=== PATIENT | female | born 1940 | race Caucasian/White ===

== ENCOUNTER 2018-08-17 11:49 | Outpatient (REF) | payer MEDICARE, SELFPAY ==
[2018-08-17 19:35] LABS: ALT 20 U/L (12-78); AST 12 U/L (15-37); Cholesterol 164 mg/dL (50-200); HDL Cholesterol 67 mg/dL (40-60); LDL CHOLESTEROL 73 mg/dL (<100); Triglyceride 134 mg/dL (30-150)
== END 2018-08-17 12:09 ==
LOC: NCHCN 11:49
PROVIDERS: PCP Nurse Practitioner Family; Visit Provider Nurse Practitioner Family
DX: E78.5 Hyperlipidemia, unspecified (principal); E03.9 Hypothyroidism, unspecified
CPT/HCPCS: 80061; 83721; 84443; 84450; 84460

== ENCOUNTER 2018-12-13 12:29 | Emergency (ER) | payer MEDICARE, SELFPAY ==
[2018-12-13] VITALS (20 sets, daily range): BP systolic 133–151; BP diastolic 62–75; PULSE 0–81; RESP 14–25; TEMP 36.4; O2SAT 96–100
--- NOTE | 2018-12-13 12:34 | ED.GENADUL_ITS ---
Discharge Plan Disposition Patient Disposition: [facility] Condition: Stable Discharge Details Chief Complaint: Chest Pain Clinical Impression: STEMI (ST elevation myocardial infarction) Primary Care Provider: Belinda Farley ED Provider: Iwona Roth Home Meds and New Rx's Prescriptions: No Action polyethylene glycol 3350 [Miralax] 17 GM powder in packet 17 gm PO for colonoscopy Qty: 1 RF: 0 simvastatin 40 MG tablet 1 tab PO HS RF: 0 levothyroxine [Synthroid] 25 MCG tablet 25 mcg PO DAILY RF: 0 Discharge Data Discharge Date/Time-TO BE ENTERED AT DEPARTURE: 12/13/18 13:37 Medical Decision Making 1235 -- 78-year-old female with history of hypothyroidism, hypertension, hyperlipidemia who presents with anterior chest pain that started while walking and working around the house ~ 2 hours ago. EKG noted a rate of 65, sinus with [address] elevation 1, 2, aVF, V2, [address] elevation in V3 and V6 and [address] elevation noted in V4 and V5 consistent with anterior lateral STEMI. Patient moved to room 2 and 2 large-bore IV started, IV fluids, 325 mg aspirin, heparin morphine, Zofran ordered. Pt is hemodynamically stable. BP 147/55. HR 60s. Her chest pain is 8/10. 1239 -- [facility] cardiology paged through transfer center. STEMI alert called. 1248 -- D/w [facility] cardiology - pt accepted for transfer to [facility] lab intern - accepting physician Dr. Willingham. Agrees with plan for heparin bolus and drip at this time, nitro drip at 40mcg/min for pain, and if [facility] can transport to [facility] within 1 hour, will hold on lytics, if more than 1 hour, would want lytics. 1256 -- [facility] will be here in 25 minutes. Will hold on TNK. 1303 -- d/w [facility] cardiology - based on timeframe of [facility] to transport pt to cathlab ~ 80 min total, would like give lytics at this time. Would like half the recommended dose TNK (which will be 15mg) and 75mg plavix PO. Patient agreeable with plan. 1324 -- [facility] in ED. Labs reviewed. Normal coagulation studies. pH 7.34 PCO2 52 on VBG. Mag 1.9. Troponin 0.61. BNP 126. Chest x-ray appears negative. Medical Records Medical records reviewed: Yes I reviewed the patient's medical records. Imaging Data Radiologic Study: Radiologist's impression: PORTABLE AP CHEST AT 12:45 HOURS: The heart is not enlarged. The lungs appear generally clear. Note is made of an apparent spinal stimulator overlying the lower thoracic region. CONCLUSION: No evidence of acute process. Lab Data Lab results reviewed: Yes I reviewed the patient's lab results. Laboratory Tests Range/Units 12/13/18 12/13/18 12/13/18 12:43 12:43 12:43 WBC (4.4-10.8) k/cumm 11.24 H RBC (4.00-5.20) m/cumm 4.65 Hgb (12.0-15.5) g/dL 14.1 Hct (36.0-46.0) % 42.8 MCV (80-95) fL 92.0 MCH (27.0-33.0) pg 30.3 MCHC (32.0-36.0) g/dL 32.9 RDW (11.7-14.6) % 14.8 H Plt Count (130-400) x1000/uL 345 MPV (8.0-11.0) fL 10.6 Immature Gran % 0.3 Neutrophils % 65.4 Lymphocytes % 22.3 Monocytes % 11.2 Eosinophils % 0.5 Basophils % 0.3 Absolute Neutrophils (1.2-6.7) k/cumm 7.35 H Absolute Lymphocytes (1.2-3.4) k/cumm 2.51 Absolute Monocytes (0.11-0.7) k/cumm 1.26 H Absolute Eosinophils (0.0-0.7) k/cumm 0.06 Absolute Basophils (0.0-0.2) k/cumm 0.03 PT (9.3-11.0) sec 9.9 INR (0.9-1.1) 1.0 APTT (21.0-31.4) sec 22.0 VBG pH (7.32-7.43) VBG pCO2 (34-47) mm/Hg VBG pO2 (28-44) mm/Hg VBG HCO3 (22-28) mmol/L VBG Total CO2 (22-29) mmol/L VBG O2 Saturation (70-80) % VBG Base Excess (-3-3) mmol/L Sodium (136-145) mmol/L 140 Potassium (3.5-5.1) mmol/L 4.2 Chloride (98-107) mmol/L 103 Carbon Dioxide (21.0-32.0) mmol/L 27.6 Anion Gap (3-11) mmol/L 9.4 BUN (7-18) mg/dL 7 Creatinine (0.55-1.02) mg/dL 0.64 Estimated GFR/1.73 m2 (mL/min/1.73m2) >= 60.00 Glucose (70-100) mg/dL 146 H Calcium (8.5-10.1) mg/dL 9.1 Magnesium (1.8-2.4) mg/dL Total Bilirubin (0.2-1.0) mg/dL 0.3 AST (15-37) U/L 14 L ALT (14-59) U/L 18 Alkaline Phosphatase (46-116) U/L 125 H Troponin I (0.00-0.06) ng/mL 0.61 H* NT-Pro-B Natriuret Pep ( - 299) pg/mL 126 Total Protein (6.4-8.2) g/dL 7.6 Albumin (3.4-5.0) g/dL 3.6 Range/Units 12/13/18 12/13/18 12:43 12:43 WBC (4.4-10.8) k/cumm RBC (4.00-5.20) m/cumm Hgb (12.0-15.5) g/dL Hct (36.0-46.0) % MCV (80-95) fL MCH (27.0-33.0) pg MCHC (32.0-36.0) g/dL RDW (11.7-14.6) % Plt Count (130-400) x1000/uL MPV (8.0-11.0) fL Immature Gran % Neutrophils % Lymphocytes % Monocytes % Eosinophils % Basophils % Absolute Neutrophils (1.2-6.7) k/cumm Absolute Lymphocytes (1.2-3.4) k/cumm Absolute Monocytes (0.11-0.7) k/cumm Absolute Eosinophils (0.0-0.7) k/cumm Absolute Basophils (0.0-0.2) k/cumm PT (9.3-11.0) sec INR (0.9-1.1) APTT (21.0-31.4) sec VBG pH (7.32-7.43) 7.34 VBG pCO2 (34-47) mm/Hg 52 H VBG pO2 (28-44) mm/Hg 30 VBG HCO3 (22-28) mmol/L 28 VBG Total CO2 (22-29) mmol/L 25 VBG O2 Saturation (70-80) % 60 L VBG Base Excess (-3-3) mmol/L 2.0 Sodium (136-145) mmol/L Potassium (3.5-5.1) mmol/L Chloride (98-107) mmol/L Carbon Dioxide (21.0-32.0) mmol/L Anion Gap (3-11) mmol/L BUN (7-18) mg/dL Creatinine (0.55-1.02) mg/dL Estimated GFR/1.73 m2 (mL/min/1.73m2) Glucose (70-100) mg/dL Calcium (8.5-10.1) mg/dL Magnesium (1.8-2.4) mg/dL 1.9 Total Bilirubin (0.2-1.0) mg/dL AST (15-37) U/L ALT (14-59) U/L Alkaline Phosphatase (46-116) U/L Troponin I (0.00-0.06) ng/mL NT-Pro-B Natriuret Pep ( - 299) pg/mL Total Protein (6.4-8.2) g/dL Albumin (3.4-5.0) g/dL ECG Data Attestation: I personally reviewed and interpreted this ECG (s) as follows: Interpretation: Rate of 65, sinus, [address] elevation 1, 2, aVF, V2, [address] elevation in V3 and V6 and [address] elevation noted in V4 and V5. No acute ST depression. NJ 182. QTc 405. QRS 78. HPI General Mode of arrival: ambulatory . Date/Time Provider Initiated Documentation: 12/13/18 12:30 . Limitations to Documentation: no limitations . Information obtained by: patient . HPI Narrative: Patient is a 78-year-old female with a history of hypothyroidism, hypertension and hyperlipidemia who presents with anterior chest pain that started 2 hours ago while walking and working around the house. She denies any significant strenuous activity. She denies shortness of breath, dizziness but does admit to intermittent nausea that is now resolved. She states her pain is currently 8/10. She denies any radiation of pain to her jaw, back or arms. She has not eaten anything yet today. Related Data Home Medications Medication Instructions Recorded Confirmed levothyroxine [Synthroid] 25 mcg PO DAILY 03/14/13 12/13/18 simvastatin 1 tab PO HS 03/14/13 12/13/18 polyethylene glycol 3350 [Miralax] 17 gm PO for colonoscopy #1 gm 05/20/16 12/13/18 Allergies Allergy/AdvReac Type Severity Reaction Status Date / Time No Known Allergies Allergy Unverified 12/13/18 12:47 Review of Systems Review of Systems All systems reviewed & are unremarkable except as noted in HPI and below Constitutional Reports as per HPI, Denies chills and Denies fever(s) Eyes Denies blurry vision ENT Denies dizziness, Denies sore throat and Denies throat swelling Cardiovascular Reports chest pain and Denies dyspnea Respiratory Denies cough and Denies dyspnea Gastrointestinal Denies abdominal pain, Denies diarrhea and Denies vomiting Genitourinary Denies hematuria and Denies dysuria Musculoskeletal Denies back pain and Denies numbness Integumentary/Breasts Denies lesions and Denies rash Neurologic Denies dizziness, Denies focal weakness and Denies numbness Allergic/Immunologic Denies throat swelling PFSH Medical History Abdominal bloating Constipation Cystocele HLP HTN Hypothyroidism smoking cessation Uterine prolaps Surgical History Colonoscopy (05/04/10) Colonoscopy - IV Sedation (05/27/16) Rectocele, Paravaginal repair Social History Smoking/Tobacco Use Status: Current-Occasional Alcohol Intake: current Alcohol Intake frequency: a few times a month Drug use: Never Do you feel safe at home: Yes Do you feel safe in your relationship?: Yes Exam Const General: cooperative, healthy appearing and no acute distress HENMT Head: normal to inspection Face and sinus: normal facial exam Eyes General: appearance normal, both eyes and all related structures EOM: EOM intact bilaterally Neck Neck: normal visual inspection and No submandibular swelling Lymphatic: no lymphadenopathy noted Chest Chest: normal inspection of the chest and no tenderness Resp Effort & Inspection: normal respiratory effort and able to speak in complete sentences Auscultation: clear to auscultation bilaterally Cardio Rate: regular rate Rhythm: regular rhythm GI Inspection: normal to inspection Palpation: soft, not firm, not rigid and nontender Auscultation: normal bowel sounds Skin General skin exam: no rashes or lesions noted Neuro General: alert, awake and oriented x3 Cognition: normal cognition Speech: speech normal Motor: muscle tone normal throughout Sensory Exam: no sensory deficits noted Extrem General: normal to inspection, full ROM, normal capillary refill, no calf tenderness bilaterally and no edema Psych Appearance: grossly normal Mental Status: mental status grossly normal Speech and Movement: speech and movement normal Affect: normal affect
--- NOTE | 2018-12-13 12:43 | DI.RAD_ITS ---
SYMPTOMS/DIAGNOSIS: STEMI, CHEST PAIN PORTABLE AP CHEST AT 12:45 HOURS: The heart is not enlarged. The lungs appear generally clear. Note is made of an apparent spinal stimulator overlying the lower thoracic region. CONCLUSION: No evidence of acute process.
[2018-12-13] MEDS: Aspirin 81 MG CHEW 324 MG CH (12:45)
[2018-12-13 12:50] LABS: HCO3 (Venous) 28 mmol/L (22-28); O2 Sat (Venous) 60 % (70-80); TCO2 (Venous) 25 mmol/L (22-29); pCO2 (Venous) 52 mm/Hg (34-47); pH (Venous) 7.34 (7.32-7.43); pO2 (Venous) 30 mm/Hg (28-44)
[2018-12-13] MEDS: Normal Saline 1,000 ML 1000 ML IV (12:50)
[2018-12-13] MEDS: Ondansetron 4 MG/2 ML VIAL IVP (12:51)
[2018-12-13] MEDS: MORPHine 10 MG/ML VIAL 4 MG IVP (12:51)
[2018-12-13 12:52] LABS: Abs Immature Grans 0.03 k/cumm (0.0-0.09); Absolute Basophil Count 0.03 k/cumm (0.0-0.2); Absolute Eosinophil Count 0.06 k/cumm (0.0-0.7); Absolute Lymphocyte Count 2.51 k/cumm (1.2-3.4); Absolute Monocyte Count 1.26 k/cumm (0.11-0.7); Absolute Neutrophil Count 7.35 k/cumm (1.2-6.7); Basophils % 0.3; Eosinophils % 0.5; HCT 42.8 % (36.0-46.0); HGB 14.1 g/dL (12.0-15.5); Immature Grans % 0.3; Lymphocytes % 22.3; Mean Corp. HGB Concentration 32.9 g/dL (32.0-36.0); Mean Corpuscular Hemoglobin 30.3 pg (27.0-33.0); Mean Platelet Volume 10.6 fL (8.0-11.0); Monocytes % 11.2; Neutrophils % 65.4; Platelet Count 345 x1000/uL (130-400); RBC 4.65 m/cumm (4.00-5.20); RBC Distribution Width 14.8 % (11.7-14.6); White Blood Cell Count 11.24 k/cumm (4.4-10.8)
[2018-12-13] MEDS: Heparin 5,000 UNITS/ML VIAL 2640 UNITS IVP (12:57)
[2018-12-13 13:05] LABS: Prothrombin Time 9.9 sec (9.3-11.0)
[2018-12-13] MEDS: Clopidogrel 75 MG TAB PO (13:09)
[2018-12-13] MEDS: Tenecteplase 50 MG KIT 15 MG IVP (13:10)
[2018-12-13 13:16] LABS: Magnesium 1.9 mg/dL (1.8-2.4)
[2018-12-13 13:27] LABS: ALT 18 U/L (14-59); AST 14 U/L (15-37); Albumin 3.6 g/dL (3.4-5.0); Alkaline Phosphatase 125 U/L (46-116); Anion Gap 9.4 mmol/L (3-11); BUN 7 mg/dL (7-18); Bilirubin, Total 0.3 mg/dL (0.2-1.0); CO2 27.6 mmol/L (21.0-32.0); CREATININE 0.64 mg/dL (0.55-1.02); Calcium 9.1 mg/dL (8.5-10.1); Chloride 103 mmol/L (98-107); Glucose 146 mg/dL (70-100); NT-proBNP 126 pg/mL; Potassium 4.2 mmol/L (3.5-5.1); Sodium 140 mmol/L (136-145); Total Protein 7.6 g/dL (6.4-8.2)
[2018-12-13 13:28] LABS: Troponin I 0.61 ng/mL (0.00-0.06)
--- NOTE | 2018-12-13 13:30 | NUR.NOTE ---
Nursing Note: 1324- [facility] arrived, care transferred.
--- NOTE | 2018-12-13 13:42 | NUR.NOTE ---
sbar to nurse prakash at [facility] medical lab technologist pt transported via air ems belongings with Nursing Note:
== END 2018-12-13 13:37 | disposition short-term general hospital (02) ==
LOC: ER 13:16
PROVIDERS: Student in an Organized Health Care Education/Training Program; Emergency Provider Physician Assistant; PCP Nurse Practitioner Family
DX: I21.09 ST elevation (STEMI) myocardial infarction involving other coronary artery of anterior wall; R11.0 Nausea; F17.210 Nicotine dependence, cigarettes, uncomplicated; I10 Essential (primary) hypertension
CPT/HCPCS: 36415; 80053; 82805; 93005; 96361; 96365; 96368; 96375; 96376; 99285; 71045; 83735; 83880; 84484; 85025; 85610; 85730; 93010; J1644; J2270; J2405; J3101; J3490

== ENCOUNTER 2019-03-11 00:55 | Outpatient (CLI) | payer MEDICARE, SELFPAY ==
--- NOTE | 2019-03-11 14:07 | DI.US_ITS ---
EXAM: US CAROTID CLINICAL HISTORY: RT CAROTID BRUIT, R09.89 TECHNIQUE: Ultrasound carotids performed using grayscale, color-flow, and spectral Doppler imaging. COMPARISON: No exams were available for comparison FINDINGS: RIGHT CAROTID ARTERY: Plaque: [id number] calcific plaque is seen in the carotid bulb and proximal internal carotid ar juan. Velocity elevation: No hemodynamically significant velocity elevation. LEFT CAROTID ARTERY: Plaque: Moderate calcific plaque seen in the carotid bulb and proximal internal carotid artery. Mild calcific plaque seen in the proximal external carotid artery. Velocity elevation: No hemodynamically significant velocity elevation. VERTEBRAL ARTERIES: Antegrade flow. IMPRESSION: No evidence for hemodynamically significant carotid stenosis. Criteria for Carotid Stenosis: Normal: ICA PSV <125 cm/s no plaque or intimal thickening is visible. <50% stenosis: ICA PSV <125 cm/s and plaque or intimal thickening is visible. 50-69% stenosis: ICA PSV is 125-250 cm/s and plaque is visible. >70% stenosis to near occlusion: ICA PSV >250 cm/s with visible plaque and luminal narrowing.
== END 2019-03-11 01:15 ==
PROVIDERS: PCP Nurse Practitioner Family; Visit Provider Internal Medicine Cardiovascular Disease
DX: R09.89 Other specified symptoms and signs involving the circulatory and respiratory systems (principal); I65.23 Occlusion and stenosis of bilateral carotid arteries
CPT/HCPCS: 93880

== ENCOUNTER 2020-02-07 13:26 | Outpatient (REF) | payer MEDICARE, SELFPAY ==
[2020-02-07 19:05] LABS: Abs Immature Grans 0.03 10^3/uL (0.0-0.06); Absolute Basophil Count 0.07 10^3/uL (0.0-0.2); Absolute Eosinophil Count 0.09 10^3/uL (0.0-0.7); Absolute Lymphocyte Count 1.88 10^3/uL (1.2-3.4); Basophils % 0.9; Eosinophils % 1.1; HCT 46.4 % (36.0-46.0); HGB 15.2 g/dL (11.2-15.7); Immature Grans % 0.4; Lymphocytes % 23.3; MCH 30.8 pg (27.0-33.0); MCHC 32.8 % (32.0-36.0); MCV 94.1 fL (80-95); MPV 11.8 fL (8.0-11.0); Monocytes % 11.2; Neutrophils % 63.1; Nucleated RBC 0 %; Platelet Count 258 10^3/uL (130-400); RBC 4.93 10^6/uL (3.93-5.22); RDW 14.1 % (11.7-14.6); RDW-SD 49.1 fL; WBC 8.07 10^3/uL (4.4-10.8)
[2020-02-07 19:24] LABS: ALT 29 U/L (14-59); AST 19 U/L (15-37); Albumin 3.8 g/dL (3.4-5.0); Alkaline Phosphatase 82 U/L (46-116); BUN 15 mg/dL (7-18); Bilirubin, Total 0.5 mg/dL (0.2-1.0); Calcium 9.2 mg/dL (8.5-10.1); Calculated LDL 104 mg/dL (<100); Chloride 101 mmol/L (98-107); Cholesterol 196 mg/dL (<200); Glucose 90 mg/dL (74-106); HDL Cholesterol 69 mg/dL (40-60); Potassium 4.6 mmol/L (3.5-5.1); Sodium 139 mmol/L (136-145); TSH (W/Ref FT4) 9.85 uIU/mL (0.36-3.74); Total Protein 7.1 g/dL (6.4-8.2); Triglyceride 115 mg/dL (<150)
[2020-02-07 19:57] LABS: FREE T4 0.99 ng/dL (0.76-1.46)
[2020-02-07 20:35] LABS: Hemoglobin A1C 5.8 % (<5.7)
== END 2020-02-07 13:46 ==
LOC: NCHCN 13:26
PROVIDERS: PCP Nurse Practitioner Family; Visit Provider Physician Assistant
DX: E78.5 Hyperlipidemia, unspecified (principal); E03.9 Hypothyroidism, unspecified; R73.9 Hyperglycemia, unspecified
CPT/HCPCS: 80053; 80061; 83036; 84439; 84443; 85025

== ENCOUNTER 2021-01-04 08:48 | Outpatient (REF) | payer OTHER, SELFPAY ==
[2021-01-04 19:19] LABS: Calculated LDL 158 mg/dL (<100); Cholesterol 261 mg/dL (<200); HDL Cholesterol 79 mg/dL (40-60); TSH 9.93 uIU/mL (0.36-3.74); Triglyceride 120 mg/dL (<150)
== END 2021-01-04 08:49 | disposition home or self-care (01) ==
LOC: NCHCN 08:48
PROVIDERS: PCP Nurse Practitioner Family; Visit Provider Physician Assistant
DX: E78.49 Other hyperlipidemia (principal); E03.9 Hypothyroidism, unspecified
CPT/HCPCS: 80061; 84443

== ENCOUNTER 2021-04-07 15:02 | Outpatient (REF) | payer MEDICARE, SELFPAY ==
[2021-04-07 20:48] LABS: ALT 30 U/L (14-59); AST 17 U/L (15-37); Albumin 3.7 g/dL (3.4-5.0); Alkaline Phosphatase 86 U/L (46-116); Bilirubin, Total 0.3 mg/dL (0.2-1.0); Calculated LDL 60 mg/dL (<100); Cholesterol 149 mg/dL (<200); HDL Cholesterol 74 mg/dL (40-60); TSH (W/Ref FT4) 0.31 uIU/mL (0.36-3.74); Total Protein 6.8 g/dL (6.4-8.2); Triglyceride 79 mg/dL (<150)
[2021-04-07 21:12] LABS: Bilirubin, Direct 0.1 mg/dL (0.0-0.2); FREE T4 1.29 ng/dL (0.76-1.46)
== END 2021-04-07 15:03 | disposition home or self-care (01) ==
LOC: NCHCN 15:02
PROVIDERS: PCP Nurse Practitioner Family; Visit Provider Physician Assistant
DX: E78.5 Hyperlipidemia, unspecified (principal); E03.9 Hypothyroidism, unspecified
CPT/HCPCS: 80061; 80076; 84439; 84443

== ENCOUNTER 2022-08-02 11:53 | Outpatient (REF) | payer MEDICARE, SELFPAY ==
[2022-08-02 20:01] LABS: Abs Immature Grans 0.01 10^3/uL (0.0-0.06); Absolute Basophil Count 0.05 10^3/uL (0.0-0.2); Absolute Eosinophil Count 0.17 10^3/uL (0.0-0.7); Absolute Lymphocyte Count 1.79 10^3/uL (1.2-3.4); Absolute Monocyte Count 0.91 10^3/uL (0.1-0.8); Absolute Neutrophil Count 3.54 10^3/uL (1.2-6.7); Basophils % 0.8; Eosinophils % 2.6; HCT 43.3 % (36.0-46.0); HGB 14.2 g/dL (11.2-15.7); Immature Grans % 0.2; Lymphocytes % 27.7; MCH 29.9 pg (27.0-33.0); MCHC 32.8 % (32.0-36.0); MCV 91 fL (80-95); MPV 11.6 fL (8.0-11.0); Monocytes % 14.1; Neutrophils % 54.6; Platelet Count 255 10^3/uL (130-400); RBC 4.75 10^6/uL (3.93-5.22); RDW 13.2 % (11.7-14.6); RDW-SD 44.2 fL; WBC 6.47 10^3/uL (4.4-10.8)
[2022-08-02 20:20] LABS: ALT 30 U/L (14-59); AST 22 U/L (15-37); Albumin 3.7 g/dL (3.4-5.0); Alkaline Phosphatase 132 U/L (46-116); Anion Gap 7.8 mmol/L (3-11); BUN 17 mg/dL (7-18); Bilirubin, Total 0.6 mg/dL (0.2-1.0); CO2 29.2 mmol/L (21.0-32.0); CREATININE 0.8 mg/dL (0.55-1.02); Calcium 9.2 mg/dL (8.5-10.1); Calculated LDL 82 mg/dL (<100); Chloride 103 mmol/L (98-107); Cholesterol 193 mg/dL (<200); Estimated GFR 74.44 (mL/min/1.73m2); Glucose 97 mg/dL (74-106); HDL Cholesterol 88 mg/dL (40-60); Potassium 4.6 mmol/L (3.5-5.1); Sodium 140 mmol/L (136-145); TSH 0.66 uIU/mL (0.36-3.74); Total Protein 7.5 g/dL (6.4-8.2); Triglyceride 115 mg/dL (<150)
== END 2022-08-02 11:54 | disposition home or self-care (01) ==
LOC: NCHCN 11:53
PROVIDERS: PCP Physician Assistant; Visit Provider Physician Assistant
DX: E03.9 Hypothyroidism, unspecified (principal); I25.5 Ischemic cardiomyopathy; I25.2 Old myocardial infarction
CPT/HCPCS: 80053; 80061; 84443; 85025

== ENCOUNTER 2024-05-03 15:34 | Outpatient (REF) | payer MEDICARE, SELFPAY ==
--- OUTSIDE RECORDS SUMMARY | 2024-05-03 15:41 | XMS_ITS | Encounter Summary ---
Author Organization [facility] Address [facility] [place] [address] Care Team Providers Care Terrazzo Worker Apprentice Name Role Phone BobAislinn cervantes Kelton BUCKLEY Primary Care Provider + Encounter Details Date Type Department Care Team (Late st Contact Info) Description 05/14/2019 Telephone Cardiology at [address] [phone] Jair Pereira MD [facility] [place] [address] [place] [address] Social History Tobacco Use Types Packs/Day Years Used Date Smoking Tobacco: Former Sex and Gender Information Value Date Recorded Sex Assigned at Not on file Gender Identity Not on file Sexual Orientation Not on file documented as of this encounter Miscellaneous Notes * Telephone Encounter - Nenita Galan RN - 05/23/2019 1:44 PM EST [facility] staff Jamee called from radiology. The reported that the pateint canceled her appointment for anechocardiogram. She told them she would call to reschedule. Patient's echo has been scheduled, then no-show or rescheduled for these dates: March 11 March 27 April 09 April 19 May 12 May [address] Pereira and cancel the order. * Telephone Encounter - Nenita Galan RN - 05/14/2019 11:49 AM EST This patient did not go to the echo appointment because it took too much time. She will not be contacted for further follow up appointments. * Telephone Encounter - Rebecca Flor - 05/14/2019 9:27 AM EST Called patient to jonny appt from 05/20/2019. She said she has not decided if she wants to return for appts. I tod her that we are here if she needs us, not to hesitate to call. documented in this encounter Plan of Treatment Not on file documented as of this encounter Visit Diagnoses Not on filedocumented in this encounter Care Teams Terrazzo Worker Apprentice Relationship Specialty Start Date End Date Aislinn William APRN PCP - General Family Medicine 12/13/18 documented as of this encounter
--- OUTSIDE RECORDS SUMMARY | 2024-05-03 15:41 | XMS_ITS | Clinical Summary ---
Author Organization [facility] Address [address] [place] [address] Care Team Providers Care Cordwood Cutter Helper Name Role Phone Chuy Rush Primary Care Provider [phone] Social History Tobacco Use Types Packs/Day Years Used Date Smoking Tobacco: Never Assessed Comments Unknown Sex and Gender Information Value Date Recorded Sex Assigned at Not on file Legal Sex Female 18:12 EST Gender Identity Not on file Sexual Orientation Not on file Plan of Treatment Health Maintenance Due Date Last Done Comments Fall Risk Screening 2006 RSV Immunization ( o r 60+ Years) (1 - 1-dose 75+ series) 2016 COVID-19 Vaccine ( season) 2023 Care Teams Cordwood Cutter Helper Relationship Specialty Start Date End Date Chuy Rush PA [address] [place] [id number] PCP - General 02/21/15
--- OUTSIDE RECORDS SUMMARY | 2024-05-03 15:41 | XMS_ITS | Clinical Summary ---
Author Organization [facility] Address [facility] [place] [address] Care Team Providers Care Agricultural Inspector Name Role Phone Aislinn William APRN Primary Care Provider + Allergies No known active allergies Medications Medication Sig Dispensed Refills Start Date End Date Status LEVOTHYROXINE SODIUM (SYNTHROID ORAL) 05/03/2005 Active estrogens, conjugated, (PREMARIN) vaginal cream Taper/Titrate, VagTaper/Titrate, Vag. Take 0.625MG/1G Once daily for 7 Days.Take 0.3125MG/0.5G twice a week for 3 Weeks. 05/03/2005 Active aspirin 81 mg Tablet, Delayed Release (E.C.) Take 1 tablet by mouth daily. 30 tablet 3 12/16/2018 Active atorvastatin (LIPITOR) 80 mg Tablet Take 1 tablet by mouth every evening. 90 tablet 3 12/15/2018 Active lisinopril (PRINIVIL;ZESTRIL) 2.5 mg Tablet Take 1 tablet by mouth daily. 90 tablet 3 12/16/2018 Active magnesium oxide (MAG-OX) 400 mg (241.3 mg magnesium) Tablet Take 1 tablet by mouth 2 times daily. 30 tablet 12 12/15/2018 Active Additional Information Patient not taking.Reported on 01/15/2019 nicotine polacrilex (COMMIT) [address] 1 lozenge inside cheek every hour as needed for Smoking cessation. 100 tablet 3 12/15/2018 Active Additional Information Patient not taking.Reported on 01/15/2019 nitroGLYcerin (NITROSTAT) 0.4 mg Tablet, Sublingual Place 1 tablet under the tongue every 5 minutes as needed for Chest pain. 90 tablet 12 12/15/2018 Active Additional Information Patient not taking.Reported on 01/15/2019 nicotine (NICODERM CQ) 14 mg/[address] 1 patch onto the skin daily. 28 patch 3 12/15/2018 Active Additional Information Patient not taking.Reported on 01/15/2019 acetaminophen (TYLENOL) 325 mg Tablet Take 2 tablets by mouth every 4 hours as needed. 30 tablet 1 12/15/2018 Active metoprolol succinate (TOPROL-XL) 100 mg Tablet Sustained Release 24 hr Take 1 tablet by mouth daily. 30 tablet 3 12/15/2018 Active buPROPion (WELLBUTRIN SR) 100 mg tablet sustained-release 12 hr Take 1 tablet by mouth daily. Prescribed by HOLLAND Dempsey 2 12/28/2018 Active Active Problems Problem Noted Date Diagnosed Date Cardiomyopathy, ischemic 01/15/2019 Overview (01/15/2019): 12/2018 (anterolateral stemi of unclear etiology) EF 49%. The mid anteroseptal, apical septal, apical anterior, apical lateral, and apical inferior wall segments are akinetic (score 3). The mid anterior, mid anterolateral, mid inferior, and mid inferoseptal wall segments are hypokinetic (score 2). Assessment & Plan (01/15/2019 4:46 PM EDT): - Diuresis: not needed - Cardioprotection: toprol 100, lisinopril 2.5 - Devices: none indicated Right carotid bruit 01/15/2019 Assessment & Plan (01/15/2019 4:46 PM EDT): Carotid duplex STEMI (ST elevation myocardial infarction) 12/13 Overview (01/15/2019): 12/13/2018: typical presentation, with diffuse RENA Received half dose lytics at [facility] Cath: no obstructive disease. No clear culprit Assessment & Plan (01/15/2019 4:44 PM EDT): I don't think I have a clear understanding of the rationale behind the patient's evident STEMI with typical presentation. I dont think it is stress CDM as she had coronary distribution HK on the echocardiogram. A paradoxical embolus would fit the presentation. If no intra-cardiac shunt identified, would consider rhythm monitoring - TTE (attention: LV global and regional function, agitated saline study to evaluate for PFO) - Continue asa, lipitor 80 - patient has stopped smoking Hyperlipidemia 12/13/2018 Hypertension 12/13/2018 Hypothyroidism 12/13/2018 History of tobacco use 12/13/2018 Social History Tobacco Use Types Packs/Day Years Used Date Smoking Tobacco: Former Sex and Gender Information Value Date Recorded Sex Assigned at Not on file Gender Identity Not on file Sexual Orientation Not on file Last Filed Vital Signs Vital Sign Reading Time Taken Comments Blood Pressure 114/57 01/15/2019 3:42 PM EDT Pulse 67 01/15/2019 3:42 PM EDT Temperature 37.1 ??C (98.8 ??F) 12/15/2018 8:00 AM ED T Respiratory Rate 14 01/15/2019 3:42 PM EDT Oxygen Saturation 95% 12/15/2018 4:00 PM EDT Inhaled Oxygen Concentration - - Weight 44 kg (97 lb) 01/15/2019 3:42 PM EDT Height 152.4 cm (5') 12/13/2018 2:17 PM EDT Body Mass Index 18.94 12/13/2018 2:17 PM EDT Plan of Treatment Health Maintenance Due Date Last Done Comments Tetanus/Diphtheria/Pertussis Vaccines (1 - Tdap) 09/03 Pneumoccocal Vaccine: 50+ (1 of 1 - PCV) 09/04/1991 Zoster vaccine (1 of 2) 09/04/1991 Advance Directive 1996 Bone Density Scan 2006 RSV Vaccine (1 - 1-dose 75+ series) 2016 Covid-19 Vaccine (1 - 2023- season) 2023 Influenza (Flu) vaccine (1 o f 1 - Influenza standard series) 12/10/2023 Advance Directives * Full Code (Latest Code Status on File) Date Activated Date Inactivated Comments 12/13/2018 5:10 PM 12/15/2018 7:45 PM Question Answer Comments Does patient have capacity to make decision: Yes * Full Code Date Activated Date Inactivated Comments 12/13/2018 3:35 PM 12/13/2018 5:10 PM Question Answer Comments Does patient have capacity to make decision: Yes Care Teams Agricultural Inspector Relationship Specialty Start Date End Date Aislinn William, INA PCP - General Family Medicine 12/13/18
--- OUTSIDE RECORDS SUMMARY | 2024-05-03 15:41 | XMS_ITS | Encounter Summary ---
Author Organization [facility] [place] [address] Care Team Providers Care Asset Recovery Specialist Name Role Phone BobAislinn cervantes Kelton BUCKLEY Primary Care Provider + Encounter Details Date Type Department Care Team (Late st Contact Info) Description 12/14/2018 Notes Only Cardiology at [address] [phone] Norris Sifuentes Social History Tobacco Use Types Packs/Day Years Used Date Smoking Tobacco: Never Assessed Sex and Gender Information Value Date Recorded Sex Assigned at Not on file Gender Identity Not on file Sexual Orientation Not on file documented as of this encounter Progress Notes * Norris Sifuentes - 12/14/2018 2:34 PM EDT Safe STEMI for Seniors A prospective, Multi-center, Unblinded, Randomized trial in Primary PCI Subjects, 65 or Older to assess Safety and Efficacy of Radial Access, Medtronic Resolute Family of Stents, Terumo Hemostasis Device and Complete versus Infarct Related Vessel Revascularization. Surface Grinding Machine Hand Lary Willingham M.D. Pager # [phone] I met with Estelle in follow up to her presentation to the electroplating laborer with a diagnosis of STEMI. At the time of presentation, subject gave consent to participate in the Safe STEMI trial. As this was done in the setting of acute care, this conversation was a follow up to obtain contact information as required by the study protocol and to answer any incidental questions related to the study. Estelle confirmed that she would continue in the study. documented in this encounter Plan of Treatment Not on file documented as of this encounter Visit Diagnoses Not on filedocumented in this encounter Care Teams Asset Recovery Specialist Relationship Specialty Start Date End Date Aislinn William APRN PCP - General Family Medicine 12/13/18 documented as of this encounter
--- OUTSIDE RECORDS SUMMARY | 2024-05-03 15:41 | XMS_ITS | Encounter Summary ---
Author Organization [facility] Address [facility] [place] [address] Care Team Providers Care School Secretary Name Role Phone Aislinn William APRN Primary Care Provider + Encounter Details Date Type Department Care Team (Late st Contact Info) Description 01/17/2019 Telephone Cardiology at [address] [phone] Jair Pereira MD [facility] [address] Social History Tobacco Use Types Packs/Day Years Used Date Smoking Tobacco: Former Sex and Gender Information Value Date Recorded Sex Assigned at Not on file Gender Identity Not on file Sexual Orientation Not on file documented as of this encounter Miscellaneous Notes * Telephone Encounter - Rebecca Flor - 01/17/2019 10:[address] Pereira, please redo the Echo and Carotid to be done @ [facility] as she has financial help with her medical for there. Thank you. Carmela documented in this encounter Plan of Treatment Not on file documented as of this encounter Visit Diagnoses Diagnosis Cardiomyopathy, ischemic Other specified forms of chronic ischemic heart disease ST elevation myocardial infarction (STEMI), unspecified artery Right carotid bruit Other symptoms involving cardiovascular system documented in this encounter Care Teams School Secretary Relationship Specialty Start Date End Date Aislinn William APRN PCP - General Family Medicine 12/13/18 documented as of this encounter
--- OUTSIDE RECORDS SUMMARY | 2024-05-03 15:41 | XMS_ITS | Encounter Summary ---
Author Organization [facility] [place] [address] Care Team Providers Care Hotel Or Motel Receptionist Name Role Phone BobAislinn cervantes Kelton BUCKLEY Primary Care Provider + Reason for Referral * Consultation (Routine) - Specialty Diagnoses / Procedures Referred By Contact Referred To Contact Cardiac Rehabilitation Diagnoses ST elevation myocardial infarction (STEMI), unspecified artery Neo Mcmanus MD [facility] [place] [place] [address] Cardiac Rehab, [address] [place] [address] Referral ID Status Reason Start Date Expiration Date V isits Requested Visits Authorized [id number] Consult, Test & Treat 12/15/2018 06/13/2019 36 36 Reason for Visit * Auth/Cert Specialty Diagnoses / Procedures Referred By Contac t Referred To Contact Diagnoses Acute ST elevation myocardial infarction (STEMI) STEMI Procedures CARDIAC CATHETERIZATION Referral ID Status Reason Start Date Expiration Date Visits Re quested Visits Authorized [id number] 1 1 Encounter Details Date Type Department Care Team (Latest Contact Info) Description 12/13/2018 2:14 PM EDT - 12/15/2018 5:30 PM EDT Hospital Encounter Cardi[place] [address] Neo Mcmanus MD [facility] [place] [address] Lary Willingham MD [facility] [place] [address] [place] [address] ST elevation myocardial infarction involving left anterior descending (LAD) coronary artery; ST elevation myocardial infarction (STEMI), unspecified artery Discharge Disposition: Home Social History Tobacco Use Types Packs/Day Years Used Date Smoking Tobacco: Never Assessed Sex and Gender Information Value Date Recorded Sex Assigned at Not on file Gender Identity Not on file Sexual Orientation Not on file documented as of this encounter Last Filed Vital Signs Vital Sign Reading Time Taken Comments Blood Pressure 124/94 12/15/2018 4:00 PM EDT Pulse 69 12/15/2018 4:00 PM EDT Temperature 37.1 ??C (98.8 ??F) 12/15/2018 8:00 AM ED T Respiratory Rate 19 12/15/2018 4:00 PM EDT Oxygen Saturation 95% 12/15/2018 4:00 PM EDT Inhaled Oxygen Concentration - - Weight 42.4 kg (93 lb 7.6 oz) 12/15/2018 4:00 AM EDT Height 152.4 cm (5') 12/13/2018 2:17 PM EDT Body Mass Index 18.26 12/13/2018 2:17 PM EDT documented in this encounter Discharge Summaries * Chuy Feng MD - 12/15/2018 2:33 PM EDT Discharge Summary Patient Name: Estelle Ramirez Patient Age: 78 y.o. Language: Ecuadorean Race: White Ethnicity: Not nor Admit date: 12/13/2018 Discharge date and time: 12/15/2018; 1600 Attending Physician: Neo Guallpa MD Discharge Physician: Chuy Feng MD Follow-up Recommendations for Providers: -Encourage and reinforce complete abstinence from tobacco -Patient should continue taking her home levothyroxine 88mcg qd, may continue her home estrogen cream, but should no longer take simvastatin 20mg qd as she is being discharged with Rx for a high-intensity statin (atorvastatin 80mg qd) -Patient has two teeth scheduled to be pulled next week; opinion of the cardiology team is that thepatient should have these dental extractions delayed by about 2 weeks post-discharge -Patient has scheduled PCP f/u on 12/24/18 at 11am, we will call her PCP on 12/17/18 to ensure the patient is reached out to and notified Inpatient Provider Contact Information: Dr. Neo Mcmanus MD For questions regarding this document or issues relating to this hospitalization on the Medical Service, please contact your inpatient physician through the [facility] Parks Recreation Director . Issues afterhours and on weekends will be handled by the Hospitalist staff on-call. Discharge Diagnoses (Hospital Problems) and Secondary Diagnoses (Chronic Problems): Active Hospital Problems Diagnosis ??? STEMI (ST elevation myocardial infarction) ??? Hyperlipidemia ??? Hypertension ??? Hypothyroidism ??? History of tobacco use Resolved Hospital Problems No resolved problems to display. There are no active non-hospital problems to display for this patient. Operations/Major Procedures: Left heart catheterization with coronary angiography on 12/13/2018 History of Presentation: Ms. Estelle Ramirez is a 78-year-old female with a history of HLD, HTN, hypothyroidism, and active tobacco use who presented to [facility] via [facility] as transfer from [facility] for non-radiating chest pain foundto have anterolateral and inferior lead ST elevation. She had been working around the house this morning (baking, dishes, etc) when she acutely developed pain across her chest. She describes the painas a sharp, lingering pain that lasted for about 2 hours. The pain was not progressive; it started at about a 9/[address] until it resolved. The pain did not radiate anywhere. There wereno associated symptoms. The pain was not positionally dependent or worsened by breathing. She has never had any sort of pain or symptom like this before. She denies any recent development of dyspnea or orthopnea; she denies any recent URI symptoms. After having the pain for about 2 hours her took her to [facility]. At [facility], EKG showed ST elevations in the inferior and anterolateral leads, with troponin elevated at 0.61. ?? She first presented to [facility] at 1230 and left [facility] via [facility] at 1345. Prior to arriving here per shereceived half-dose TNK lytic therapy (per recommendation by operational meteorologist here), 75mg of clopidogrel, and 325mg of aspirin; she was also started on a heparin drip. Of note is that her chest pain abated fully shortly before leaving [facility]. Hospital Course: The coronary angiography conducted here at [facility], as noted above, was conducted after receipt of half-dose lytic therapy in route. Angiography demonstrated mild diffuse disease of the entire LAD and a30% hazy single discrete stenosis of the ostial segment of the L PDA of the left circumflex, thoughnotably no lesions which could reasonably account for the patient's symptoms were identified. As such, no percutaneous coronary intervention was taken. Our suspicion is that the most likely explanation for this is that the patient indeed did suffer a myocardial infarction, but the half-dose lytic therapy she received an route to [facility] resulted in abolition of the lesion. Post-Rouge Sifter, the patient was started on the appropriate medications for AR, although because she did not receive a that she is not being started on Plavix. She was started on aspirin, BOLIVAR inhibition, beta-blockade, and a high-intensity statin. The patient had an uneventful recovery post-AR. Post-AR transthoracic echocardiogram demonstrated LVEF of 49% with numerous segmental akinetic wall motion abnormalities and hypokinetic wall motion abnormalities, as described below in the TTE summary. Itis difficult to predict just how much myocardial functional improvement the patient will experiencein convalescence from this myocardial infarction. Given that the patient was recovering well from the AR, and she was feeling comfortable and was vitally stable, decision was made to discharge patient home on day 2 of hospital admission here. Post-discharge PCP arranged; cardiology follow-up will be arranged. Of note is that the patient is an active tobacco smoker, and she has been strongly counseled on the importance of complete cessation and abstinence of tobacco. She is being discharged with nicotine replacement in the form of nicotine patches and nicotine lozenges. Additionally, the patient mentions to is that she has a scheduled pullingof 2 teeth this coming week. We discussed this and it was decided that it would be best for her to delay the these dental extractions by 2 weeks or so post-discharge. Because the patient did not receive a stent, she was not being discharged on Plavix, and from our point of view there is no current indication for her to be taking Plavix. The patient was cleared by our colleagues in Physical Therapy prior to discharge. Vital Signs at Discharge: BP: 119/55, Heart Rate: 57, Temp: 37.1 ??C (98.8 ??F), Resp: 20, BMI (Calculated): 18.99 Height: 152.4 cm (5') (12/13/18 1417) Weight: 42.4 kg (93 lb 7.6 oz) (12/15/18 0400) Functional and Cognitive Status: The patient's functional status is good, as is her cognitive status. Important Studies and Lab Data: Last 3 wbc, hgb, hct plt Recent Labs 12/15/18 0430 12/14/18 0325 WBC 9.1 9.6* HGB 12.7 11.6* HCT 39.4 36.0 PLATELET 248 246 Last 3 Lytes Recent Labs 12/15/18 0430 12/14/18 0325 NA 138 136 K 4.2 4.0 CL 102 103 CO2 28 24 BUN 8 6* CREATININE 0.57* 0.44* Last 3 LFTs Recent Labs 12/14/18 0325 AST 58* ALT 13 ALKPHOS 98 BILITOT 0.4 BILIDIR 0.1 Last Ca, Mg, Phos Recent Labs 12/15/18 0430 CALCIUM 8.7 Last 3 ProBNP, Trop, CK Recent Labs 12/14/18 1000 12/14/18 0325 12/13/18 1810 TROPONINT 2.58* 3.81* 6.77* Last 3 TFT Recent Labs 12/14/18 0325 TSH 2.76 Last 3 Lipids Recent Labs 12/14/18 0325 CHLPL 131 HDL 56 LDLCHOL 45 TRIG 148 Last 3 HgbA1C Recent Labs 12/14/18 0325 HA1C 5.5 Studies: EKG-?? At [facility] in NSR with ST elevations in inferior and anterolateral leads ?? Post-cathode builder EKG with NSR and no ST elevations ?? [facility] (12/13/2018): Hemodynamics: ?Left Heart Pressures ?Resting: ?Syst Diast ?EDP ?a ?v ?m ?Ao 123 ?58 ?86 ?LV 125 ?12 ? Coronary Angiography: ?Dominance: Left ?Left Main ?The left main was normal, free of disease. ?Left Anterior Descending ?There was mild diffuse (<=25% stenosis) disease of the entire vessel ?segment of the left anterior descending artery (LAD). ??The LAD was ?large. ?Left Circumflex ?There was a 30% hazy single discrete stenosis of the ostial segment ?of the left posterior descending branch (LPDA) of the left ?circumflex (LCX). ??The LPDA was moderate in size. ?Right Coronary Artery ?The right coronary artery (RCA) was normal, free of disease. ? Vascular Access: ?Vascular Access Management: ?Mechanical Compression of the right radial artery access site was ?performed. ? Conclusions: ?* Nonobstructive coronary artery disease? TTE (12/13/18): SUMMARY: 1. The left ventricular chamber size is normal. Basal septal hypertrophy is observed. There is no evidence of LVOT obstruction. Global left ventricular systolic function is mildly reduced. The quantitative left ventricular ejection fraction by biplane Leach's method is 49%. The mid anteroseptal, apical septal, apical anterior, apical lateral, and apical inferior wall segments are akinetic (score 3). The mid anterior, mid anterolateral, mid inferior, and ??mid inferoseptal wall segments are hypokinetic (score 2). The left ventricular diastolic filling pattern is consistent with impaired LV relaxation. Doppler assessment is consistent with normal left sided filling pressure. 2. The left atrium is normal in size. 3. The right ventricle is normal in size. Right ventricular global systolic function is normal. The apex of the right ventricle appears akinetic. 4. There is no hemodynamically significant valve disease. 5. A trivial pericardial effusion is visualized. Pending Studies and Lab Data: None Discharge Conditions/Prognosis: good Discharge to: home Updated Allergies/ADRs: No Known Allergies Immunizations Given this Hospitalization: There is no immunization history on file for this patient. Discharge Medications: Your Medications New Medications Dose Details acetaminophen 325 mg Tab Commonly known as: TYLENOL Take 2 tablets by mouth every 4 hours as needed. 650 mg Quantity: 30 tablet Refills: 1 aspirin 81 mg Tbec Take 1 tablet by mouth daily. Start taking on: December 16, 2018 81 mg Quantity: 30 tablet Refills: 3 atorvastatin 80 mg Tab Commonly known as: LIPITOR Take 1 tablet by mouth every evening. 80 mg Quantity: 90 tablet Refills: 3 lisinopril 2.5 mg Tab Commonly known as: PRINIVIL;ZESTRIL Take 1 tablet by mouth daily. Start taking on: December 16, 2018 2.5 mg Quantity: 90 tablet Refills: 3 magnesium oxide 400 mg (241.3 mg magnesium) Tab Commonly known as: MAG-OX Take 1 tablet by mouth 2 times daily. 400 mg Quantity: 30 tablet Refills: 12 metoprolol succinate 100 mg Tablet sr Commonly known as: TOPROL-XL Take 1 tablet by mouth daily. 100 mg Quantity: 30 tablet Refills: 3 nicotine 14 mg/24 hr Pt24 Commonly known as: NICODERM CQ Place 1 patch onto the skin daily. 1 patch Quantity: 28 patch Refills: 3 nicotine polacrilex 4 mg Lozg Commonly known as: COMMIT Place 1 lozenge inside cheek every hour as needed for Smoking cessation. 4 mg Quantity: 100 tablet Refills: 3 nitroGLYcerin 0.4 mg Subl Commonly known as: NITROSTAT Place 1 tablet under the tongue every 5 minutes as needed for Chest pain. 0.4 mg Quantity: 90 tablet Refills: 12 Continued medications, unchanged Dose Details PREMARIN 0.625 mg/gram Crea Taper/Titrate, VagTaper/Titrate, Vag. Take 0.625MG/1G Once daily for 7 Days.Take 0.3125MG/0.5G twice a week for 3 Weeks. Generic drug: estrogens (conjugated) Refills: 0 SYNTHROID ORAL Refills: 0 STOPPED Medications ZOCOR 20 mg Tab Generic drug: simvastatin Smoking Status at Discharge: Social History Tobacco Use Smoking Status Not on file Instructions Given to Patient at Discharge: Patient Instructions Instructions on Discharge to Home Why you were hospitalized: You were hospitalized because, most likely, there was an obstruction in 1 of the arteries that supplies blood to your heart. This is commonly referred to as a heart attack, or more formally as a myocardial infarction. On the way to [facility], you received a therapy that asked to break up clots, and we suspect that this got rid of the clot that had formed in 1 of those arteries, because when we looked directly at the arteries here at [facility], we could not identify any blockages. Call your doctor or seek medical attention if you develop the following - fever, chills, worsening weakness, chest pain, shortness of breath, cough, weakness in an arm or leg Activity level -take it easy the first week following her discharge from the hospital Diet - no change in previous diet, but a diet with plenty of vegetables and low in fat is recommended Driving - as before hospitalization Shower/Bath - permitted Wound Care - none Home Oxygen therapy - none Changes in Your Medications: New Medications: aspirin 81mg once a day atorvastatin 80mg once a day lisinopril 2.5mg once a day magnesium oxide 400 mg twice a day metoprolol succinate 100mg once a day nitroglycerin 0.4mg, 1 tablet under the tongue every 5 minutes for chest pain Medication dose changes: N/A Stop these medications: Simvastatin (you are now on a stronger statin called atorvastatin) Follow-up: Follow-up with your primary care provider and with a hyperion administrator will be arranged. Your Inpatient Doctor: Neo Guallpa MD Your Primary Care Provider: Aislinn William, BANK TELLER MACHINE MECHANIC [phone] For questions regarding this document or issues relating to this hospitalization on the Medical Service, please contact your inpatient physician through the [facility] Parks Recreation Director . Issues afterhours and on weekends will be handled by the Hospitalist staff on-call. General Instructions None Future Appointments and Orders Future Orders Complete By Expires Referral to Cardiac Rehab [[id number] Custom] As directed Process Instructions: If no progress note charted, please enter Clinical details in comments. Scheduling Instructions: Questions: My question or request is: STEMI. Cardiac rehab at [facility] Discharge References/Attachments Smoking: Stopping (Ecuadorean) Heart Attack: Myocardial Infarction or Acute Coronary Syndrome (Ecuadorean) documented in this encounter Discharge Instructions * Patient Instructions* Chuy Feng MD - 12/15/2018 2:08 PM EDT Instructions on Discharge to Home Why you were hospitalized: You were hospitalized because, most likely, there was an obstruction in 1 of the arteries that supplies blood to your heart. This is commonly referred to as a heart attack, or more formally as a myocardial infarction. On the way to [facility], you received a therapy that asked to break up clots, and we suspect that this got rid of the clot that had formed in 1 of those arteries, because when we looked directly at the arteries here at [facility], we could not identify any blockages. Call your doctor or seek medical attention if you develop the following - fever, chills, worsening weakness, chest pain, shortness of breath, cough, weakness in an arm or leg Activity level -take it easy the first week following her discharge from the hospital Diet - no change in previous diet, but a diet with plenty of vegetables and low in fat is recommended Driving - as before hospitalization Shower/Bath - permitted Wound Care - none Home Oxygen therapy - none Changes in Your Medications: New Medications: aspirin 81mg once a day atorvastatin 80mg once a day lisinopril 2.5mg once a day magnesium oxide 400 mg twice a day metoprolol succinate 100mg once a day nitroglycerin 0.4mg, 1 tablet under the tongue every 5 minutes for chest pain Medication dose changes: N/A Stop these medications: Simvastatin (you are now on a stronger statin called atorvastatin) Follow-up: Follow-up with your primary care provider and with a hyperion administrator will be arranged. Your Inpatient Doctor: Neo Guallpa MD Your Primary Care Provider: Aislinn William, BANK TELL[employer] MACHINE MECHANIC [phone] For questions regarding this document or issues relating to this hospitalization on the Medical Service, please contact your inpatient physician through the [facility] Parks Recreation Director . Issues afterhours and on weekends will be handled by the Hospitalist staff on-call. * Attachments The following attachments cannot be sent through Care Everywhere. * Smoking: Stopping (Ecuadorean) * Heart Attack: Myocardial Infarction or Acute Coronary Syndrome (Ecuadorean) * Cardiac Rehabilitation (Ecuadorean) documented in this encounter Medications at Time of Discharge Medication Sig Dispensed Refills Start Date End Date aspirin 81 mg Tablet, Delayed Release (E.C.) Take 1 tablet by mouth daily. 30 tablet 3 12/16/2018 atorvastatin (LIPITOR) 80 mg Tablet Take 1 tablet by mouth every evening. 90 tablet 3 12/15/2018 lisinopril (PRINIVIL;ZESTRIL) 2.5 mg Tablet Take 1 tablet by mouth daily. 90 tablet 3 12/16/2018 magnesium oxide (MAG-OX) 400 mg (241.3 mg magnesium) Tablet Take 1 tablet by mouth 2 times daily. 30 tablet 12 12/15/2018 nicotine polacrilex (COMMIT) [address] 1 lozenge inside cheek every hour as needed for Smoking cessation. 100 tablet 3 12/15/2018 nitroGLYcerin (NITROSTAT) 0.4 mg Tablet, Sublingual Place 1 tablet under the tongue every 5 minutes as needed for Chest pain. 90 tablet 12 12/15/2018 nicotine (NICODERM CQ) 14 mg/24 [address] 1 patch onto the skin daily. 28 patch 3 12/15/2018 acetaminophen (TYLENOL) 325 mg Tablet Take 2 tablets by mouth every 4 hours as needed. 30 tablet 1 12/15/2018 metoprolol succinate (TOPROL-XL) 100 mg Tablet Sustained Release 24 hr Take 1 tablet by mouth daily. 30 tablet 3 12/15/2018 LEVOTHYROXINE SODIUM (SYNTHROID ORAL) 05/03/2005 estrogens, conjugated, (PREMARIN) vaginal cream Taper/Titrate, VagTaper/Titrate, Vag. Take 0.625MG/1G Once daily for 7 Days.Take 0.3125MG/0.5G twice a week for 3 Weeks. 05/03/2005 simvastatin (ZOCOR) 40 mg Tablet Take 1 tablet by mouth nightly. 3 11/23/2018 01/15/2019 documented as of this encounter Progress Notes * Tarik Pelletier RN - 12/15/2018 3:46 PM EDT OUTCOME EVALUATION NOTE: Pt was able to walk around the department three times for a total of 480 feet and walked up and down a flight of stairs. Pt felt a little nauseated which is now resolved. Denied any chest pain or newSOB. Pt was given discharge instructions and she verbalized understanding. At this time she is symptom free and is waiting for her to come pick her up. * Neo Mcmanus MD - 12/15/2018 10:32 AM EDT Inpatient Cardiology Progress Note Patient Name: Estelle Ramirez Date of Admission: 12/13/2018 ( Hospital Day 2 days ) Service: Cardiology S1 ID: Ms. Estelle Ramirez is a 78-year-old female with a history of HLD, HTN, hypothyroidism, and active tobacco use who presents to [facility] via [facility] as transfer from [facility] s/p lytic therapy for chest pain found to have anterolateral and inferior lead ST elevation, with non-obstructive coronary angiography here. Active Problems: Active Hospital Problems Diagnosis ??? STEMI (ST elevation myocardial infarction) ??? Hyperlipidemia ??? Hypertension ??? Hypothyroidism ??? History of tobacco use Resolved Hospital Problems No resolved problems to display. 24 hr events: -No acute events overnight ROS: Denies chest pain, chest tightness, dyspnea, cough, lightheadedness, dizziness, fever, chills, or pain in extremities. Meds: Continuous Infusions: Scheduled Meds: ??? magnesium oxide 400 mg Oral BID ??? metoprolol tartrate 25 mg Oral Q6H NELLY ??? sodium chloride 0.9 % (flush) 5 mL Intravenous BID ??? nicotine 1 patch Transdermal Daily And ??? Patch Verification 1 patch Transdermal BID And ??? nicotine 1 patch Transdermal Daily ??? lisinopril 2.5 mg Oral Daily ??? atorvastatin 80 mg Oral QPM ??? aspirin 81 mg Oral Daily ??? enoxaparin 30 mg Subcutaneous Nightly ??? levothyroxine 88 mcg Oral QAM PRN Meds:.sodium chloride 0.9 % (flush), lidocaine, nitroGLYcerin, acetaminophen, nicotine polacrilex, nicotine polacrilex Physical Exam: Last value Range last 24 hrs Temperature Temp: 37.1 ??C (98.8 ??F) Temp: [36.5 ??C (97.7 ??F)-37.1 ??C (98.8 ??F)] Heart Rate Heart Rate: 59 Heart Rate: [58-70] Blood Pressure BP: 103/57 BP: (103-144)/(53-107) Respiratory Rate Resp: 21 Resp: [17-22] SpO2 SpO2: 95 % SpO2: [95 %-99 %] Intake/Output Summary (Last 24 hours) at 12/15/2018 1032 Last data filed at 12/15/2018 0900 Gross per 24 hour Intake 940 ml Output 1650 ml Net -710 ml cumulative I/O's since admission: -789mL Patient Vitals for the past 168 hrs: Weight 12/15/18 0400 42.4 kg (93 lb 7.6 oz) 12/14/18 0649 44 kg (97 lb) 12/13/18 1417 44.1 kg (97 lb 3.6 oz) Admit wt: 44.1kg General: Comfortable-appearing female who appears her stated age and is in no acute distress. ?? HEENT: Normocephalic and atraumatic. Mucosal membranes are moist. ?? Cardiovascular: Regular rate and rhythm, without gallops, rubs, or murmurs. ?? Respiratory: Lungs clear to auscultation bilaterally. ?? Abdomen: Normoactive bowel sounds present. Soft, non-tender, and non-distended. ?? Extremities: Warm and well-perfused. No cyanosis or peripheral edema. ?? Integument: Skin is warm and dry. There is a lentigo patch on the right baptism. The cath site in the right radial artery is without erythema or purulence; there is no palpable hematoma or auscultatedbruit at the site. ?? Neurological: Awake, alert, and oriented x4. No focal deficits. Labs Recent Labs 12/15/18 0430 12/14/18 0325 WBC 9.1 9.6* HGB 12.7 11.6* HCT 39.4 36.0 PLATELET 248 246 Recent Labs 12/15/18 0430 12/14/18 0325 NA 138 136 K 4.2 4.0 CL 102 103 CO2 28 24 BUN 8 6* CREATININE 0.57* 0.44* Recent Labs 12/14/18 0325 AST 58* ALT 13 ALKPHOS 98 BILITOT 0.4 BILIDIR 0.1 Recent Labs 12/15/18 0430 12/14/18 0325 CALCIUM 8.7 8.3* MAGNESIUM 0.93 0.74 No results for input(s): INR, PT, PTT in the last 168 hours. Recent Labs 12/14/18 1000 12/14/18 0325 12/13/18 1810 TROPONINT 2.58* 3.81* 6.77* No results for input(s): POCGLU in the last 168 hours. Diagnostic Studies: EKG- At [facility] in NSR with ST elevations in inferior and anterolateral leads ?? Post-cathode builder EKG with NSR and no ST elevations ?? [facility] (12/13/2018): Hemodynamics: ?Left Heart Pressures ?Resting: ?Syst Diast ?EDP ?a ?v ?m ?Ao 123 ?58 ?86 ?LV 125 ?12 ? Coronary Angiography: ?Dominance: Left ?Left Main ?The left main was normal, free of disease. ?Left Anterior Descending ?There was mild diffuse (<=25% stenosis) disease of the entire vessel ?segment of the left anterior descending artery (LAD). ??The LAD was ?large. ?Left Circumflex ?There was a 30% hazy single discrete stenosis of the ostial segment ?of the left posterior descending branch (LPDA) of the left ?circumflex (LCX). ??The LPDA was moderate in size. ?Right Coronary Artery ?The right coronary artery (RCA) was normal, free of disease. ? Vascular Access: ?Vascular Access Management: ?Mechanical Compression of the right radial artery access site was ?performed. ? Conclusions: ?* Nonobstructive coronary artery disease ? TTE (12/13/18): SUMMARY: 1. The left ventricular chamber size is normal. Basal septal hypertrophy is observed. There is no evidence of LVOT obstruction. Global left ventricular systolic function is mildly reduced. The quantitative left ventricular ejection fraction by biplane Leach's method is 49%. The mid anteroseptal, apical septal, apical anterior, apical lateral, and apical inferior wall segments are akinetic (score 3). The mid anterior, mid anterolateral, mid inferior, and mid inferoseptal wall segments are hypokinetic (score 2). The left ventricular diastolic filling pattern is consistent with impaired LV relaxation. Doppler assessment is consistent with normal left sided filling pressure. 2. The left atrium is normal in size. 3. The right ventricle is normal in size. Right ventricular global systolic function is normal. The apex of the right ventricle appears akinetic. 4. There is no hemodynamically significant valve disease. 5. A trivial pericardial effusion is visualized. ASSESSMENT: Ms. Estelle Ramirez is a 78-year-old female with a history of HLD, HTN, hypothyroidism, and tobaccowho presents to [facility] via [facility] as transfer from [facility] for substernal chest pain found to have anterolateral and inferior lead ST elevation. She received half-dose lytic therapy prior to arrival to [facility]. Coronary angiography showed no obstructive lesions, however. The story is very convincing formyocardial infarction without prodromal/preceding anginal symptoms, given the elevated troponins and EKG findings at [facility]. Our suspicion is that the lytic therapy en route to [facility] eliminated the coronary arterial lesion that caused this STEMI. Very low to negligible index of suspicion for pericarditis given lack of positional change in pain or worsening with breathing and TTE findings (only a trivial pericardial effusion). Post-AR TTE with LVEF of 49% with apical, anterior, and inferior akinetic wall segments, as well asimpaired LV relaxation. Patient is vitally stable and comfortable. Patient on appropriate post-AR medications, no plavix because no stent was placed. Will be discharging home today if she is able to ambulate safely in the unit. PLAN: #STEMI s/p half-dose lytic therapy and [facility] w/o obstructive findings #Hyperlipidemia -Continue: aspirin 81mg qd -Continue: atorvastatin 80mg qd -Continue: lisinopril 2.5mg qd -Continue: metoprolol tartrate 25mg q6h -TTE post-AR with LVEF of 49% with apical, anterior, and inferior akinetic wall segments, as well as impaired LV relaxation -Continuous telemetry ?? #Hypertension -lisinopril per above ?? #Hypothyroidism -Continue: levothyroxine 88mcg qd -TSH pending ?? #Tobacco use -Nicotine patch, gum, and lozenge PRN -Tobacco cessation counseling consult #Other: -DVT prophylaxis: enoxaparin -GI prophylaxis: none needed -Diet: [facility] -Code Status: FULL -Dispo: Discharge home today if able to ambulate safely It is a pleasure taking part in the care of this patient. Chuy Feng MD Internal Medicine PGY-1 Cardiology S1, Pager #[phone] 12/15/2018 CARDIOLOGY ATTENDING NOTE Patient seen and examined by me and discussed with SELAM Feng MD. Please see his note which summarizes our findings and plan. 78 yo female admitted in emergency transfer with STEMI following TNK. Cardiac cath showed mild diffuse calcific LAD disease without significant lesion. Agree with standard Post STEMI treatment plan ?? ASA only (without stent no p2y12 inhibitor indicated) ?? High Dose Statin ?? Beta Estuardo ?? ACEi ?? Cigarette Cessation Consult With uneventful cardiac walk agree with discharge to home . Neo Mcmanus M.D., F.A.CAlfredoC. crisis intervention specialist (Cardiology) Pager [phone] * Neo Mcmanus MD - 12/14/2018 4:23 PM EDT Inpatient Cardiology Progress Note Patient Name: Estelle Ramirez Date of Admission: 12/13/2018 ( Hospital Day 1 day ) Service: Cardiology S1 ID: Ms. Estelle Ramirez is a 78-year-old female with a history of HLD, HTN, hypothyroidism, and tobaccowho presents to [facility] via [facility] as transfer from [facility] s/p lytic therapy for chest pain found to haveanterolateral and inferior lead ST elevation, with non-obstructive LHC here. Active Problems: Active Hospital Problems Diagnosis ??? STEMI (ST elevation myocardial infarction) ??? Hyperlipidemia ??? Hypertension ??? Hypothyroidism ??? History of tobacco use Resolved Hospital Problems No resolved problems to display. 24 hr events: -No acute events overnight -Normal post-cath check ROS: Denies chest pain, chest tightness, dyspnea, cough, lightheadedness, dizziness, fever, chills, or pain in extremities. Meds: Continuous Infusions: Scheduled Meds: ??? magnesium oxide 400 mg Oral BID ??? metoprolol tartrate 25 mg Oral Q6H NELLY ??? sodium chloride 0.9 % (flush) 5 mL Intravenous BID ??? nicotine 1 patch Transdermal Daily And ??? Patch Verification 1 patch Transdermal BID And ??? nicotine 1 patch Transdermal Daily ??? lisinopril 2.5 mg Oral Daily ??? atorvastatin 80 mg Oral QPM ??? aspirin 81 mg Oral Daily ??? enoxaparin 30 mg Subcutaneous Nightly ??? levothyroxine 88 mcg Oral QAM PRN Meds:.sodium chloride 0.9 % (flush), lidocaine, nitroGLYcerin, acetaminophen, nicotine polacrilex, nicotine polacrilex Physical Exam: Last value Range last 24 hrs Temperature Temp: 37 ??C (98.6 ??F) Temp: [36.5 ??C (97.7 ??F)-37 ??C (98.6 ??F)] Heart Rate Heart Rate: 68 Heart Rate: [60-95] Blood Pressure BP: 111/62 BP: (109-144)/(54-74) Respiratory Rate Resp: 17 Resp: [12-25] SpO2 SpO2: 96 % SpO2: [93 %-99 %] Intake/Output Summary (Last 24 hours) at 12/14/2018 1751 Last data filed at 12/14/2018 1400 Gross per 24 hour Intake 662 ml Output 1175 ml Net -513 ml cumulative I/O's since admission: -289mL Patient Vitals for the past 168 hrs: Weight 12/14/18 0649 44 kg (97 lb) 12/13/18 1417 44.1 kg (97 lb 3.6 oz) Admit wt: 44.1kg General: Comfortable-appearing female who appears her stated age and is in no acute distress. ?? HEENT: Normocephalic and atraumatic. Mucosal membranes are moist. ?? Cardiovascular: Regular rate and rhythm, without gallops, rubs, or murmurs. ?? Respiratory: Lungs clear to auscultation bilaterally. ?? Abdomen: Normoactive bowel sounds present. Soft, non-tender, and non-distended. ?? Extremities: Warm and well-perfused. No cyanosis or peripheral edema. ?? Integument: Skin is warm and dry. There is a lentigo patch on the right baptism. The cath site in the right radial artery is without erythema or purulence; there is no palpable hematoma or auscultatedbruit at the site. ?? Neurological: Awake, alert, and oriented x4. No focal deficits. Labs Recent Labs 12/14/18324 WBC 9.6* HGB 11.6* HCT 36.0 PLATELET 246 Recent Labs 12/14/18324 NA 136 K 4.0 CL 103 CO2 24 BUN 6* CREATININE 0.44* Recent Labs 12/14/18324 AST 58* ALT 13 ALKPHOS 98 BILITOT 0.4 BILIDIR 0.1 Recent Labs 12/14/18324 CALCIUM 8.3* MAGNESIUM 0.74 No results for input(s): INR, PT, PTT in the last 168 hours. Recent Labs 12/14/18 1000 12/14/18 0325 12/13/18 1810 TROPONINT 2.58* 3.81* 6.77* No results for input(s): POCGLU in the last 168 hours. Diagnostic Studies: EKG- At [facility] in NSR with ST elevations in inferior and anterolateral leads ?? Post-cathode builder EKG with NSR and no ST elevations ?? LHC (12/13/2018): Hemodynamics: ?Left Heart Pressures ?Resting: ?Syst Diast ?EDP ?a ?v ?m ?Ao 123 ?58 ?86 ?LV 125 ?12 ? Coronary Angiography: ?Dominance: Left ?Left Main ?The left main was normal, free of disease. ?Left Anterior Descending ?There was mild diffuse (<=25% stenosis) disease of the entire vessel ?segment of the left anterior descending artery (LAD). ??The LAD was ?large. ?Left Circumflex ?There was a 30% hazy single discrete stenosis of the ostial segment ?of the left posterior descending branch (LPDA) of the left ?circumflex (LCX). ??The LPDA was moderate in size. ?Right Coronary Artery ?The right coronary artery (RCA) was normal, free of disease. ? Vascular Access: ?Vascular Access Management: ?Mechanical Compression of the right radial artery access site was ?performed. ? Conclusions: ?* Nonobstructive coronary artery disease ? TTE (12/13/18): SUMMARY: 1. The left ventricular chamber size is normal. Basal septal hypertrophy is observed. There is no evidence of LVOT obstruction. Global left ventricular systolic function is mildly reduced. The quantitative left ventricular ejection fraction by biplane Leach's method is 49%. The mid anteroseptal, apical septal, apical anterior, apical lateral, and apical inferior wall segments are akinetic (score 3). The mid anterior, mid anterolateral, mid inferior, and mid inferoseptal wall segments are hypokinetic (score 2). The left ventricular diastolic filling pattern is consistent with impaired LV relaxation. Doppler assessment is consistent with normal left sided filling pressure. 2. The left atrium is normal in size. 3. The right ventricle is normal in size. Right ventricular global systolic function is normal. The apex of the right ventricle appears akinetic. 4. There is no hemodynamically significant valve disease. 5. A trivial pericardial effusion is visualized. ASSESSMENT: Ms. Estelle Ramirez is a 78-year-old female with a history of HLD, HTN, hypothyroidism, and tobaccowho presents to [facility] via [facility] as transfer from [facility] for substernal chest pain found to have anterolateral and inferior lead ST elevation. She received half-dose lytic therapy prior to arrival to [facility]. LHC showed no obstructive lesions, however. The story is very convincing for myocardial infarction without prodromal/preceding anginal symptoms, [facility] Our suspicion is that the lytic therapy en route to [facility] eliminated the coronary arterial lesion that caused this STEMI. Very low index of suspicion for pericarditis given lack of positional change in pain or worsening with breathing. TTE yesterday showed LVEF of 49% with apical, anterior, and inferior akinetic wall segments, as well as impaired LV relaxation. Patient is vitally stable and comfortable. Had been having salvos of NSVT shortly following admission here but this has since abated. Stopping plavix given no stent placement. Increasing metoprolol to 25mg q6h. Plan to discharge home tomorrow. PLAN: #STEMI s/p half-dose lytic therapy and LHC w/o obstructive findings #Hyperlipidemia -Continue: aspirin 81mg qd -Continue: atorvastatin 80mg qd -Stop: clopidogrel -Continue: lisinopril 2.5mg qd -Changing metoprolol to 25mg q6h -TTE post-AR with LVEF of 49% with apical, anterior, and inferior akinetic wall segments, as well as impaired LV relaxation -Continuous telemetry ?? #Hypertension -lisinopril per above ?? #Hypothyroidism -Continue: levothyroxine 88mcg qd -TSH pending ?? #Tobacco use -Nicotine patch, gum, and lozenge PRN -Tobacco cessation counseling consult #Other: -DVT prophylaxis: enoxaparin -GI prophylaxis: none needed -Diet: [facility] -Code Status: FULL -Dispo: Likely discharge home tomorrow It is a pleasure taking part in the care of this patient. Chuy Feng MD Internal Medicine PGY-1 Cardiology S1, Pager #[phone] 12/14/2018 CARDIOLOGY ATTENDING NOTE Patient seen and examined by me and discussed with SELAM Feng MD. Please see his note which summarizes our findings and plan. HD2 for this 78 yo female admitted in emergency transfer with anterior STEMI s/p lytics. Emergent cath showed widely patent LAD with normal flow with mild calcific proximal disease. TTE consistent with mid LAD infarct. Though etiology is unclear his most likely reflect 'garden variety' CAD with lysis without a clear lesion. Plan is to treat using standard post STEMI Protocol. ?? ASA ?? High dose statine ?? Advance beta estuardo ?? Advance ACEi as tolerated Neo Mcmanus M.D., F.A.C.C. crisis intervention specialist (Cardiology) Pager [phone] * Walter Stanley MD - 12/13/2018 10:10 PM EDT Post-Catheterization Progress Note Subjective: Patient denies lightheadedness, dyspnea, chest pain, palpitations, abdominal pain, or back pain. Dressing clean and dry, no signs of infection, no bleeding from RRA access site. Objective: Vitals: Last value Range last 8 hrs Temperature Temp: 37 ??C (98.6 ??F) Temp: [37 ??C (98.6 ??F)-37.1 ??C (98.8 ??F)] Heart Rate Heart Rate: 69 Heart Rate: [55-95] Blood Pressure BP: 118/59 BP: (104-135)/(48-103) Respiratory Rate Resp: 14 Resp: [12-25] SpO2 SpO2: 97 % SpO2: [91 %-100 %] Gen: Laying in bed in NAD Ext: RRA access site without hematoma or ecchymosis. No active bleeding. Dressing c/d/i. No tenderness to palpation. Freight Rate Analyst strength 5/5 b/l and sensation intact. Abd: No Stratton's sign. Back: No flank or back tenderness. No retroperitoneal ecchymosis/ Wesley Sidhu's sign. A/P: S/p cardiac catheterization with benign appearing RRA access site. Walter Stanley MD * Mariann Rodriguez RN - 12/13/2018 7:14 PM EDT Pt arrived from [facility] at 1730. NS infusing through right IV. Large infiltration noted in right arm upon arrival. Infusion stopped and IV team notified - see note. TR band removed per protocol. NSR, BP stable, CP free. * Yenifer Grijalva RN - 12/13/2018 4:52 PM EDT Echo done at bedside documented in this encounter H&P Notes * Chuy Feng MD - 12/13/2018 5:55 PM EDT Images from the original note were not included. Cardiovascular Medicine Admission History and Physical Patient Name: Estelle Ramirez Service: Cardiology S1 Responsible Attending: Lary Willingham MD PCP: Barry Marrero MD PCP phone #: [phone] ID/Chief Complaint: Chest pain History of Present Illness: Ms. Estelle Ramirez is a 78-year-old female with a history of HLD, HTN, hypothyroidism, and active tobacco use who presents to [facility] via [facility] as transfer from [facility] for non-radiating chest pain found to have anterolateral and inferior lead ST elevation. She had been working around the house this morning (baking, dishes, etc) when she acutely developed pain across her chest. She describes the pain as a sharp, lingering pain that lasted for about 2 hours. The pain was not progressive; it started at about a 9/[address] it resolved. The pain did not radiate anywhere. There were no associated symptoms. The pain was not positionally dependent or worsened by breathing. She has never had any sort of pain or symptom like this before. She denies any recent development of dyspnea or orthopnea; she denies any recent URI symptoms. After having the pain for about 2 hours her husbandtook her to [facility]. At [facility], EKG showed ST elevations in the inferior and anterolateral leads, with troponin elevated at 0.61. She first presented to [facility] at 1230 and left [facility] via [facility] at 1345. Prior to arriving here per shereceived half-dose lytic therapy (per recommendation by operational meteorologist here), 75mg of clopidogrel, and 325mg of aspirin; she was also started on a heparin drip. Of note is that her chest pain abated fully shortly before leaving [facility]. OSH labs prior to transfer: Serum Cr: 0.64 Troponin: 0.61 Review of Systems: Review is positive for chest pain per HPI. Review is negative for dyspnea, cough, lightheadedness, dizziness, headache, vision changes, abdominal pain, nausea, vomiting, diarrhea, rashes, or pain in extremities. Problem List/Past Medical History Patient Active Problem List Diagnosis ??? STEMI (ST elevation myocardial infarction) ??? Hyperlipidemia ??? Hypertension ??? Hypothyroidism ??? History of tobacco use Meds: No current facility-administered medications on file prior to encounter. Current Outpatient Medications on File Prior to Encounter Medication Sig Dispense Refill ??? LEVOTHYROXINE SODIUM (SYNTHROID ORAL) ??? simvastatin (ZOCOR) 20 mg tablet ??? estrogens, conjugated, (PREMARIN) vaginal cream Taper/Titrate, VagTaper/Titrate, Vag. Take 0.625MG/1G Once daily for 7 Days.Take 0.3125MG/0.5G twice a week for 3 Weeks. Allergies: No known drug, food, or substance allergies. Family History: -Mother with CVA Social History: Patient lives in [place], [place] with her . Current smoker of 30 years, 1ppd. Started drinking alcohol when she was 19, nowadays drinks about 3 drinks weekly, but used to be a much heavier drinker in the past. No illicit/recreational drugs, or Rx/opioid abuse. 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 Vitals: Last value Range last 24 hrs Temperature Temp: 37.1 ??C (98.8 ??F) Temp: [37.1 ??C (98.8 ??F)] Heart Rate Heart Rate: 73 Heart Rate: [55-85] Blood Pressure BP: 121/55 BP: (104-123)/(48-103) Respiratory Rate Resp: 12 Resp: [12-19] SpO2 SpO2: 99 % SpO2: [91 %-100 %] Examination: General: Tired-appearing female who appears her stated age and is in no acute distress. HEENT: Normocephalic and atraumatic. PERRLA. Mucosal membranes are moist. There is scant dried blood on the lips. Neck: Supple and non-tender. No cervical or supraclavicular lymphadenopathy. No thyromegaly. Trachea is midline. Cardiovascular: Regular rate and rhythm, without gallops, rubs, or murmurs. Respiratory: Lungs clear to auscultation bilaterally. Abdomen: Normoactive bowel sounds present. Soft, non-tender, and non-distended. Extremities: Warm and well-perfused. Normal strength and ROM in all extremities. No cyanosis or peripheral edema. Integument: Skin is warm and dry. There is a lentigo patch on the right baptism. Neurological: Awake, alert, and oriented x4. Cranial nerves 2-12 are grossly intact bilaterally, except decreased hearing on the left side. Lines: Peripheral IV in left arm Laboratory: No resulted labs here at this time. CBC w/ diff, BMP, Mg, Lipids, A1c, and TSH pending for AM. Microbiology: None Diagnostic Studies: EKG- At [facility] in NSR with ST elevations in inferior and anterolateral leads Post-cathode builder EKG with NSR and no ST elevations LHC (12/13/2018): Hemodynamics: Left Heart Pressures Resting: Syst Diast EDP a v m Ao 123 58 86 LV 125 12 Coronary Angiography: Dominance: Left Left Main The left main was normal, free of disease. Left Anterior Descending There was mild diffuse (<=25% stenosis) disease of the entire vessel segment of the left anterior descending artery (LAD). The LAD was large. Left Circumflex There was a 30% hazy single discrete stenosis of the ostial segment of the left posterior descending branch (LPDA) of the left circumflex (LCX). The LPDA was moderate in size. Right Coronary Artery The right coronary artery (RCA) was normal, free of disease. Vascular Access: Vascular Access Management: Mechanical Compression of the right radial artery access site was performed. Conclusions: * Nonobstructive coronary artery disease ASSESSMENT: Ms. Estelle Ramirez is a 78-year-old female with a history of HLD, HTN, hypothyroidism, and tobaccowho presents to [facility] via [facility] as transfer from [facility] for substernal chest pain found to have anterolateral and inferior lead ST elevation. She received half-dose lytic therapy prior to arrival to [facility]. LHC showed no obstructive lesions, however. The story is very convincing for myocardial infarction without prodromal/preceding anginal symptoms, [facility] Our suspicion is that the lytic therapy en route to [facility] eliminated the coronary arterial lesion that caused this STEMI. Very low index of suspicion for pericarditis given lack of positional change in pain or worsening with breathing; TTE will help assess further though. Patient received 75mg clopidogrel en route and has been loaded with 300mg of clopidrogel post-[facility]. She was loaded with aspirin prior to arriving here, will start aspirin 81mg qd tomorrow. We will also start high-intensity statin, beta- blockade, and BOLIVAR-inhibitor. TTE conducted post-cathode builder, read pending. Will order repeat EKG for tomorrow. Ordering CBC w/ diff, BMP, Mag, Lipid panel, A1c, and TSH for AM labs. PLAN: Admit to Cardiology S1, Team Pager #[phone] #STEMI s/p half-dose lytic therapy and LHC w/o obstructive findings #Hyperlipidemia -Start tomorrow: aspirin 81mg qd -Start: atorvastatin 80mg qd -Start tomorrow: clopidogrel 75mg qd -Start: lisinopril 2.5mg qd -Start: metoprolol 12.5mg q6h -TTE conducted here post-cathode builder, read pending -EKG tomorrow -Continuous telemetry #Hypertension -lisinopril per above #Hypothyroidism -Start: levothyroxine 88mcg qd -TSH draw in AM tomorrow #Tobacco use -Nicotine patch, gum, and lozenge PRN #Other: -DVT prophylaxis: enoxaparin -GI prophylaxis: none needed -Diet: [facility] -Code Status: FULL -Dispo: TBD It is a pleasure taking part in the care of this patient. Chuy Feng MD Internal Medicine PGY-1 Cardiology S1, Pager #[phone] 12/13/2018 Associated attestation - Lary Willingham MD - 12/13/2018 7:41 PM EDT Images from the original note were not included. ATTENDING ATTESTATION: I met with the patient today and independently confirmed the history, physical exam, and reviewed the available test results. I have discussed the plan with the patient and have personally edited thedocument to reflect the plan of care. In summary, Ms. Ramirez presented with signs and symptoms consistent with anterior STEMI. She received half dose lytics and underwent emergent coronary angiography. This showed no acute culprit andno clear evidence of typical SCAD. She has been having salvos of NSVT. 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 Will manage medically and optimize hemodynamic. May need amiodarone. Remainder of plan as per Dr. Feng's note. Lary Willingham MD [facility] Interventional Cardiology Pager [phone] documented in this encounter Miscellaneous Notes * Plan of Care - Aaliyah Alvarado, PT - 12/15/2018 1:03 PM EDT Physical Therapy Evaluation Patient profile: Ms. Estelle Ramirez is a 78-year-old female with a history of HLD, HTN, hypothyroidism, and active tobacco use??who presents to [facility] via [facility] as transfer from [facility] s/p lytic therapyfor chest pain found to have anterolateral and inferior lead ST elevation, with non-obstructive coronary angiography here. ?? Patient with the following active problems: No past medical history on file. No past surgical history on file. Social History: Patient lives in a 2 story home with her , 2 small RENA with rails. Resides on the 1st level.She is independent at home, drives herself to appointments. can assist as needed. Precautions/Special Considerations: fall, tele, R radial cath site Mobility and Positioning Recommendations: ?? Please encourage up to chair for meal times as able. ?? Ambulate 3x/day with nsg, SBA. Subjective: ???I just walked and did stairs with nursing?? I did feel a little wobbly but maybe it's because I haven't been moving much Objective: Pg'd by team to see pt for home safety evaluation for d/c. Pain: 0/10 Vital Signs: stable Mental Status: alert, oriented to person, place, and time Skin: cath site CDI Musculoskeletal: ROM: WFL Strength: BLE grossly WFL. Sensation: WFL Bed Mobility: Supine to Sit: indep Sit to Supine: indep Transfers: Sit to Stand: indep, steady Stand to Sit: indep steady Gait: Distance: 185 Device used: None Level of assist: SBA to manage tele lines Gait mechanics: Steady, no LOB. Able to ambulate, change directions and brick picker objects off the ground without LOB. Denied pain, dizziness; c/o mild fatigue. Given pt's report of feeling weak, educated on benefits of a FWW however pt declined to use. Was educated to pace. Stairs: declined, as she just did several bouts with nsg. Per RN confirmed pt performed with SBA tomange lines. Balance: Sitting Static: good Sitting Dynamic: good Standing Static: good Standing Dynamic / Gait: Good - able to turn 360 x2 without LOB, pick object off of ground steadily, side-step L<>R, maneuver in busy environments without LOB Therex: educated to continue to ambulate with nsg and progress her mobility distances. Tinetti Balance Assessment Score: 26/28 Education: patient has been educated on Bed mobility, Transfers, Safety , Gait , Activity pacing/Energy conservation, Role of therapy, Balance and Discharge planning and verbalizes understanding. Patient status, treatment, and mobility recommendations discussed with nursing. Assessment: Estelle Ramirez was seen today for physical therapy evaluation. Presents primarily withdecreased functional endurance otherwise appears near her baseline function. She was able to ambulate long distances steadily without assistance. Scored a 26/28 on the Tinetti Balance Assessment indicating low risk of fall. Benefited from education regarding pacing with mobility and progressively increasing her mobility distances. Overall, anticipate no further inpatient PT needs. Recommend d/c to home with assist from her spouse when medically able. The pt would benefit from skilled therapy services while in the hospital to maximize functional abilities. Discharge Recommendations: Based on the current findings, Anticipated Discharge Disposition: (P) home with assist(assist from spouse, may benefit from cardiac rehab) when medically ready for hospital discharge. Consult Recommendations: No other consults recommended at this time. Equipment needs: No equipment necessary Plan: Therapy Frequency: (P) evaluation only. Patient/family understand and agree with plan as stated above. 2017 PT Evaluation Code Rationale: ?? Diagnosis & Pertinent Co-Morbidities, personal factors, and present illness affecting Plan of Care: (see above); Additional personal factors or co- morbidities that impact plan: ?? Total # of Factors: 0 1-2 3+ x ?? Examination of body system impairments, functional limitations and behaviors, and/or participation restrictions. Addressing 1-2 elements x Addressing 3 + elements Addressing 4 + elements ?? Clinical presentation: See assessment above. Stable/Uncomplicated Evolving/Fluctuating Symptoms Unstable/Unpredictable x ?? Clinical decision making of low complexity based on pt's functional performance as outlined in this evaluation. Time IN / OUT: 4168-9284 Total Evaluation Minutes, Physical Therapy: (P) 20(eval) Aaliyah Alvarado, PT, DPT Pager: [phone] Physical Therapy Inpatient Rehabilitation Department * Hospital Course - Norman Granados MD - 12/14/2018 6:45 PM EDT 12/13: New admission. Chest pain starting this morning. Received lytics at OSH. 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 Starting on home meds and all guideline directed medical therapy. * Care Management - Taiwo Caldwell RN - 12/14/2018 2:01 PM EDT Office of Care Management Initial Assessment Taiwo Caldwell, RN reviewed record and discussed patient with Care Team. Source of Information: patient Introduced self/reviewed role; services accepted. Reason for Hospitalization: Ms. Ramirez presented with signs and symptoms consistent with anterior STEMI. She received half dose lytics and underwent emergent coronary angiography. This showed no acute culprit and no clear evidence of typical SCAD. She has been having salvos of NSVT. 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 Will manage medically and optimize hemodynamic No past medical history on file. Hospitalizations Within the Past 30 Days: none Anticipated Length Of Stay (If known): 2-3 days Current Decision-Making Capacity: Patient is A and O x 3 Advance Care Planning: none, I gave her the paperwork Current Coping/Education/Information Needs: denies needs. Current Functional Ability: up with one /supervision Functional Status Prior to Admission: independent and still drives. Home Environment: Patient lives in a 2 story home with her . She is independent at home, drives herself to appointments. Her also drives. Social & Family Supports/Community Resources: her spouse [facility] History: denies Substance Use/Abuse: Patient is an active smoker. Health/Prescription Coverage: Primary Insurance: MEDICAID [place] Secondary Insurance: N/A Prescription Coverage: yes Preferred Pharmacy: [facility] [place], [place] Primary Care Provider: Aislinn HOLLAND Patient/Caregiver Goals of Treatment: to return home Potential Needs for Transition of Care: Rehab/SNF: n/a Home Health:n/a DME: n/a Dialysis: n/a Community Resources:n/a Transportation: spouse Addy Anticipated Barriers to Discharge/Special Considerations: none Assessment: Patient awake alert . Up in room. No needs. Plan: home when medically stable A member of the Care Management team will continue to monitor progress, follow for continuity of care and assist with transition of care planning. Taiwo Caldwell RN Pager: [phone] * Plan of Care - Jessica Garza PT - 12/14/2018 12:59 PM EDT PT Note Spoke with bedsides RNJoel. Per RN, pt without acute PT needs at this time. Pt up mobilizing withnursing. Pt will benefit from cardiac rehab upon d/c. If needs arise nurse to page. Jessica Garza PT Pager [phone] * Consult Note - Bronwyn Andrews RN - 12/14/2018 10:50 AM EDT Estelle Ramirez was seen today by Cardiac Rehabilitation for: STEMI Activity evaluation - Nursing reports she does not have any mobility concerns. Her nurse plans to ambulate with her afterIV infusion complete. Educational packet regarding CAD, cardiac risk factors, and managing angina given to the patient. Reviewed managing angina /use of sl nitroglycerin. Mediterranean diet guidelines briefly reviewed. Given parameters for home exercise. Patient states she is active at home working in her home and yard, but does not get regular sustained cardiovascular exercise. Participation in an outpatient cardiac rehabilitation program at [facility] was discussed. Patient agrees to a referral to this program. The referral will be sent at discharge and the patient should be contacted by the Program within 1- 2 weeks from discharge. * Plan of Care - Ericka Fernandez OT - 12/14/2018 10:14 AM EDT Occupational Therapy Note 12/14/18 1012 Rehab Evaluation Document Type contact Total Evaluation Minutes, Occupational Therapy 0 Evaluation Not Performed Comment Order received. PT checked in with nursing. NO acute OT/PT needs. PT to check in with cardiac rehab-? if Pt might be a candidate. Ericka Fernandez, MARIANAR Pager [phone] * Consult Note - Renetta Stoll RN - 12/13/2018 6:16 PM EDT Images from the original note were not included. Infiltration/Extravasation Scale Estelle Aggarwalgensen [id number] CV29/CV29-A Infiltration appearance: Infiltration harm % for this extremity 15% Based on measurement calculation (greatest measurement Xdivided by length of extremity multiplied by 100= %) Considerations and Rivera: Consider the following: If the percentage of limb affected is <5% then select 1 If the percentage of limb affected is 6-25% then select 2 If the percentage of limb affected is 26-49% then select 3 If the percentage of limb affected is > 50% then always select 4 2 Skin blanched Edema 1 to 6 inches (2.5 to 15 cm) in any direction Cool to touch With or without pain Infiltration appearance score: 2 Medication Name infiltrated is NS which is a (n) other Location of infiltration:right arm: anterior Measurement in cm of length and width of affected area---Affected extremity Measurement of Circumference in cm of Infiltrated area of affected extremity Measurement of Circumference in cm of Unaffected extremity (at same location as affected extremity) Pulses present on affected extremity yes Medicated treatment given per policy/ order: no treatment indicated 10cm X 23cm Right Left wrist 14 14 AC 23 19 6cm below AC 22 21 Plan for continued monitoring of infiltration/extravasation Name of MD contacted (team at bedside) 6:16 PM Name of RN contacted Fozia 6:16 PM Name of Pharmacist if consulted 6:16 PM Plastics Provider contacted: no 6:16 PM Name of Plastics MD (if consulted) MOTOR EQUIPMENT COMMANDING OFFICER CARING FOR THIS PATIENT WILL CONTINUE TO MONITOR AND WILL ASSUME CARE, VASCULAR ACCESS WILL NOT FOLLOW THIS EVENT AT THE SIGNING OF THIS NOTE. * Brief Op Note - Neo Mcmanus MD - 12/13/2018 3:26 PM EDT Brief Operative Note Patient Name: Estelle Ramirez : [id number] MR#: [id number] Case Date: 12/13/2018 Interventional Cardiologiesta: * Neo Mcmanus MD - Primary * Sotero Mora MD - Fellow Preoperative diagnosis: STEMI Postoperative diagnosis: STEMI without obstructive disease Preliminary Cardiac Catheterization Procedure Note: Procedure(s) performed: Coronary Angiography, Left Heart Cath Baseline Frailty Assessment: Definitions from [place] Study of Health and Aging Clinical Frailty Scale: 3: MANAGING WELL A time-out was conducted prior to the start of the procedure to verify the correct patient and procedure, procedure location, and all relevant critical information. Access: Right Radial: 6 FR Preliminary findings: Coronary Angiography: Anatomically normal left dominant circulation LMCA: Without angiographic apparent disease LAD: Mild diffuse disease throughout LCx: Minimal luminal irregularities noted RCA: Minimal luminal irregularities noted LVEDP 12 mmHg Contrast 90 ml Hemostasis: Right radial sheath was removed at case completion with hemostasis obtained with mechanical (TR Band) compression The patient tolerated the procedure well and was transferred from the cardiac catheterization lab to the CRU in stable condition without apparent complications. Full report to follow. NEO MCMANUS MD crisis intervention specialist Pager [phone] documented in this encounter Plan of Treatment Scheduled Referrals Name Type Priority Associated Diagnoses Orde r Schedule Referral to Cardiac Rehab Outpatient Referral Routine ST elevation myocardial infarction (STEMI), unspecified artery Ordered: 12/15/2018 documented as of this encounter Procedures Procedure Name Priority Date/Time Associated Diagnosis Comments EKG 12-LEAD Routine 12/15/2018 11:[address] elevation myocardial infarction (STEMI), unspecified artery BMP W/FASTING GLUCOSE Routine 12/15/2018 4:30 AM EDT HEMOGRAM Routine 12/15/2018 4:30 AM EDT DIFFERENTIAL, AUTOMATED Routine 12/16/19 19 4:30 AM EDT HC CBC,PLT & AUTO DIFF Routine 9 4:30 AM EDT HC MAGNESIUM, SERUM Routine 12/15/2018 4 :30 AM EDT HC TROPONIN T STAT 12/14/2018 10:00 AM EDT EKG 12-LEAD Routine 12/14/2018 8:[address] elevation myocardial infarction (STEMI), unspecified artery BMP W/FASTING GLUCOSE Routine 12/14/2018 3:25 AM EDT HEMOGRAM Routine 12/14/2018 3:25 AM EDT DIFFERENTIAL, AUTOMATED Routine 12/15/19 19 3:25 AM EDT HC CBC,PLT & AUTO DIFF Routine 9 3:25 AM EDT TROPONIN Routine 12/14/2018 3:25 AM EDT HC THYROID STIMULATING HORMONE, SERUM Routine 12/14/2018 3:25 AM EDT HC MAGNESIUM, SERUM Routine 12/14/2018 3 :25 AM EDT HC HEMOGLOBIN A1C Routine 12/14/2018 3:2 5 AM EDT HEPATIC FUNCTION PANEL Routine 9 3:25 AM EDT LIPID PANEL (REFLEX DIRECT LDL) Routine 12/14/2018 3:25 AM EDT HC TROPONIN T STAT 12/13/2018 6:10 PM EDT EKG 12-LEAD Routine 12/13/2018 5:[address] elevation myocardial infarction (STEMI), unspecified artery ECHO COMPLETE W CONTRAST Routine 12/13/2018 5:[address] elevation myocardial infarction involving left anterior descending (LAD) coronary artery CARDIAC CATHETERIZATION Routine 12/14/19 19 3:31 PM EDT documented in this encounter Results * EKG 12 Lead (12/15/2018 11:11 AM EDT) Ventricular rate 60 BPM MUSE SYSTEM Atrial Rate 60 BPM MUSE SYSTEM P-R Interval 174 ms MUSE SYSTEM QRS Duration 70 ms MUSE SYSTEM Q-T Interval 502 ms MUSE SYSTEM QTC Calculated (Bezet) 502 ms MUSE SYSTEM Calculated P [place] 53 degrees MUSE SYSTEM Calculated R [place] -34 degrees MUSE SYSTEM Calculated T [place] 170 degrees MUSE SYSTEM INTERPRETATION Normal sinus rhythm Left axis deviation Low voltage QRS Inferior infarct (cited on or before 13-DEC-2018) Cannot rule out Anteroseptal infarct (cited on or before 13-DEC-2018) T wave abnormality, consider lateral ischemia Abnormal ECG When compared with ECG of 14-DEC-2018 08:16, (unconfirmed) No significant change was found Confirmed by MD MCMANUS AARON ([id number]) on 12/15/2018 4:04:05 PM MUSE SYSTEM 12/15/2018 11:1 1 AM EDT 12/15/2018 4:04 PM EDT Neo Guallpa MD ECG ORDERABLES MUSE SYSTEM * (ABNORMAL) Differential, Automated (12/15/2018 4:30 AM EDT) Pathologist [facility] Neutrophil % 54.8 % [facility] Neutrophil Absolute 4.97 1.70 - 6.10 x10(3)/mc L [facility] Lymph % 28.2 % [facility] Lymphocytes Abs 2.6 0.9 - 3.2 x10(3)/ L [facility] Monocyte % 14.5 % [facility] Monocyte Abs 1.3(H) 0.3 - 0.9 x10(3)/mc L [facility] Eos % 1.7 % [facility] Eosinophils Abs 0.2 0.0 - 0.4 x10(3)/[facility] Basophil % 0.4 % [facility] Baso Absolute 0.0 0.0 - 0.1 x10(3)/[facility] Immature Gran % 0.40 % [facility] Comment: Immature granulocytes(IG's)percentage and absolute count will include metamyelocytes, myelocytes, and promyelocytes. Blood smears from CBCs yielding IG's will be scanned manually for concordance. If this scan disagrees with the automated IG or if promyelocytes are noted, a manual differential will be performed. Immature Gran Absolute 0.04 0.00 - 0.04 x10(3)/[facility] Blood specimen (specimen) 12/15/2018 4:30 AM EDT 12/15/2018 5:00 AM EDT Narrative Resulting Agency Comment Spec In Lab Norman Granados MD HEMATOLOGY ORDERABLE S [facility] [place] [address] * (ABNORMAL) Hemogram (12/15/2018 4:30 AM EDT) White Blood Cell 9.1 4.0 - 9.5 x10(3)/ L [facility] Red Blood Cell 4.25 4.00 - 5.21 x10(6)/ L [facility] Hemoglobin 12.7 11.7 - 15.5 gm/dL [facility] Hematocrit 39.4 35.7 - 45.8 % [facility] Mean Cell Volume 92.7 82.6 - 94.4 fL [facility] Mean Cell Hemoglobin 29.9 27.1 - 32.0 pg [facility] Mean Cell Hemoglobin Concentration 32.2 31.7 - 35.0 gm/dL [facility] Platelet 248 145 - 357 x10(3)/mc L [facility] RDW Standard Deviation 49.1(H) 37.0 - 46.0 fL [facility] RDW coefficient of variation 14.4(H) 11.5 - 14.1 % [facility] Mean Platelet Volume 10.7 7.6 - 12.9 fL [facility] NRBC% auto 0.0 % [facility] NRBC Absolute 0.000 0.000 - 0.000 x10(3)/mc L [facility] Blood specimen (specimen) 12/15/2018 4:30 AM EDT 12/15/2018 5:00 AM EDT Narrative Resulting Agency Comment Spec In Lab Norman Granados MD HEMATOLOGY ORDERABLE S Performing Organization Address City/[facility]/ZIP Co de Phone Number [facility] [place] [address] * Magnesium (12/15/2018 4:30 AM EDT) Magnesium 0.93 0.69 - 1.07 mmol/L [facility] Blood specimen (specimen) 12/15/2018 4:30 AM EDT 12/15/2018 5:00 AM EDT Narrative Resulting Agency Comment Spec In Lab Neo Guallpa MD CHEMISTRY ORDERABLES Performing Organization Address City/[facility]/ZIP Co de Phone Number [facility] [place] [address] * (ABNORMAL) BMP w/fasting Glucose (12/15/2018 4:30 AM EDT) Glucose Fasting 105(H) 65 - 99 mg/dL [facility] Comment: ?Fasting* Glucose Interpretive Criteria Normal ?65-99 mg/dL Impaired Fasting glucose ?100-125 mg/dL Consistent with Diabetes Mellitus ? >or= 126 mg/dL *Fasting is defined as no caloric intake for at least 8 hours In the absence of unequivocal hyperglycemia a plasma glucose value of >or= 126 mg/dL should be repeated on a subsequent day. Diagnosis and Classification of Diabetes Mellitus, Position Statement from the [place] [employer]. ??Diabetes Care, Volume 33, Supplement 1, Apr 2009 Blood Urea Nitrogen 8 8 - 18 mg/dL [facility] Creatinine 0.57(L) 0.70 - 1.20 mg/dL [facility] Sodium 138 135 - 145 mmol/L [facility] Potassium 4.2 3.5 - 5.0 mmol/L [facility] Comment: Please note: ??Patients with WBC >100,000 may have falsely elevated Potassium levels. ??For accurate Potassium quantification in these patients send serum separator tube (gold top) for subsequent determinations. ??Contact the Clinical Chemistry Laboratory if there are any questions. Chloride 102 98 - 107 mmol/L [facility] Carbon Dioxide 28 22 - 31 mmol/L [facility] Anion Gap 8 5 - 15 mmol/L [facility] Calcium 8.7 8.5 - 10.5 mg/dL [facility] Est Glomerular Filtration Rate 89 >=60 mL/min/1. 73 m?? [facility] Comment: The eGFR was calculated using the CKD-EPI equation. As with all creatinine based estimates of kidney function, eGFR values calculated with the CKD-EPI equation are not accurate in patients with acute kidney failure, extremes of body mass or the acutely ill. http://[employer]/DHMCnkf eGFR 104 >=60 mL/min/1. 73 m?? [facility] Comment: The eGFR was calculated using the CKD-EPI equation. As with all creatinine based estimates of kidney function, eGFR values calculated with the CKD-EPI equation are not accurate in patients with acute kidney failure, extremes of body mass or the acutely ill. http://[employer]/DHMCnkf Blood specimen (specimen) 12/15/2018 4:30 AM EDT 12/15/2018 5:00 AM EDT Narrative Resulting Agency Comment Spec In Lab Neo Guallpa MD CHEMISTRY ORDERABLES [facility] [place] [address] * (ABNORMAL) Troponin (12/14/2018 10:00 AM EDT) Troponin-T 2.58(H) 0.00 - 0.00 ng/mL [facility] Comment: The 99th percentile for Troponin T is less than 0.01 ng/mL, any detectable cTnT concentration using this assay should be considered elevated. According to the third universal definition of myocardial infarction the following criteria with a clinical presentation consistent with acute myocardial ischemia meets the diagnosis for a myocardial infarction (AR). Detection of a rise and/or fall of cTnT, with at least one value greater than the 99th percentile (> or = 0.01) and with at least one of the following ?? Symptoms of ischemia ?? New or presumed new significant KI-omdzfhe-F wave (ST-T) changes or new left bundle branch block (LBBB) ?? Development of pathologic Q waves in the ECG ?? Imaging evidence of new loss of viable myocardium or new regional wall motion abnormality ?? Identification of an intracoronary thrombus by angiography or autopsy Samples for cTnT testing should be obtained serially upon first assessment and again 3 to 6 hours later. If the clinical suspicion is high and previous samples have been negative an additional sample may be indicated. Reference: Third Patterson Definition of Myocardial Infarction. Journal of the [place] [employer] 2012;60:1581-98 Blood specimen (specimen) 12/14/2018 10:00 AM EDT 12/14/2018 10:19 AM EDT Narrative Resulting Agency Comment Spec In Lab Lary Willingham MD CHEMISTRY ORDERABLES Performing Organization Address City/[facility]/ZIP Co de Phone Number [facility] [place] [address] * EKG 12 Lead (12/14/2018 8:16 AM EDT) Ventricular rate 63 BPM MUSE SYSTEM Atrial Rate 63 BPM MUSE SYSTEM P-R Interval 186 ms MUSE SYSTEM QRS Duration 68 ms MUSE SYSTEM Q-T Interval 450 ms MUSE SYSTEM QTC Calculated (Bezet) 460 ms MUSE SYSTEM Calculated P [place] 69 degrees MUSE SYSTEM Calculated R [place] -30 degrees MUSE SYSTEM Calculated T [place] 125 degrees MUSE SYSTEM INTERPRETATION Normal sinus rhythm Left axis deviation Low voltage QRS Inferior infarct (cited on or before 13-DEC-2018) Anteroseptal infarct (cited on or before 13-DEC-2018) T wave abnormality, consider lateral ischemia Abnormal ECG When compared with ECG of 13-DEC-2018 17:41, T wave inversion now evident in Anterior leads Confirmed by Christopher Cooney MD ([id number]) on 12/17/2018 2:37:37 PM MUSE SYSTEM 12/14/2018 8:16 AM EDT 12/17/2018 2:37 PM EDT Neo Guallpa MD ECG ORDERABLES Performing Organization Address [facility] Co de Phone Number MUSE SYSTEM * (ABNORMAL) Troponin (12/14/2018 3:25 AM EDT) Troponin-T 3.81(H) 0.00 - 0.00 ng/mL [facility] Comment: result rechecked- The 99th percentile for Troponin T is less than 0.01 ng/mL, any detectable cTnT concentration using this assay should be considered elevated. According to the third universal definition of myocardial infarction the following criteria with a clinical presentation consistent with acute myocardial ischemia meets the diagnosis for a myocardial infarction (AR). Detection of a rise and/or fall of cTnT, with at least one value greater than the 99th percentile (> or = 0.01) and with at least one of the following ?? Symptoms of ischemia ?? New or presumed new significant SD-odhsxuf-N wave (ST-T) changes or new left bundle branch block (LBBB) ?? Development of pathologic Q waves in the ECG ?? Imaging evidence of new loss of viable myocardium or new regional wall motion abnormality ?? Identification of an intracoronary thrombus by angiography or autopsy Samples for cTnT testing should be obtained serially upon first assessment and again 3 to 6 hours later. If the clinical suspicion is high and previous samples have been negative an additional sample may be indicated. Reference: Third Patterson Definition of Myocardial Infarction. Journal of the [employer] 2012;60:1581-98 Blood specimen (specimen) Venous Draw / Unknown 12/14/2018 3:25 AM EDT 12/14/2018 3:35 AM EDT Narrative Resulting Agency Comment Spec In Lab Norman Granados MD CHEMISTRY ORDERABLES [facility] [place] [address] * (ABNORMAL) Differential, Automated (12/14/2018 3:25 AM EDT) Neutrophil % 63.6 % [facility] Neutrophil Absolute 6.10 1.70 - 6.10 x10(3)/mc L [facility] Lymph % 22.1 % [facility] Lymphocytes Abs 2.1 0.9 - 3.2 x10(3)/mc L [facility] Monocyte % 12.5 % [facility] Monocyte Abs 1.2(H) 0.3 - 0.9 x10(3)/mc L [facility] Eos % 0.9 % [facility] Eosinophils Abs 0.1 0.0 - 0.4 x10(3)/mc L [facility] Basophil % 0.5 % [facility] [facility] Baso Absolute 0.0 0.0 - 0.1 x10(3)/mc L [facility] Immature Gran % 0.40 % [facility] Comment: Immature granulocytes(IG's)percentage and absolute count will include metamyelocytes, myelocytes, and promyelocytes. Blood smears from CBCs yielding IG's will be scanned manually for concordance. If this scan disagrees with the automated IG or if promyelocytes are noted, a manual differential will be performed. Immature Gran Absolute 0.04 0.00 - 0.04 x10(3)/mc L [facility] Blood specimen (specimen) 12/14/2018 3:25 AM EDT 12/14/2018 3:35 AM EDT Narrative Resulting Agency Comment Spec In Lab Norman Granados MD HEMATOLOGY ORDERABLE S [facility] [place] [address] * (ABNORMAL) Hemogram (12/14/2018 3:25 AM EDT) White Blood Cell 9.6(H) 4.0 - 9.5 x10(3)/mc L [facility] Red Blood Cell 3.84(L) 4.00 - 5.21 x10(6)/mc L [facility] Hemoglobin 11.6(L) 11.7 - 15.5 gm/dL [facility] Hematocrit 36.0 35.7 - 45.8 % [facility] Mean Cell Volume 93.8 82.6 - 94.4 fL [facility] Mean Cell Hemoglobin 30.2 27.1 - 32.0 pg [facility] Mean Cell Hemoglobin Concentration 32.2 31.7 - 35.0 gm/dL [facility] Platelet 246 145 - 357 x10(3)/mc L [facility] RDW Standard Deviation 50.0(H) 37.0 - 46.0 fL [facility] RDW coefficient of variation 14.6(H) 11.5 - 14.1 % [facility] Mean Platelet Volume 11.0 7.6 - 12.9 fL [facility] NRBC% auto 0.0 % [facility] NRBC Absolute 0.000 0.000 - 0.000 x10(3)/mc L [facility] Blood specimen (specimen) 12/14/2018 3:25 AM EDT 12/14/2018 3:35 AM EDT Narrative Resulting Agency Comment Spec In Lab Norman Granados MD HEMATOLOGY ORDERABLE S Performing Organization Address [facility] Co de Phone Number [facility] [place] [address] * TSH (12/14/2018 3:25 AM EDT) Thyroid Stimulating Hormone 2.76 0.27 - 4.20 mcIU/mL [facility] Blood specimen (specimen) 12/14/2018 3:25 AM EDT 12/14/2018 3:35 AM EDT Narrative Resulting Agency Comment Spec In Lab Lary Willingham MD CHEMISTRY ORDERABLES Performing Organization Address [facility] de Phone Number [facility] [place] [address] * Magnesium (12/14/2018 3:25 AM EDT) Magnesium 0.74 0.69 - 1.07 mmol/L [facility] Blood specimen (specimen) 12/14/2018 3:25 AM EDT 12/14/2018 3:35 AM EDT Narrative Resulting Agency Comment Spec In Lab Neo Guallpa MD CHEMISTRY ORDERABLES Performing Organization Address [facility] Co de Phone Number [facility] [place] [address] * (ABNORMAL) BMP w/fasting Glucose (12/14/2018 3:25 AM EDT) Glucose Fasting 110(H) 65 - 99 mg/dL [facility] Comment: ?Fasting* Glucose Interpretive Criteria Normal ?65-99 mg/dL Impaired Fasting glucose ?100-125 mg/dL Consistent with Diabetes Mellitus ? >or= 126 mg/dL *Fasting is defined as no caloric intake for at least 8 hours In the absence of unequivocal hyperglycemia a plasma glucose value of >or= 126 mg/dL should be repeated on a subsequent day. Diagnosis and Classification of Diabetes Mellitus, Position Statement from the [place] [employer]. ??Diabetes Care, Volume 33, Supplement 1, Apr 2009 Blood Urea Nitrogen 6(L) 8 - 18 mg/dL [facility] Creatinine 0.44(L) 0.70 - 1.20 mg/dL [facility] Sodium 136 135 - 145 mmol/L [facility] Potassium 4.0 3.5 - 5.0 mmol/L [facility] Comment: Please note: ??Patients with WBC >100,000 may have falsely elevated Potassium levels. ??For accurate Potassium quantification in these patients send serum separator tube (gold top) for subsequent determinations. ??Contact the Clinical Chemistry Laboratory if there are any questions. Chloride 103 98 - 107 mmol/L [facility] Carbon Dioxide 24 22 - 31 mmol/L [facility] Anion Gap 9 5 - 15 mmol/L [facility] Calcium 8.3(L) 8.5 - 10.5 mg/dL [facility] Est Glomerular Filtration Rate 97 >=60 mL/min/1. 73 m?? [facility] Comment: The eGFR was calculated using the CKD-EPI equation. As with all creatinine based estimates of kidney function, eGFR values calculated with the CKD-EPI equation are not accurate in patients with acute kidney failure, extremes of body mass or the acutely ill. http://[employer]/DHMCnkf eGFR 113 >=60 mL/min/1. 73 m?? [facility] Comment: The eGFR was calculated using the CKD-EPI equation. As with all creatinine based estimates of kidney function, eGFR values calculated with the CKD-EPI equation are not accurate in patients with acute kidney failure, extremes of body mass or the acutely ill. http://[employer]/DHMCnkf Blood specimen (specimen) 12/14/2018 3:25 AM EDT 12/14/2018 3:35 AM EDT Narrative Resulting Agency Comment Spec In Lab Neo Guallpa MD CHEMISTRY ORDERABLES [facility] [place] [address] * Lipid Panel (12/14/2018 3:25 AM EDT) Cholesterol, Total 131 mg/dL [facility] Comment: Lower Risk: <200 mg/dL Average Risk: 200-239 mg/dL Higher Risk: >pn=588 mg/dL Triglyceride 148 mg/dL [facility] Comment: Average Risk/Lower Risk: <150 mg/dL Borderline High Risk: 150-199 mg/dL High Risk: 200-499 mg/dL Very High Risk: >th=829 mg/dL HDL Cholesterol 56 mg/dL [facility] Comment: Males: ?? Higher Risk: <40 mg/dL Females: ?? HIgher Risk: <50 mg/dL LDL Cholesterol 45 mg/dL [facility] Comment: Lowest Risk: <100 mg/dL Lower Risk: 100-129 mg/dL Borderline High Risk: 130-159 mg/dL High Risk: 160-189 mg/dL Very High Risk: >bo=699 mg/dL Cholesterol/HDL Ratio 2.3 ratio [facility] Lipid Interpretation See Note [facility] Comment: Lipid management should be guided by a patient? s ASCVD risk, goals and preferences. ACC/AHA Guidelines recommend high intensity statin if clinical ASCVD or LDL greater than or equal to 190 mg/dL. http://Szl.iturl.com/JSV-JAD-Zkzyvwvmn Adults aged 40-75 with LDL 70-189 mg/dL should have their 10 year ASCVD risk estimated with the ACC/AHA ASCVD risk auto damage estimator http://tools.acc.org/BMZWV-Uzwc-Ujdemgwsk/ Statin should be discussed if risk greater than or equal to 7.5% in non-diabetics. With diabetes, moderate intensity statin is recommended if risk less than 7.5%, high intensity if risk greater than or equal to 7.5%. Annual lipid monitoring on statins is not necessary. Evaluate secondary causes of Triglycerides greater than 500 mg/dL or LDL greater than 190 mg/dL: See table 6 of ACC/AHA Guideline. Lifestyle modification is a critical component of ASCVD risk reduction. Blood specimen (specimen) 12/14/2018 3:25 AM EDT 12/14/2018 3:35 AM EDT Narrative Resulting Agency Comment Spec In Lab Lary Willingham MD CHEMISTRY ORDERABLES [facility] [place] [address] * Hemoglobin A1c (12/14/2018 3:25 AM EDT) Hemoglobin A1c 5.5 4.3 - 5.6 % [facility] Comment: Reference Range: 4.3 - 5.6% 5.7 - 6.4% - Increased Risk of Developing Diabetes Mellitus >= 6.5% - Consistent with diagnosis of Diabetes Mellitus In the absence of hyperglycemia (i.e. plasma glucose > 200 mg/dL) or classic symptoms of hyperglycemia a repeat measurement of HbA1c should be performed on a separate sample to confirm the diagnosis. Diagnosis and Classification of Diabetes Mellitus, Diabetes Care 2013; 36: Suppl. 1, Y52-25 Estimated Average Glucose See note mg/dL [facility] Comment: Estimated Average Glucose not appropriate for patients over 70 years of age. eAG equivalents for HbA1c percentages: HbA1c(%) ?eAG(mg/dL) 6.0 ?126 6.5 ?140 7.0 ?154 7.5 ?169 8.0 ?183 8.5 ?197 9.0 ?212 9.5 ?226 10.0 ? 240 Limitations: The eAG calculation has not been validated on women, individuals below 18 years old and above 70 years old, and individuals with hemoglobinopathies. Additional resources are available on the ADA website. Alexis GLYNN, Tulio J, Rick R, et al. ??Translating the A1C assay into estimated average glucose values. ??Diabetes Care 2008:31(8):3737-2786. Blood specimen (specimen) 12/14/2018 3:25 AM EDT 12/14/2018 3:35 AM EDT Narrative Resulting Agency Comment Spec In Lab Lary Willingham MD CHEMISTRY ORDERABLES Performing Organization Address [facility] de Phone Number [facility] [place] [address] * (ABNORMAL) Hepatic Function Panel (12/14/2018 3:25 AM EDT) Protein, Total 5.7(L) 6.1 - 8.0 gm/dL [facility] Albumin 3.2 3.2 - 5.2 gm/dL [facility] Aspartate Aminotransferase 58(H) 0 - 30 unit/L [facility] Alanine Aminotransferase 13 0 - 30 unit/L [facility] Alkaline Phosphatase 98 35 - 105 unit/L [facility] Bilirubin, Total 0.4 0.2 - 1.3 mg/dL [facility] Bilirubin, Direct 0.1 0.0 - 0.3 mg/dL [facility] Blood specimen (specimen) 12/14/2018 3:25 AM EDT 12/14/2018 3:35 AM EDT Narrative Resulting Agency Comment Spec In Lab Lary Willingham MD CHEMISTRY ORDERABLES Performing Organization Address [facility] Co de Phone Number [facility] [place] [address] * (ABNORMAL) Troponin (12/13/2018 6:10 PM EDT) Pathologist [facility] Troponin-T 6.77(H) 0.00 - 0.00 ng/mL [facility] Comment: The 99th percentile for Troponin T is less than 0.01 ng/mL, any detectable cTnT concentration using this assay should be considered elevated. According to the third universal definition of myocardial infarction the following criteria with a clinical presentation consistent with acute myocardial ischemia meets the diagnosis for a myocardial infarction (AR). Detection of a rise and/or fall of cTnT, with at least one value greater than the 99th percentile (> or = 0.01) and with at least one of the following ?? Symptoms of ischemia ?? New or presumed new significant CE-ozcdoti-R wave (ST-T) changes or new left bundle branch block (LBBB) ?? Development of pathologic Q waves in the ECG ?? Imaging evidence of new loss of viable myocardium or new regional wall motion abnormality ?? Identification of an intracoronary thrombus by angiography or autopsy Samples for cTnT testing should be obtained serially upon first assessment and again 3 to 6 hours later. If the clinical suspicion is high and previous samples have been negative an additional sample may be indicated. Reference: Third Patterson Definition of Myocardial Infarction. Journal of the [place] [employer] 2012;60:1581-98 Blood specimen (specimen) 12/13/2018 6:10 PM EDT 12/13/2018 6:18 PM EDT Narrative Resulting Agency Comment Spec In Lab Lary Willingham MD CHEMISTRY ORDERABLES Performing Organization Address [facility] Co de Phone Number [facility] [place] [address] * EKG 12 Lead (12/13/2018 5:41 PM EDT) Pathologist [facility] Ventricular rate 71 BPM MUSE SYSTEM Atrial Rate 71 BPM MUSE SYSTEM P-R Interval 182 ms MUSE SYSTEM QRS Duration 70 ms MUSE SYSTEM Q-T Interval 418 ms MUSE SYSTEM QTC Calculated (Bezet) 454 ms MUSE SYSTEM Calculated P [place] 81 degrees MUSE SYSTEM Calculated R [place] -44 degrees MUSE SYSTEM Calculated T [place] 59 degrees MUSE SYSTEM INTERPRETATION Normal sinus rhythm Left axis deviation Low voltage QRS Inferior infarct , age undetermined Cannot rule out Anteroseptal infarct , age undetermined Abnormal ECG No previous ECGs available Confirmed by MD Pereira Daniel ([id number]) on 12/14/2018 5:12:02 PM MUSE SYSTEM 12/13/2018 5:41 PM EDT 12/14/2018 5:12 PM EDT Neo Guallpa MD ECG ORDERABLES MUSE SYSTEM * ECHO COMPLETE W CONTRAST (12/13/2018 5:28 PM EDT) EF 49 HEARTLAB SYSTEM Anatomical Region Laterality Modality Other 12/14/2018 Narrative 12/14/2018 8:31 AM EDT Procedure: ?Transthoracic Echocardiogram Patient: ?JAMES MARTINO ? (Age): 1940(78y) Med Rec#: ? [id number] ?Sex: ?O ? Site Loc: ? [facility] [place] ?Ht / Wt: ??152(cm)/44(kg) Pt. Loc: ?[facility] ?BSA: ?1.37 Study Date: ?? 12/13/2018 ?Pt. Type: Inpatient Tape: ? Referring: Lary Willingham MD Reading: Abdulkadir Klein ([id number]) Hoisting Laborer: Cody Bowman Diagnosis: *ST elevation (STEMI) myocardial infarction involving left anterior descending coronary artery (I21.02) Rhythm: ? Sinus BP: ? 117/67 HR: ? 73 SUMMARY: 1. The left ventricular chamber size is normal. Basal septal hypertrophy is observed. There is no evidence of LVOT obstruction. Global left ventricular systolic function is mildly reduced. The quantitative left ventricular ejection fraction by biplane Leach's method is 49%. The mid anteroseptal, apical septal, apical anterior, apical lateral, and apical inferior wall segments are akinetic (score 3). The mid anterior, mid anterolateral, mid inferior, and ??mid inferoseptal wall segments are hypokinetic (score 2). The left ventricular diastolic filling pattern is consistent with impaired LV relaxation. Doppler assessment is consistent with normal left sided filling pressure. 2. The left atrium is normal in size. 3. The right ventricle is normal in size. Right ventricular global systolic function is normal. The apex of the right ventricle appears akinetic. 4. There is no hemodynamically significant valve disease. 5. A trivial pericardial effusion is visualized. Findings ? : Study Quality: ? Adequate Left Ventricle: ? The left ventricular chamber size is normal. ?Basal septal hypertrophy is observed. ?There is no evidence of LVOT obstruction. ?Global left ventricular systolic function is mildly reduced. ?The quantitative left ventricular ejection fraction by biplane Leach's method is 49%. ?There are left ventricular segmental wall motion abnormalities present, as shown in the diagram below. ?The left ventricular diastolic filling pattern is consistent with impaired LV relaxation. ?Doppler assessment is consistent with normal left sided filling pressure. ?The ??mid anterior, mid anterolateral, mid inferior, and ??mid inferoseptal wall segments are hypokinetic (score 2). ?The ??mid anteroseptal, apical septal, apical anterior, apical lateral, and ??apical inferior wall segments are akinetic (score 3). ?Overall wallmotion score index is ??1.88 ?No thrombus is visualized within the left ventricle. ?A false chord is observed in the left ventricle. Left Atrium: ? The left atrium is normal in size.28 ml/m2 Right Ventricle: ? The right ventricle is normal in size. ?Right ventricular wall thickness is normal. ?Right ventricular global systolic function is normal. ?There are right ventricular segmental wall motion abnormalities. ?The apex of the right ventricle appears akinetic. ?The estimated pulmonary artery systolic pressure is 32 mmHg. ?The estimated right atrial pressure is 8 mmHg. Right Atrium: ? The right atrium appears normal. Aortic Valve: ? The aortic valve is tricuspid. ?The aortic valve leaflets are mildly thickened. ?There is no evidence of aortic valve stenosis. ?There is no evidence of aortic regurgitation. Mitral Valve: ? The mitral valve leaflets do not appear thickened. ?There is mitral annular calcification. ?There is trace mitral regurgitation present. Tricuspid Valve: ? The tricuspid valve appears normal in structure and function. ?There is mild (1+/4+) tricuspid regurgitation present. Pulmonic Valve: ? The pulmonic valve appears normal in structure and function. ?There is trace pulmonic regurgitation present. Pericardium: ? A trivial pericardial effusion is visualized. ?No pleural effusion is present. Aorta: ? The aortic root is normal in size. ?The ascending aorta is normal in size. Pulmonary Artery: ? The main pulmonary artery appears normal. Venous: ? The inferior vena cava appears normal in size. ?There is less than 50% respiratory change in the inferior vena cava dimension consistent with elevated right atrial pressure. Misc: ? There is no hemodynamically significant valve disease. ?See remainder of report for additional findings. ?Two-dimensional echo, spectral Doppler and color Doppler performed. Chambers 2D ?Value ?Units (Range) ? IVSd (2D) ? 0.8 ?cm ? LVPWd (2D) ?0.9 ?cm ? IVS:LVPW ratio (2D) 0.9 ?ratio ? RWT (2D) ?0.4 ?ratio ? RWT PW (2D) ? 0.4 ?ratio ? LVIDd (2D) ?4.1 ?cm ? LVIDs (2D) ?2.3 ?cm ? LVIDd (2D) index ?3 ?cm/m2 ? LVIDs (2D) index ?1.7 ?cm/m2 ? LV FS (2D) ?44 ? % ? EF Teichholz (2D) ?? 76 ? % ? Ao root diameter (2D3.1 ?cm (2.1 - 3.6) ? Ascending Ao ?3.1 ?cm (2 - 3.5) ? Volumes/Mass ?Value ?Units (Range) ? LA ESV BP (A/L) inde28.2 ? ml/m2 ? LV ESV SP 4CH (MOD) 28.8 ? ml ? LV ESV SP 2CH (MOD) 26.6 ? ml ? LV EDV BP ? 55.7 ? ml ? LV ESV BP ? 28.2 ? ml ? LV EDV BP index ? 40.7 ? ml/m2 ? LV ESV BP index ? 20.6 ? ml/m2 ? BP EF (MOD) ? 49 ? % ? LV mass (2D) ?101.6 ?g ? LV mass (2D) index ??74.2 ? g/m2 ? Diastolic/Systolic Function ?Value ?Units (Range) ? MV E-wave Vmax ?0.5 ?m/sec ? MV deceleration rdgb004.6 ?msec ? MV A-wave Vmax ?0.8 ?m/sec ? MV E:A ratio ?0.7 ?ratio ? LV septal e' Vmax ?? 0 ?m/sec ? LV lateral e' Vmax ??0 ?m/sec ? LV average e' Vmax ??0 ?m/sec ? LV E:e' septal ratio13.5 ? ratio ? LV E:e' lateral rati13.5 ? ratio ? LV average E:e' rati13.5 ? ratio ? Tricuspid Valve ?Value ?Units (Range) ? TR Vmax ? 2.5 ?m/sec ? TR peak gradient ?24.4 ? mmHg ? RAP ? 8 ?mmHg ? RVSP ?32 ? mmHg ? Wall Motion: Segment Name ?Rest ? Base-Anteroseptal ?? Normal ? Base-Anterior ? Normal ? Base-Anterolateral ??Normal ? Base-Posterolateral Normal ? Base-Inferior ? Normal ? Base-Inferoseptal ?? Normal ? Mid-Anteroseptal ?Akinetic ? Mid-Anterior ?Hypokinetic ? Mid-Anterolateral ?? Hypokinetic ? Mid-Posterolateral ??Normal ? Mid-Inferior ?Hypokinetic ? Mid-Inferoseptal ?Hypokinetic ? [place]-Septal ? Akinetic ? [place]-Anterior ? Akinetic ? [place]-Lateral ?Akinetic ? [place]-Inferior ? Akinetic ? [place]-Tip ?Akinetic ? This report has been electronically signed by: Abdulkadir Klein MD ? 12/14/2018 08:30:36 Images reviewed and interpretation verified [facility] Procedure Note Abdulkadir Klein MD - 12/14/2018 Procedure: Transthoracic Echocardiogram Patient: JAMES HARO(Age): 1940(78y) Med Rec#: [id number] Sex: O Site Loc: [facility] [place] Ht / Wt: 152(cm)/44(kg) Pt. Loc: [facility] BSA: 1.37 Study Date: 12/13/2018 Pt. Type: Inpatient Tape: Referring: Lary Willingham MD Reading: Abdulkadir Klein ([id number]) Hoisting Laborer: Cody Bowman Diagnosis: *ST elevation (STEMI) myocardial infarction involving left anterior descending coronary artery (I21.02) Rhythm: Sinus BP: 117/67 HR: 73 SUMMARY: 1. The left ventricular chamber size is normal. Basal septal hypertrophy is observed. There is no evidence of LVOT obstruction. Global left ventricular systolic function is mildly reduced. The quantitative left ventricular ejection fraction by biplane Leach's method is 49%. The mid anteroseptal, apical septal, apical anterior, apical lateral, and apical inferior wall segments are akinetic (score 3). The mid anterior, mid anterolateral, mid inferior, and mid inferoseptal wall segments are hypokinetic (score 2). The left ventricular diastolic filling pattern is consistent with impaired LV relaxation. Doppler assessment is consistent with normal left sided filling pressure. 2. The left atrium is normal in size. 3. The right ventricle is normal in size. Right ventricular global systolic function is normal. The apex of the right ventricle appears akinetic. 4. There is no hemodynamically significant valve disease. 5. A trivial pericardial effusion is visualized. Findings : Study Quality: Adequate Left Ventricle: The left ventricular chamber size is normal. Basal septal hypertrophy is observed. There is no evidence of LVOT obstruction. Global left ventricular systolic function is mildly reduced. The quantitative left ventricular ejection fraction by biplane Leach's method is 49%. There are left ventricular segmental wall motion abnormalities present, as shown in the diagram below. The left ventricular diastolic filling pattern is consistent with impaired LV relaxation. Doppler assessment is consistent with normal left sided filling pressure. The mid anterior, mid anterolateral, mid inferior, and mid inferoseptal wall segments are hypokinetic (score 2). The mid anteroseptal, apical septal, apical anterior, apical lateral, and apical inferior wall segments are akinetic (score 3). Overall wallmotion score index is 1.88 No thrombus is visualized within the left ventricle. A false chord is observed in the left ventricle. Left Atrium: The left atrium is normal in size.28 ml/m2 Right Ventricle: The right ventricle is normal in size. Right ventricular wall thickness is normal. Right ventricular global systolic function is normal. There are right ventricular segmental wall motion abnormalities. The apex of the right ventricle appears akinetic. The estimated pulmonary artery systolic pressure is 32 mmHg. The estimated right atrial pressure is 8 mmHg. Right Atrium: The right atrium appears normal. Aortic Valve: The aortic valve is tricuspid. The aortic valve leaflets are mildly thickened. There is no evidence of aortic valve stenosis. There is no evidence of aortic regurgitation. Mitral Valve: The mitral valve leaflets do not appear thickened. There is mitral annular calcification. There is trace mitral regurgitation present. Tricuspid Valve: The tricuspid valve appears normal in structure and function. There is mild (1+/4+) tricuspid regurgitation present. Pulmonic Valve: The pulmonic valve appears normal in structure and function. There is trace pulmonic regurgitation present. Pericardium: A trivial pericardial effusion is visualized. No pleural effusion is present. Aorta: The aortic root is normal in size. The ascending aorta is normal in size. Pulmonary Artery: The main pulmonary artery appears normal. Venous: The inferior vena cava appears normal in size. There is less than 50% respiratory change in the inferior vena cava dimension consistent with elevated right atrial pressure. Misc: There is no hemodynamically significant valve disease. See remainder of report for additional findings. Two-dimensional echo, spectral Doppler and color Doppler performed. Chambers 2D Value Units (Range) IVSd (2D) 0.8 cm LVPWd (2D) 0.9 cm IVS:LVPW ratio (2D) 0.9 ratio RWT (2D) 0.4 ratio RWT PW (2D) 0.4 ratio LVIDd (2D) 4.1 cm LVIDs (2D) 2.3 cm LVIDd (2D) index 3 cm/m2 LVIDs (2D) index 1.7 cm/m2 LV FS (2D) 44 % EF Teichholz (2D) 76 % Ao root diameter (2D3.1 cm (2.1 - 3.6) Ascending Ao 3.1 cm (2 - 3.5) Volumes/Mass Value Units (Range) LA ESV BP (A/L) inde28.2 ml/m2 LV ESV SP 4CH (MOD) 28.8 ml LV ESV SP 2CH (MOD) 26.6 ml LV EDV BP 55.7 ml LV ESV BP 28.2 ml LV EDV BP index 40.7 ml/m2 LV ESV BP index 20.6 ml/m2 BP EF (MOD) 49 % LV mass (2D) 101.6 g LV mass (2D) index 74.2 g/m2 Diastolic/Systolic Function Value Units (Range) MV E-wave Vmax 0.5 m/sec MV deceleration [id number] msec MV A-wave Vmax 0.8 m/sec MV E:A ratio 0.7 ratio LV septal e' Vmax 0 m/sec LV lateral e' Vmax 0 m/sec LV average e' Vmax 0 m/sec LV E:e' septal ratio13.5 ratio LV E:e' lateral rati13.5 ratio LV average E:e' rati13.5 ratio Tricuspid Valve Value Units (Range) TR Vmax 2.5 m/sec TR peak gradient 24.4 mmHg RAP 8 mmHg RVSP 32 mmHg Wall Motion: Segment Name Rest Base-Anteroseptal Normal Base-Anterior Normal Base-Anterolateral Normal Base-Posterolateral Normal Base-Inferior Normal Base-Inferoseptal Normal Mid-Anteroseptal Akinetic Mid-Anterior Hypokinetic Mid-Anterolateral Hypokinetic Mid-Posterolateral Normal Mid-Inferior Hypokinetic Mid-Inferoseptal Hypokinetic [place]-Septal Akinetic [place]-Anterior Akinetic [place]-Lateral Akinetic [place]-Inferior Akinetic [place]-Tip Akinetic This report has been electronically signed by: Abdulkadir Klein MD 12/14/2018 08:30:36 Images reviewed and interpretation verified [facility] Cardiac Ultrasound Laboratory Lary Willingham MD ECHO ORDERABLES * CARDIAC CATHETERIZATION (12/13/2018 3:31 PM EDT) Anatomical Region Laterality Modality Other Narrative 12/13/2018 3:44 PM EDT ?[facility] ? Cardiac Catheterization/Intervention Report ? Patient Name: James, Estelle ? Procedure Date: 12/13/2018 ? A #: [id number] ? Primary Physician: Mcmanus, Neo V ? Case #: [id number] ? File Name: [id number] ? Catheterization Order Number: [id number] ? [facility] ? Final Report [place], [place] ? Patient Name: ? Estelle James ?ID#: ?[id number] ? : ?1940 ? Procedure Date: ? December 13, 2018 ?Case #: ? [id number] ? Room: ? 6 ? Case Physician: ? Neo Mcmanus MAlfredoD. ? Start: ?14:34 ?Fellow: ? Sotero Mora M.D. ?Admission: ??12/13/2018 ? Discharge: ??12/15/2018 ? Referring Physician: ??Barry Marrero M.D. ? Procedures: ?* Coronary Angiography ?* Left Heart Catheterization ? Pre Case Status: ?These procedures were performed on an emergent basis. ? History ?Estelle Ramirez is a 78 year old woman. She has hypertension. The ?patient's smoking status is Current with Current - Every Day frequency, ?using cigarettes. Cigarette use is Heavy (>=10/day). She has ?hypercholesterolemia managed with lipid therapy. The patient is also ?status post an acute ST elevation myocardial infarction. Prior to the ?initiation of this procedure, the patient was designated as ASA Class IV. ?The C[facility] clinical frailty scale is 3: Managing Well. ? Diagnostic Tests: ?Electrocardiography: ? EKG was assessed by ECG. ?Medications Prior to Procedure: ? Statin. ? Indications for Diagnostic Cath: ?The priority of the diagnostic procedure was Emergent. The indication for ?the cathode builder visit is ACS less than or equal to 24 hrs and new onset ?angina less than or equal to 2 months. Chest pain symptom assessment was: ?Typical Angina. ? Technique: ?A 6 SLFr sheath was inserted in the right radial artery utilizing the ?Seldinger technique. The left coronary artery was injected utilizing a ?6Fr EBU 4.0 catheter. A 5Fr JR 4 catheter was used to inject the right ?coronary artery. Left ventricular pressure was performed with a 5Fr JR 4 ?catheter. 3,000 units of heparin were administered. A total of 100cc of ?Omnipaque were opened, 90cc of Omnipaque were administered and 10cc of ?Omnipaque were wasted. Radiation: Fluoro time was 11.7 minutes, dose area ?product was 21,000 mGYcm2 and air kerma was 323 mGY. See the case log for ?additional details. ?The patient received the following medications prior to and during the ?procedure: ? Unfractionated Heparin and Clopidogrel. ? Hemodynamics: ?Left Heart Pressures ? Resting: ? Syst Diast ? EDP ?a ?v ? m ?Ao 123 ?? 58 ?86 ?LV 125 ? 12 ? Coronary Angiography: ?Dominance: Left ?Left Main ? The left main was normal, free of disease. ?Left Anterior Descending ? There was mild diffuse (<=25% stenosis) disease of the entire vessel ? segment of the left anterior descending artery (LAD). ??The LAD was ? large. ?Left Circumflex ? There was a 30% hazy single discrete stenosis of the ostial segment ? of the left posterior descending branch (LPDA) of the left ? circumflex (LCX). ??The LPDA was moderate in size. ?Right Coronary Artery ? The right coronary artery (RCA) was normal, free of disease. ? Vascular Access: ?Vascular Access Management: ? Mechanical Compression of the right radial artery access site was ? performed. ? Conclusions: ?* Nonobstructive coronary artery disease ? Complications/Events: ?The patient had no complications during these procedures. ?The attending physician was present for the entire procedure. ?Dr. Neo Mcmanus M.D. was present during the moderate sedation ?intraservice time as documented by the sedation nurse. ??Case time = 00:52. ?Dr. Neo Mcmanus M.D. performed the coronary angiography and left heart ?catheterization. ? Neo Mcmanus M.D. ? Electronically Signed by: Neo Mcmanus M.D. ? Report Finalized: 12/13/2018 ??15:40 ? Report Last Ammended: 02/11/2019 ??11:15 ? Procedure Note Neo Mcmanus MD - 02/11/2019 [facility] Cardiac Catheterization/Intervention Report Patient Name: Estelle Ramirez Procedure Date: 12/13/2018 A #: [id number] Primary Physician: Neo Mcmanus V Case #: [id number] File Name: [id number] Catheterization Order Number: [id number] [facility] FinalReport [place], [place] Patient Name: Estelle Ramirez ID#:[id number] :1940 Procedure Date: December 13, 2018 Case #: [id number] Room: 6 Case Physician: Neo Mcmanus M.D. Start: 14:34 Fellow: Sotero Mora M.D. Admission:12/13/2018 Discharge:12/15/2018 Referring Physician: Barry Marrero M.D. Procedures: * Coronary Angiography * Left Heart Catheterization Pre Case Status: These procedures were performed on an emergent basis. History Estelle Ramirez is a 78 year old woman. She has hypertension. The patient's smoking status is Current with Current - Every Dayfrequency, using cigarettes. Cigarette use is Heavy (>=10/day). She has hypercholesterolemia managed with lipid therapy. The patient is also status post an acute ST elevation myocardial infarction. Prior tothe initiation of this procedure, the patient was designated as ASAClass IV. The [facility] clinical frailty scale is 3: Managing Well. Diagnostic Tests: Electrocardiography: EKG was assessed by ECG. Medications Prior to Procedure: Statin. Indications for Diagnostic Cath: The priority of the diagnostic procedure was Emergent. Theindication for the cathode builder visit is ACS less than or equal to 24 hrs and new onset angina less than or equal to 2 months. Chest pain symptom assessmentwas: Typical Angina. Technique: A 6 SLFr sheath was inserted in the right radial artery utilizingthe Seldinger technique. The left coronary artery was injected utilizinga 6Fr EBU 4.0 catheter. A 5Fr JR 4 catheter was used to inject theright coronary artery. Left ventricular pressure was performed with a 5FrJR 4 catheter. 3,000 units of heparin were administered. A total of 100ccof Omnipaque were opened, 90cc of Omnipaque were administered and 10ccof Omnipaque were wasted. Radiation: Fluoro time was 11.7 minutes, dosearea product was 21,000 mGYcm2 and air kerma was 323 mGY. See the caselog for additional details. The patient received the following medications prior to and duringthe procedure: Unfractionated Heparin and Clopidogrel. Hemodynamics: Left Heart Pressures Resting: Syst Diast EDP a v m Ao 123 58 86 LV 125 12 Coronary Angiography: Dominance: Left Left Main The left main was normal, free of disease. Left Anterior Descending There was mild diffuse (<=25% stenosis) disease of the entirevessel segment of the left anterior descending artery (LAD). The LADwas large. Left Circumflex There was a 30% hazy single discrete stenosis of the ostialsegment of the left posterior descending branch (LPDA) of the left circumflex (LCX). The LPDA was moderate in size. Right Coronary Artery The right coronary artery (RCA) was normal, free of disease. Vascular Access: Vascular Access Management: Mechanical Compression of the right radial artery access sitewas performed. Conclusions: * Nonobstructive coronary artery disease Complications/Events: The patient had no complications during these procedures. The attending physician was present for the entire procedure. Dr. Neo Mcmanus M.D. was present during the moderate sedation intraservice time as documented by the sedation nurse. Case time =00:52. Dr. Neo Mcmanus M.D. performed the coronary angiography and leftheart catheterization. Neo Mcmanus M.D. Electronically Signed by: Neo Mcmanus M.D. Report Finalized: 12/13/2018 15:40 Report Last Ammended: 02/11/2019 11:15 Neo Guallpa MD CARDIAC CATH ORDERAB LES documented in this encounter Visit Diagnoses Diagnosis ST elevation myocardial infarction (STEMI), unspecified artery STEMI (ST elevation myocardial infarction) Acute myocardial infarction, unspecified site, episode of care unspecified Hyperlipidemia Other and unspecified hyperlipidemia Hypertension Unspecified essential hypertension Hypothyroidism Unspecified hypothyroidism History of tobacco use Personal history of tobacco use, presenting hazards to health documented in this encounter Admitting Diagnoses Diagnosis STEMI (ST elevation myocardial infarction) Acute myocardial infarction, unspecified site, episode of care unspecified documented in this encounter Administered Medications Inactive Administered Medications - up to 3 most recent administrations Medication Order MAR Action Action Date Dose Rate Site aspirin EC tablet 81 mg 81 mg, Oral, DAILY, First dose on Mon12/14/18 at 0900, Until Discontinued, Routine Given 12/15/2018 9:03 AM EDT 81 mg Given 12/14/2018 8:44 AM EDT 81 mg atorvastatin (LIPITOR) tablet 80 mg 80 mg, Oral, EVERY EVENING, First dose on Emilie 12/13/18 at 1800, Until Discontinued, Routine Given 12/15/2018 5:14 PM EDT 80 mg Given 12/14/2018 5:20 PM EDT 80 mg Given 12/13/2018 6:22 PM EDT 80 mg clopidogrel (PLAVIX) tablet 300 mg 300 mg, Oral, ONCE, 1 dose, On Mon12/13/18 at 1845, Routine Given 12/13/2018 6:47 PM EDT 300 mg enoxaparin (LOVENOX) injection 30 mg 30 mg, Subcutaneous, NIGHTLY, First dose (after last reorder) on Mon12/13/18 at 2100, Until Discontinued, Routine Given 12/14/2018 9:14 PM EDT 30 mg Given 12/13/2018 9:33 PM EDT 30 mg levothyroxine (SYNTHROID) tablet 88 mcg 88 mcg, Oral, EVERY MORNING, First dose on Mon12/14/18 at 0600, Until Discontinued, Routine Given 12/15/2018 6:05 AM EDT 88 mcg Given 12/14/2018 6:40 AM EDT 88 mcg lisinopril (PRINIVIL;ZESTRIL) tablet 2.5 mg 2.5 mg, Oral, DAILY, First dose on Mon12/14/18 at 0900, Until Discontinued, Routine Given 12/15/2018 9:03 AM EDT 2.5 mg Given 12/14/2018 8:44 AM EDT 2.5 mg magnesium oxide (MAG-OX) tablet 400 mg 400 mg, Oral, 2 TIMES DAILY, First dose on Mon12/14/18 at 0900, Until Discontinued, Routine Given 12/15/2018 9:03 AM EDT 400 mg Given 12/14/2018 9:09 PM EDT 400 mg Given 12/14/2018 8:44 AM EDT 400 mg magnesium sulfate 2 g in sterile water 50 mL 2 g, Intravenous, ONCE, 1 dose, On Mon12/14/18 at 0830, Administer over 120 Minutes New Bag 12/14/2018 8:44 AM EDT 2 g 25 mL/hr metoprolol (LOPRESSOR) tablet 12.5 mg 12.5 mg, Oral, EVERY 6 HOURS SCHEDULED, First dose on Mon12/13/18 at 1800, Until Discontinued, Routine Given 12/14/2018 6:40 AM EDT 12.5 mg Given 12/13/2018 11:55 PM EDT 12.5 mg Given 12/13/2018 6:22 PM EDT 12.5 mg metoprolol tartrate (LOPRESSOR) tablet 25 mg 25 mg, Oral, EVERY 6 HOURS SCHEDULED, First dose (after last modification) on Mon12/14/18 at 1200, Until Discontinued, Routine Given 12/15/2018 5:14 PM EDT 25 mg Given 12/15/2018 12:29 PM EDT 25 mg Given 12/15/2018 6:06 AM EDT 25 mg nicotine (NICODERM CQ) 21 mg/24 hr patch 21 mg 21 mg (1 patch), Transdermal, DAILY, First dose on Mon12/13/18 at 1800, Until Discontinued, Routine Patch Applied 12/15/2018 9:01 AM EDT 21 mg 04- Shoulder (Right) Patch Applied 12/14/2018 8:44 AM EDT 21 mg 03- Shoulder (Left) Patch Applied 12/13/2018 6:22 PM EDT 21 mg 10- Arm Upper (Right) nicotine (NICODERM CQ) 21 mg/24 hr patch Patch Removal Transdermal, DAILY, First dose on Mon12/14/18 at 0900, Until Discontinued, Remove nicotine 21 mg/24 hr patch nicotine (NICODERM CQ) 21 mg/24 hr patch Patch Verification Transdermal, 2 TIMES DAILY, First dose on Mon12/14/18 at 0900, Until Discontinued, Verify nicotine 21 mg/24 hr patch perflutren protein-A microspheres (OPTISON) 0.22 mg/mL injection 2.5 mL 2.5 mL, Intravenous, ONCE PRN, 1 dose, Starting on Mon12/13/18 at 1728, Until Mon12/13/18 at 1700, Per Protocol, Routine Given 12/13/2018 5:00 PM EDT 2.5 mL s sodium chloride 0.9 % (flush) flush 5 mL 5 mL, Intravenous, 2 TIMES DAILY, First dose on Mon12/13/18 at 2100, Until Discontinued, Routine Given 12/15/2018 9:03 AM EDT 5 mLs Given 12/14/2018 9:10 PM EDT 5 mLs Given 12/14/2018 8:45 AM EDT 5 mLs sodium chloride 0.9% infusion 100 mL/hr, Intravenous, CONTINUOUS, Starting on Mon12/13/18 at 1615, Until Mon12/13/18 at 2014, Recovery (Recovery-Hospital Unit) Restarted 12/13/2018 5:53 PM EDT 100 mL/hr 100 mL /hr New Bag 12/13/2018 4:15 PM EDT 100 mL/hr 100 mL/hr documented in this encounter Active and Recently Administered Medications Times are shown in EDT. Scheduled Medication Order 12/13/2018 12/14/2018 12/15/2018 aspirin EC tablet 81 mg 81 mg, Oral, DAILY, First dose on Mon12/14/18 at 0900, Until Discontinued, Routine 08 (Given - Provider: Joel Weber RN) 902 (Given - Provider: Tarik Pelletier, CRISTA) atorvastatin (LIPITOR) tablet 80 mg 80 mg, Oral, EVERY EVENING, First dose on Emilie 12/13/18 at 1800, Until Discontinued, Routine 1822 (Given - Provider: Mariann Rodriguez RN) 1720 (Given - Provider: Joel Weber RN) 1714 (Given - Provider: Rosemary Guallpa RN) clopidogrel (PLAVIX) tablet 300 mg (COMPLETED) 300 mg, Oral, ONCE, 1 dose, On Mon12/13/18 at 1845, Routine 184 (Given - Provider: Mariann Rodriguez RN) enoxaparin (LOVENOX) injection 30 mg 30 mg, Subcutaneous, NIGHTLY, First dose (after last reorder) on Mon12/13/18 at 2100, Until Discontinued, Routine 2132 (Given - Provider: Carla Lozano RN) 2113 (Given - Provider: Shania Avitia, CRISTA) levothyroxine (SYNTHROID) tablet 88 mcg 88 mcg, Oral, EVERY MORNING, First dose on Mon12/14/18 at 0600, Until Discontinued, Routine 0640 (Given - Provider: Carla Lozano RN) 06 (Given - Provider: Shania Avitia, CRISTA) lisinopril (PRINIVIL;ZESTRIL) tablet 2.5 mg 2.5 mg, Oral, DAILY, First dose on Mon12/14/18 at 0900, Until Discontinued, Routine 08 (Given - Provider: Joel Weber RN) 09 (Given - Provider: Tarik Pelletier, CRISTA) magnesium oxide (MAG-OX) tablet 400 mg 400 mg, Oral, 2 TIMES DAILY, First dose on Mon12/14/18 at 0900, Until Discontinued, Routine 0844 (Given - Provider: Joel Weber RN)2109 (Given - Provider: Shania Avitia, CRISTA) 0903 (Given - Provider: Tarik Pelletier, CRISTA) magnesium sulfate 2 g in sterile water 50 mL (COMPLETED) 2 g, Intravenous, ONCE, 1 dose, On Mon12/14/18 at 0830, Administer over 120 Minutes 0844 (New Bag - Provider: Joel Weber RN)1044 (Stopped - Provider: Joel Weber RN) metoprolol (LOPRESSOR) tablet 12.5 mg (CANCELED) 12.5 mg, Oral, EVERY 6 HOURS SCHEDULED, First dose on Mon12/13/18 at 1800, Until Discontinued, Routine 1822 (Given - Provider: Mariann Rodriguez RN)2355 (Given - Provider: Carla Lozano RN) 0640 (Given - Provider: Carla Lozano RN) metoprolol tartrate (LOPRESSOR) tablet 25 mg 25 mg, Oral, EVERY 6 HOURS SCHEDULED, First dose (after last modification) on Mon12/14/18 at 1200, Until Discontinued, Routine 1225 (Given - Provider: Joel Weber RN)1720 (Given - Provider: Joel Weber, CRISTA)2309 (Given - Provider: Shania Avitia, CRISTA) 0606 (Given - Provider: Shania Avitia RN)1229 (Given - Provider: Tarik Pelletier, CRISTA)1714 (Given - Provider: Rosemary Guallpa RN) nicotine (NICODERM CQ) 21 mg/24 hr patch 21 mg(Linked Group 1) 21 mg (1 patch), Transdermal, DAILY, First dose on Mon12/13/18 at 1800, Until Discontinued, Routine 1822 (Patch Applied - Provider: Mariann Rodriguez RN) 0844 (Patch Applied - Provider: Joel Weber RN) 0901 (Patch Applied - Provider: Tarik Pelletier RN) nicotine (NICODERM CQ) 21 mg/24 hr patch Patch Removal(Linked Group 1) Transdermal, DAILY, First dose on Mon12/14/18 at 0900, Until Discontinued, Remove nicotine 21 mg/24 hr patch 0900 (Patch Removed - Provider: Joel Weber RN) 0900 (Patch Removed - Provider: Tarik Pelletier, CRISTA) nicotine (NICODERM CQ) 21 mg/24 hr patch Patch Verification(Linked Group 1) Transdermal, 2 TIMES DAILY, First dose on Mon12/14/18 at 0900, Until Discontinued, Verify nicotine 21 mg/24 hr patch 0900 (Patch (dose and location) verified - Provider: Joel Weber, RN)2100 (Patch (dose and location) verified - Provider: Shania Avitia, RN) 0900 (Hold - Provider: Tarik Pelletier RN - Reason: See comment - Comment: new patch applied) sodium chloride 0.9 % (flush) flush 5 mL 5 mL, Intravenous, 2 TIMES DAILY, First dose on Mon12/13/18 at 2100, Until Discontinued, Routine 2133 (Given - Provider: Carla Lozano RN) 0845 (Given - Provider: Joel Weber, RN)2110 (Given - Provider: Shania Avitia, CRISTA) 09 (Given - Provider: Tarik Pelletier, CRISTA) Continuous Medication Order 12/13/2018 12/14/2018 12/15/2018 sodium chloride 0.9% infusion () 100 mL/hr, Intravenous, CONTINUOUS, Starting on Emilie 12/13/18 at 1615, Until Emilie 12/13/18 at 2014, Recovery (Recovery-Hospital Unit) 1615 (New Bag - Provider: Yenifer Grijalva, RN)1735 (Paused - Provider: Mariann Rodriguez RN)1753 (Restarted - Provider: Carla Lozano RN - Comment: restarted when arrived to [facility])212 (Stopped - Provider: Carla Lozano, CRISTA) PRN Medication Order 12/13/2018 12/14/2018 12/15/2018 acetaminophen (TYLENOL) tablet 650 mg 650 mg, Oral, EVERY 4 HOURS PRN, Starting on Emilie 12/13/18 at 1733, Until 12/15/18 at 1940, Pain, Headaches, Maximum dose of acetaminophen is 4000 mg from all sources in 24 hours., Routine heparin (porcine) injection (CANCELED) ONCE PRN, Starting on Emilie 12/13/18 at 1438, Until Emilie 12/13/18 at 1531, Cath (Intra-Procedure), Routine 1438 (Given - Provider: Jayce Arnold, CRISTA) iohexol (OMNIPAQUE) 350 mg/mL solution (CANCELED) ONCE PRN, Starting on Emilie 12/13/18 at 1529, Until Emilie 12/13/18 at 1531, Cath (Intra-Procedure), Routine 1529 (Given - Provider: Neo Guallpa MD) lidocaine (XYLOCAINE) 10 mg/mL (1 %) injection 3 mg 3 mg (0.3 mL), Subcutaneous, ONCE PRN, 1 dose, Starting on Emilie 12/13/18 at 1733, Until 12/15/18 at 1940, for discomfort with PIV insertion, Routine nicotine polacrilex (COMMIT) lozenge 4 mg 4 mg, Buccal, EVERY 1 HOUR PRN, Smoking cessation, Starting on Emilie 12/13/18 at 1733, Until 12/15/18 at 1940, Use the 4 mg lozenge if the patient smokes a cigarette within 20 minutes of waking. If multiple PRN medications for smoking cessation, may give gum concomitant with lozenge. nicotine polacrilex (NICORETTE) gum 4 mg 4 mg, Buccal, EVERY 1 HOUR PRN, Starting on Emilie 12/13/18 at 1733, Until 12/15/18 at 1940, Smoking cessation, Chew for 30 seconds, park in cheek for 30 seconds, repeat. May drink water. If multiple PRN medications for smoking cessation, may give gum concomitant with lozenge., Routine nitroGLYcerin (NITROSTAT) SL tablet 0.4 mg 0.4 mg, Sublingual, EVERY 5 MIN PRN, Starting on Emilie 12/13/18 at 1733, Until 12/15/18 at 1940, Chest pain, May repeat every 5 minutes for a total of three doses. Notify provider if chest pain not relieved with nitroglycerin. Do not administer nitroglycerin if the patient has received or taken phosphodiesterase (PDE-5) inhibitors such as sildenafil, tadalafil or vardenafil within the last 24 to 72 hours., Routine nitroGLYcerin 100 mcg/mL intracoronary dilution (CANCELED) ONCE PRN, Starting on Emilie 12/13/18 at 1435, Until Emilie 12/13/18 at 1531, Cath (Intra-Procedure), Routine 1435 (Given - Provider: Sotero Mora)1508 (Given - Provider: Sotero Mora) perflutren protein-A microspheres (OPTISON) 0.22 mg/mL injection 2.5 mL (COMPLETED) 2.5 mL, Intravenous, ONCE PRN, 1 dose, Starting on Emilie 12/13/18 at 1728, Until Emilie 12/13/18 at 1700, Per Protocol, Routine 1700 (Given - Provider: Cody Bowman) sodium chloride 0.9 % (flush) flush 5-20 mL 5-20 mL, Intravenous, EVERY 1 MIN PRN, Starting on Emilie 12/13/18 at 1733, Until 12/15/18 at 1940, flush, Flush pertains to all indwelling lines. Flush per protocol found in the job aid using the link provided on this medication record., Routine verapamil (ISOPTIN) injection (CANCELED) ONCE PRN, Starting on Emilie 12/13/18 at 1435, Until Emilie 12/13/18 at 1531, Administer over 2 Minutes, Cath (Intra-Procedure) 1435 (Given - Provider: Sotero Moar) Linked Groups Order Group 1: nicotine (NICODERM CQ) 21 mg/24 hr patch 21 mgJump to med 21 mg (1 patch), Transdermal, DAILY, First dose on Emilie 12/13/18 at 1800, Until Discontinued, Routine And nicotine (NICODERM CQ) 21 mg/24 hr patch Patch VerificationJump to med Transdermal, 2 TIMES DAILY, First dose on Mon12/14/18 at 0900, Until Discontinued, Verify nicotine 21 mg/24 hr patch And nicotine (NICODERM CQ) 21 mg/24 hr patch Patch RemovalJump to med Transdermal, DAILY, First dose on Mon12/14/18 at 0900, Until Discontinued, Remove nicotine 21 mg/24 hr patch documented in this encounter Care Teams Hotel Or Motel Receptionist Relationship Specialty Start Date End Date Aislinn William APRN PCP - General Family Medicine 12/13/18 documented as of this encounter
--- OUTSIDE RECORDS SUMMARY | 2024-05-03 15:41 | XMS_ITS | Encounter Summary ---
Author Organization [facility] Address [facility] [place] [address] Care Team Providers Care Maintenance Analyst Name Role Phone BobAislinn cervantes Kelton BUCKLEY Primary Care Provider + Encounter Details Date Type Department Care Team (Late st Contact Info) Description 12/13/2018 Telephone Cardiology at [address] [phone] Ru Navarro MD [facility] [place] [address] Social History Tobacco Use Types Packs/Day Years Used Date Smoking Tobacco: Never Assessed Sex and Gender Information Value Date Recorded Sex Assigned at Not on file Gender Identity Not on file Sexual Orientation Not on file documented as of this encounter Miscellaneous Notes * Telephone Encounter - Ru Navarro - 12/13/2018 12:55 PM EDT STEMI: 78yo woman with no significant past medical history who developed substernal chest pressure for twohours while in her garden. Hypothyroid, Hypertension, HLD. Zocor, Synthroid. Overall healthy. Current smoker. Arrived at [facility] at 12:30PM. ST elevations in anterolateral distribution, although also in the inferior leads. Discussed with outside provider having active 8/10 pain. Given ongoing symptoms and concern for LAD disease, plan for half-dose lytics to be given. Also 75mg of plavix and 325 of aspirin aswell as started on a heparin drip. Times: Lytics - 1:20PM ASA 1PM Plavix 75mg 1:20PM Initial EKG - 12:36PM Left outside hospital via [facility] ~145PM Ru Navarro MD [employer]el Seat Flap Stapler documented in this encounter Plan of Treatment Not on file documented as of this encounter Visit Diagnoses Not on filedocumented in this encounter Care Teams Maintenance Analyst Relationship Specialty Start Date End Date Aislinn William APRN PCP - General Family Medicine 12/13/18 documented as of this encounter
--- OUTSIDE RECORDS SUMMARY | 2024-05-03 15:41 | XMS_ITS | Encounter Summary ---
Author Organization [facility] Address [address] [place] [address] Care Team Providers Care Jackspooler Name Role Phone Unavailable Primary Care Provider Unavailabl e Encounter Details Date Type Department Care Team (Late st Contact Info) Description 05/11/2004 Results Only [facility] - Maple conversion [address] [place] [address] Giuseppe Boone, DO [address] [facility] [address] [address] [address] [place], [place] [id number] Social History Tobacco Use Types Packs/Day Years Used Date Smoking Tobacco: Never Assessed Comments Unknown Sex and Gender Information Value Date Recorded Sex Assigned at Not on file Legal Sex Female 18:12 EST Gender Identity Not on file Sexual Orientation Not on file documented as of this encounter Plan of Treatment Not on file documented as of this encounter Procedures Procedure Name Priority Date/Time Associated Diagnosis Comments SURGICAL PATHOLOGY Routine 05/11/2004 0:00 EST documented in this encounter Results * SURGICAL PATHOLOGY (05/11/2004 0:00 EST) Pathology Report: SURGICAL PATHOLOGY REPORT Reports generated via electronic interface contain original data; however they are lacking the format of the original report. Caution should be taken when reading/interpreti ng unformatted reports. Name: ? SALENA AREVALO ? Accession #: ? [id number] ? : ? 1940 (Age: 63) ??F ? Collect Date: ? 05/11/2004 ? Location: ? [facility] ? Receive Date: ? 05/12/2004 ? Provider: GIUSEPPE BOONE DO Copy to: LETICIA MCKAY ? Final Pathologic Diagnosis: ? Colon, cecum, biopsy: -Tubular adenoma. Document reviewed and electronically signed by: RIA RODRIGUEZ MD Report ??Date: 05/14/2004 15:43 By the signature above, the attending physician certifies that he/she has personally conducted a gross and/or microscopic examination of the described specimens and rendered or confirmed the above diagnosis. Specimen(s) Received: ? Cecal polyp Clinical History: ? Colon Ca screening Gross Description: ? Received in Hollande's fixative labelled James and cecal polyp is a 0.2 x 0.1 x 0.1 cm ferguson-pink polypoid soft tissue. ??Submitted in toto in one cassette. ??(Mary Alice Salazar)/tmg End of Report THUAN CHRISTENSEN 05/11/2004 05/12/2004 14: 59 EST us Giuseppe Boone DO PATHOLOGY ORDERABLES Fi nal Result [facility] [address] [place] [address] documented in this encounter Visit Diagnoses Not on filedocumented in this encounter
--- OUTSIDE RECORDS SUMMARY | 2024-05-03 15:41 | XMS_ITS | Encounter Summary ---
Author Organization [facility] Address [facility] [place] [address] Care Team Providers Care Galley Hand Name Role Phone Aislinn William INA Primary Care Provider + Encounter Details Date Type Department Care Team (Late st Contact Info) Description 03/18/2019 Telephone Cardiology at [address] [phone] Jair Pereira MD [facility] [place] [address] Social History Tobacco Use Types Packs/Day Years Used Date Smoking Tobacco: Former Sex and Gender Information Value Date Recorded Sex Assigned at Not on file Gender Identity Not on file Sexual Orientation Not on file documented as of this encounter Miscellaneous Notes * Telephone Encounter - Nenita Galan RN - 03/18/2019 9:07 AM EST Spoke with Estelle; read results to her. She states she understands. Echocardiogram is scheduled March 27. * Telephone Encounter - Nenita Galan, RN - 03/18/2019 9:06 AM EST ----- Message from Jair Pereira MD sent at 03/17/2019 8:51 PM EST ----- Regarding: RE: carotid ultrasound report is in EPIC now That sounds good- can you convey the good results of the carotids to her. When is she having the echocardiogram? ----- Message ----- From: Nenita Galan, RN Sent: 03/15/2019 8:22 AM EST To: Jair Pereira MD, Lit Card Nurse Subject: carotid ultrasound report is in EPIC now It is in scanned documents. I see that the findings are - - no evidence for hemodynamically significant carotid stenosis But details are in the actual report Does the patient intend to learn of the results when she RTC in 2 months, or would you like me to call her? documented in this encounter Plan of Treatment Not on file documented as of this encounter Visit Diagnoses Not on filedocumented in this encounter Care Teams Galley Hand Relationship Specialty Start Date End Date Aislinn William APRN PCP - General Family Medicine 12/13/18 documented as of this encounter
--- OUTSIDE RECORDS SUMMARY | 2024-05-03 15:41 | XMS_ITS | Referral Summary ---
Author Organization [facility] Address [address] [place] [address] Care Team Providers Care Sheriff Sergeant Name Role Phone Chuy Rush Primary Care Provider [phone] Social History Tobacco Use Types Packs/Day Years Used Date Smoking Tobacco: Never Assessed Comments Unknown Sex and Gender Information Value Date Recorded Sex Assigned at Not on file Legal Sex Female 18:12 EST Gender Identity Not on file Sexual Orientation Not on file Plan of Treatment Not on file Care Teams Sheriff Sergeant Relationship Specialty Start Date End Date Chuy Rush PA [address] [place] [id number] PCP - General 02/21/15
--- OUTSIDE RECORDS SUMMARY | 2024-05-03 15:41 | XMS_ITS | Encounter Summary ---
Author Organization [facility] Address [address] [place] [address] Care Team Providers Care Corporate Coordinator Name Role Phone Unavailable Primary Care Provider Unavailabl e Encounter Details Date Type Department Care Team (Late st Contact Info) Description 08/22/2008 Orders Only [facility] - [facility] ([facility] [address] [place], [place] [id number] Leticia Rush PA [address] [place], [place] [id number] Social History Tobacco Use Types Packs/Day Years [...] Procedure Name Priority Date/Time Associated Diagnosis Comments CYTOPATHOLOGY Routine 08/22/2008 0:00 EDT documented in this encounter Results * CYTOPATHOLOGY (08/22/2008 0:00 EDT) Pathology Report: CYTOPATHOLOGY REPORT ? Reports generated via electronic interface contain original data; ? however they are lacking the format of the original report. ? Caution should be taken when reading/interpreti ng unformatted reports. ? Name: ? SALENA AREVALO ? Accession #: ? [id number] ? : ? 1940 (Age: 67) ??F ?Collect Date: ? 08/22/2008 ? Location: ? [facility] ? Receive Date: ? 08/26/2008 ? Provider: ?LETICIA LONTINE PA ? Copy to: ? Specimen/Source: ?Pap Test, Cervix, ThinPrep Imaging System with manual ?? evaluation ? Last Menstrual Period: ? 10 Years ago ? Previous Gynecologic Pathology: ? Yes: Rectocele repair 2005 ? Other: ? HPVA - HPV testing requested if ASC-US on the current ThinPrep Pap test. ? SPECIMEN ADEQUACY ? Satisfactory for Evaluation ? - assessment of transformation zone component not applicable ( e.g. atrophy, ? vaginal sample, hysterectomy) ? GENERAL CATEGORIZATION ? Negative for Intraepithelial Lesion or Malignancy ? Document reviewed and electronically signed by: ? Steffanie Alex, CT(ASCP) ? Report Date: ??08/27/2008 13:24 ? End of Report ? [facility] CHRISTENSEN 08/22/2008 08/26/2008 us Leticia MCKAY PATHOLOGY ORDERABLES Final Resu lt [facility] [address] [place] [address] documented in this encounter Visit Diagnoses Not on filedocumented in this encounter
--- OUTSIDE RECORDS SUMMARY | 2024-05-03 15:41 | XMS_ITS | Encounter Summary ---
Author Organization [facility] [place] [address] Care Team Providers Care Drill Rig Operator Helper Name Role Phone BobAislinn cervantes Kelton BUCKLEY Primary Care Provider + Encounter Details Date Type Department Care Team (Late st Contact Info) Description 12/13/2018 Notes Only Cardiology at [address] [phone] Norris Sifuentes Social History Tobacco Use Types Packs/Day Years Used Date Smoking Tobacco: Never Assessed Sex and Gender Information Value Date Recorded Sex Assigned at Not on file Gender Identity Not on file Sexual Orientation Not on file documented as of this encounter Progress Notes * Norris Sifuentes - 12/13/2018 3:28 PM EDT Safe STEMI for Seniors A prospective, Multi-center, Unblinded, Randomized trial in Primary PCI Subjects 65 or Older to Assess Safety and Efficacy of Radial Access, Medtronic Resolute [place] Family of Stents, Terumo Hemostasis Device and Complete versus Infarct Related Vessel Revascularization Mud Logger Lary Willingham M.D. Pager # [phone] As Estelle was brought into the cardiac cardiac cath lab manager having been diagnosed with a STEMI, Dr. Mcmanus explained the purposes of the Safe STEMI trial. Estelle agreed to participate and signed the Informed Consent ([facility] 11/14/2018). Estelle was provided a copy of this. No study related activities were conducted prior to completion of the consent process. documented in this encounter Plan of Treatment Not on file documented as of this encounter Visit Diagnoses Not on filedocumented in this encounter Care Teams Drill Rig Operator Helper Relationship Specialty Start Date End Date Aislinn William APRN PCP - General Family Medicine 12/13/18 documented as of this encounter
--- OUTSIDE RECORDS SUMMARY | 2024-05-03 15:41 | XMS_ITS | Encounter Summary ---
Author Organization [facility] Address [facility] [place] [address] Care Team Providers Care Transplanter Orchid Name Role Phone Nataliia Aislinn Melara APRN Primary Care Provider + Encounter Details Date Type Department Care Team (Latest Contact Info) Description 12/13/2018 1:46 PM EDT - 12/13/2018 2:13 PM EDT Hospital [place] [phone] Matt Mcmanus MD [facility] [address] Discharge Disposition: Other [facility] Social History Tobacco Use Types Packs/Day Years Used Date Smoking Tobacco: Never Assessed Sex and Gender Information Value Date Recorded Sex Assigned at Not on file Gender Identity Not on file Sexual Orientation Not on file documented as of this encounter Medications at Time of Discharge [...] tablet by mouth nightly. 3 11/23/2018 01/15/2019 metoprolol tartrate (LOPRESSOR) 25 mg Tablet Take 1 tablet by mouth every 6 hours. 180 tablet 3 12/15/2018 12/15/2018 simvastatin (ZOCOR) 20 mg tablet 05/03/2005 12/15/2018 documented as of this encounter Plan of Treatment Not on file documented as of this encounter Visit Diagnoses Not on filedocumented in this encounter Care Teams Transplanter Orchid Relationship Specialty Start Date End Date Aislinn William APRN PCP - General Family Medicine 12/13/18 documented as of this encounter
--- OUTSIDE RECORDS SUMMARY | 2024-05-03 15:41 | XMS_ITS | Encounter Summary ---
Author Organization [facility] Address [facility] [place] [address] Care Team Providers Care Yarn Winder Name Role Phone Aislinn William APRN Primary Care Provider + Encounter Details Date Type Department Care Team (Late st Contact Info) Description 12/20/2018 Abstract Cardiology at [address] [phone] Jair Pereira MD [facility] [place] [place] [address] Social History Tobacco Use Types Packs/Day Years Used Date Smoking Tobacco: Former Sex and Gender Information Value Date Recorded Sex Assigned at Not on file Gender Identity Not on file Sexual Orientation Not on file documented as of this encounter Plan of Treatment Not on file documented as of this encounter Visit Diagnoses Not on filedocumented in this encounter Care Teams Yarn Winder Relationship Specialty Start Date End Date Aislinn William APRN PCP - General Family Medicine 12/13/18 documented as of this encounter
--- OUTSIDE RECORDS SUMMARY | 2024-05-03 15:41 | XMS_ITS | Encounter Summary ---
Author Organization [facility] Address [facility] [place] [address] Care Team Providers Care Nurse'S Assistant Name Role Phone Aislinn William APRN Primary Care Provider + Encounter Details Date Type Department Care Team (Late st Contact Info) Description 03/06/2019 Ancillary Procedure Radiology Library at [facility] [place] [phone] Aislinn William APRN [address] [place] [address] Social History Tobacco Use Types Packs/Day Years Used Date Smoking Tobacco: Former Sex and Gender Information Value Date Recorded Sex Assigned at Not on file Gender Identity Not on file Sexual Orientation Not on file documented as of this encounter Plan of Treatment Not on file documented as of this encounter Procedures Procedure Name Priority Date/Time Associated Diagnosis Comments FILM LIBRARY STORAGE ONLY ULTRASOUND STUDY Routine 03/06/2019 12:00 AM EST documented in this encounter Results * Film Library- Storage Only Ultrasound Study (03/06/2019 12:00 AM EST) Narrative [facility] - 03/13/2019 3:52 PM EST This exam is auto-finalizing. It's purpose is for storage only. Aislinn William APRN IMG FILM LIBRARY ORD ERABLES [facility] [place], [place] documented in this encounter Visit Diagnoses Not on filedocumented in this encounter Care Teams Nurse'S Assistant Relationship Specialty Start Date End Date Aislinn William APRN PCP - General Family Medicine 12/13/18 documented as of this encounter
--- OUTSIDE RECORDS SUMMARY | 2024-05-03 15:41 | XMS_ITS | Encounter Summary ---
Author Organization [facility] Address [facility] [place] [address] Care Team Providers Care Wood Borer Name Role Phone BobAislinn cervantes Kelton BUCKLEY Primary Care Provider + Encounter Details Date Type Department Care Team (Late st Contact Info) Description 04/23/2019 Telephone Cardiology at [address] [phone] Jair Pereira MD [facility] [place] [address] Social History Tobacco Use Types Packs/Day Years Used Date Smoking Tobacco: Former Sex and Gender Information Value Date Recorded Sex Assigned at Not on file Gender Identity Not on file Sexual Orientation Not on file documented as of this encounter Miscellaneous Notes * Telephone Encounter - Estelle Freitas - 04/23/2019 11:34 AM EST Called [facility] x-ray to see if patient had her echo on 04-19-2019 and if I could have the results faxed over . She did not because the time she was expected to be there was too long. This is the second time shehas shown but would not stay because of the time issue. She has rescheduled to 05-17-2019 @ 2 pm. Jamee at [facility] x-ray said this will probably be the last time they will reschedule her. documented in this encounter Plan of Treatment Not on file documented as of this encounter Visit Diagnoses Not on filedocumented in this encounter Care Teams Wood Borer Relationship Specialty Start Date End Date Aislinn William APRN PCP - General Family Medicine 12/13/18 documented as of this encounter
--- OUTSIDE RECORDS SUMMARY | 2024-05-03 15:41 | XMS_ITS | Encounter Summary ---
Author Organization [facility] Address [facility] [place] [address] Care Team Providers Care Hand Carver Name Role Phone BobAislinn cervantes Kelton BUCKLEY Primary Care Provider + Encounter Details Date Type Department Care Team (Late st Contact Info) Description 02/11/2019 Telephone Cardiology at [address] [phone] Jair Pereira MD [facility] [place] [address] Social History Tobacco Use Types Packs/Day Years Used Date Smoking Tobacco: Former Sex and Gender Information Value Date Recorded Sex Assigned at Not on file Gender Identity Not on file Sexual Orientation Not on file documented as of this encounter Miscellaneous Notes * Telephone Encounter - Rebecca Flor - 02/11/2019 4:33 PM EST The Echo and Carotid were scheduled at [facility] because she has financial help at 100% there. She told me at the 1st appt scheduled with Dr. Pereira she was not able to afford the co pay for the appt and wanted to cancel. I told her there was no co pay for Medicare A&B. I called her explaining why the appts were at [facility] and she understood and remembered. * Telephone Encounter - Pawel Colindres RN - 02/11/2019 3:33 PM EST Called and spoke to patient, she is wondering if it would be possible to schedule her Echo at [facility] instead of due to transportation issues. She currently has appt at for 02/20 for Echo. Let herknow we will look into this for her, and get back to her. * Telephone Encounter - Estelle Freitas - 02/11/2019 3:06 PM EST Patient called because she saw Dr Pereira on 01-15 and some test were set up for her. She would like to know what the tests are and can they be done in [facility] instead of [place]. Please call her back at [phone] documented in this encounter Plan of Treatment Not on file documented as of this encounter Visit Diagnoses Not on filedocumented in this encounter Care Teams Hand Carver Relationship Specialty Start Date End Date Aislinn William APRN PCP - General Family Medicine 12/13/18 documented as of this encounter
--- OUTSIDE RECORDS SUMMARY | 2024-05-03 15:41 | XMS_ITS | Encounter Summary ---
Author Organization [facility] Address [facility] [place] [address] Care Team Providers Care Cashier Or Checker Stock Clerk Name Role Phone BobritikafallonAislinn Kelton BUCKLEY Primary Care Provider + Reason for Visit * Auth/Cert Specialty Diagnoses / Procedures Referred By Contac t Referred To Contact Diagnoses Acute ST elevation myocardial infarction (STEMI) STEMI Procedures CARDIAC CATHETERIZATION Referral ID Status Reason Start Date Expiration Date Visits Re quested Visits Authorized [id number] 1 1 Encounter Details Date Type Department Care Team (Late st Contact Info) Description 12/13/2018 2:40 PM EDT - 12/13/2018 3:40 PM EDT [place] [id number] Neo Mcmanus MD [facility] [place] [address] CARDIAC CATHETERIZATION Social History Tobacco Use Types Packs/Day Years Used Date Smoking Tobacco: Never Assessed Sex and Gender Information Value Date Recorded Sex Assigned at Not on file Gender Identity Not on file Sexual Orientation Not on file documented as of this encounter Last Filed Vital Signs Vital Sign Reading Time Taken Comments Blood Pressure - - Pulse 82 12/13/2018 3:40 PM EDT Temperature - - Respiratory Rate 18 12/13/2018 3:40 PM EDT Oxygen Saturation 94% 12/13/2018 3:40 PM EDT ra Inhaled Oxygen Concentration - - Weight 44.1 kg (97 lb 3.6 oz) 12/13/2018 2:17 PM EDT Height 152.4 cm (5') 12/13/2018 2:17 PM EDT Body Mass Index 18.26 12/13/2018 2:17 PM EDT documented in this encounter Discharge Summaries * Chuy Feng MD - 12/15/2018 2:33 PM EDT Discharge Summary Patient Name: Estelle Ramirez Patient Age: 78 y.o. Language: Angolan Race: White Ethnicity: Not nor Admit date: [...] please contact your inpatient physician through the [facility] Operations Officer Afloat . Issues afterhours and on weekends will [...] and active tobacco use who presented to [facility] via [facility] as transfer from [facility] for non-radiating chest pain foundto have [...] about 2 hours her took her to [facility]. At [facility], EKG showed ST elevations in the inferior and anterolateral leads, with troponin elevated at 0.61. ?? She first presented to [facility] at [address] [facility] via [facility] at 1345. Prior to arriving here per shereceived half-dose TNK lytic therapy (per recommendation by calcine furnace loader here), 75mg of clopidogrel, and 325mg of aspirin; she was also started on a heparin drip. Of note is that her chest pain abated fully shortly before leaving [facility]. Hospital Course: The coronary angiography conducted here at [facility], as noted above, was conducted after receipt [...] lytic therapy she received an route to [facility] resulted in abolition of the lesion. Post-Ad[facility], the patient was started on the appropriate medications for AK, although because she did not receive a that she is not being started on Plavix. She was started on aspirin, BOLIVAR inhibition, beta-blockade, and a high-intensity statin. The patient had an uneventful recovery post-AK. Post-AK transthoracic echocardiogram demonstrated LVEF of 49% with numerous segmental akinetic wall motion abnormalities and hypokinetic wall motion abnormalities, as described below in the TTE summary. Itis difficult to predict just how much myocardial functional improvement the patient will experiencein convalescence from this myocardial infarction. Given that the patient was recovering well from the AK, and she was feeling comfortable and was [...] 3 wbc, hgb, hct plt Recent Labs 12/15/1842912/14/18 0325 WBC 9.1 9.6* HGB 12.7 11.6* HCT 39.4 36.0 PLATELET 248 246 Last 3 Lytes Recent Labs 12/15/18 0430 12/14/18 032 NA 138 136 K 4.2 4.0 CL [...] elevations in inferior and anterolateral leads ?? Post-cork slabs sawyer EKG with NSR and no ST elevations [...] a myocardial infarction. On the way to [facility], you received a therapy that asked to break up clots, and we suspect that this got rid of the clot that had formed in 1 of those arteries, because when we looked directly at the arteries here at [facility], we could not identify any blockages. Call [...] your primary care provider and with a inside sales professional will be arranged. Your Inpatient Doctor: Neo Guallpa MD Your Primary Care Provider: Aislinn William, NUCLEAR MEDICAL TECHNOLOGIST [phone] For questions regarding this document or issues relating to this hospitalization on the Medical Service, please contact your inpatient physician through the [facility] Operations Officer Afloat . Issues afterhours and on weekends will be handled by the Hospitalist staff on-call. General Instructions None Future Appointments and Orders Future Orders Complete By Expires Referral to Cardiac Rehab [PSR107 Custom] As directed Process Instructions: If no progress note charted, please enter Clinical details in comments. Scheduling Instructions: Questions: My question or request is: STEMI. Cardiac rehab at [facility] Discharge References/Attachments Smoking: Stopping (Angolan) Heart Attack: Myocardial Infarction or Acute Coronary Syndrome (Angolan) documented in this encounter Discharge Instructions * [...] a myocardial infarction. On the way to [facility], you received a therapy that asked to break up clots, and we suspect that this got rid of the clot that had formed in 1 of those arteries, because when we looked directly at the arteries here at [facility], we could not identify any blockages. Call [...] your primary care provider and with a inside sales professional will be arranged. Your Inpatient Doctor: Neo Guallpa MD Your Primary Care Provider: Aislinn William, NUCLEAR MEDICAL TECHNOLOGIST [phone] For questions regarding this document or issues relating to this hospitalization on the Medical Service, please contact your inpatient physician through the [facility] Operations Officer [employer]float . Issues afterhours and on weekends will be handled by the Hospitalist staff on-call. * Attachments The following attachments cannot be sent through Care Everywhere. * Smoking: Stopping (Angolan) * Heart Attack: Myocardial Infarction or Acute Coronary Syndrome (Angolan) * Cardiac Rehabilitation (Angolan) documented in this encounter Medications at Time [...] and active tobacco use who presents to [facility] via [facility] as transfer from [facility] s/p lytic therapy for chest pain [...] is a lentigo patch on the right confucianist. The cath site in the right radial [...] elevations in inferior and anterolateral leads ?? Post-cork slabs sawyer EKG with NSR and no ST elevations ?? [facility] (12/13/2018): Hemodynamics: ?Left Heart Pressures ?Resting: [...] HLD, HTN, hypothyroidism, and tobaccowho presents to [facility] via [facility] as transfer from [facility] for substernal chest pain found to have anterolateral and inferior lead ST elevation. She received half-dose lytic therapy prior to arrival to [facility]. Coronary angiography showed no obstructive lesions, however. The story is very convincing formyocardial infarction without prodromal/preceding anginal symptoms, given the elevated troponins and EKG findings at [facility]. Our suspicion is that the lytic therapy en route to [facility] eliminated the coronary arterial lesion that caused this STEMI. Very low to negligible index of suspicion for pericarditis given lack of positional change in pain or worsening with breathing and TTE findings (only a trivial pericardial effusion). Post-AK TTE with LVEF of 49% with apical, anterior, and inferior akinetic wall segments, as well asimpaired LV relaxation. Patient is vitally stable and comfortable. Patient on appropriate post-AK medications, no plavix because no stent was placed. Will be discharging home today if she is able to ambulate safely in the unit. PLAN: #STEMI s/p half-dose lytic therapy and [facility] w/o obstructive findings #Hyperlipidemia -Continue: aspirin 81mg qd -Continue: atorvastatin 80mg qd -Continue: lisinopril 2.5mg qd -Continue: metoprolol tartrate 25mg q6h -TTE post-AK with LVEF of 49% with apical, anterior, and inferior akinetic wall segments, as well as impaired LV relaxation -Continuous telemetry ?? #Hypertension -lisinopril per above ?? #Hypothyroidism -Continue: levothyroxine 88mcg qd -TSH pending ?? #Tobacco use -Nicotine patch, gum, and lozenge PRN -Tobacco cessation counseling consult #Other: -DVT prophylaxis: enoxaparin -GI prophylaxis: none needed -Diet: [facility] -Code Status: FULL -Dispo: Discharge home today if able to ambulate safely It is a pleasure taking part in the care of this patient. Chuy Feng MD Internal Medicine PGY-1 Cardiology S1, Pager #[phone] 12/15/2018 CARDIOLOGY ATTENDING NOTE Patient seen and [...] discharge to home . Neo Mcmanus M.D., F.A.C.C. squirt machine operator (Cardiology) Pager [phone] * Neo Mcmanus MD - 12/14/2018 4:23 PM EDT Inpatient Cardiology Progress Note Patient Name: Estelle Ramirez Date of Admission: 12/13/2018 ( Hospital Day 1 day ) Service: Cardiology S1 ID: Ms. Estelle Ramirez is a 78-year-old female with a history of HLD, HTN, hypothyroidism, and tobaccowho presents to [facility] via [facility] as transfer from [facility] s/p lytic therapy for chest pain [...] is a lentigo patch on the right confucianist. The cath site in the right radial artery is without erythema or purulence; there is no palpable hematoma or auscultatedbruit at the site. ?? Neurological: Awake, alert, and oriented x4. No focal deficits. Labs Recent Labs 12/14/18 0325 WBC 9.6* HGB 11.6* HCT 36.0 PLATELET 246 Recent Labs 12/14/18 0325 NA 136 K 4.0 CL 103 CO2 24 BUN 6* CREATININE 0.44* Recent Labs 12/14/18 0325 AST 58* ALT 13 ALKPHOS 98 BILITOT 0.4 BILIDIR 0.1 Recent Labs 12/14/18 0325 CALCIUM 8.3* MAGNESIUM 0.74 No results for input(s): INR, PT, PTT in the last 168 hours. Recent Labs 12/14/18 1000 12/14/18 0325 12/13/18 1810 TROPONINT 2.58* 3.81* 6.77* No results for input(s): POCGLU in the last 168 hours. Diagnostic Studies: EKG- At [facility] in NSR with ST elevations in inferior and anterolateral leads ?? Post-cork slabs sawyer EKG with NSR and no ST elevations ?? [facility] (12/13/2018): Hemodynamics: ?Left Heart Pressures ?Resting: [...] HLD, HTN, hypothyroidism, and tobaccowho presents to [facility] via [facility] as transfer from [facility] for substernal chest pain found to have anterolateral and inferior lead ST elevation. She received half-dose lytic therapy prior to arrival to [facility]. LHC showed no obstructive lesions, however. The story is very convincing for myocardial infarction without prodromal/preceding anginal symptoms, given [facility] Our suspicion is that the lytic therapy en route to [facility] eliminated the coronary arterial lesion that caused [...] qd -Changing metoprolol to 25mg q6h -TTE post-AK with LVEF of 49% with apical, anterior, and inferior akinetic wall segments, as well as impaired LV relaxation -Continuous telemetry ?? #Hypertension -lisinopril per above ?? #Hypothyroidism -Continue: levothyroxine 88mcg qd -TSH pending ?? #Tobacco use -Nicotine patch, gum, and lozenge PRN -Tobacco cessation counseling consult #Other: -DVT prophylaxis: enoxaparin -GI prophylaxis: none needed -Diet: [facility] -Code Status: FULL -Dispo: Likely discharge home tomorrow It is a pleasure taking part in the care of this patient. Chuy Feng MD Internal Medicine PGY-1 Cardiology S1, Pager #[phone] 12/14/2018 CARDIOLOGY ATTENDING NOTE Patient seen and [...] ACEi as tolerated Neo Mcmanus M.D., F.A.C.C. squirt machine operator (Cardiology) Pager [phone] * Walter Stanley MD [...] bleeding. Dressing c/d/i. No tenderness to palpation. Tar Pot Worker strength 5/5 b/l and sensation intact. Abd: No Abdoul's sign. Back: No flank or back tenderness. [...] PCP: Barry Marrero MD PCP phone #: [phone] ID/Chief Complaint: Chest pain History of Present Illness: Ms. Estelle Ramirez is a 78-year-old female with a history of HLD, HTN, hypothyroidism, and active tobacco use who presents to [facility] via [facility] as transfer from [facility] for non-radiating chest pain found to [...] about 2 hours her husbandtook her to [facility]. At [facility], EKG showed ST elevations in the inferior and anterolateral leads, with troponin elevated at 0.61. She first presented to [facility] at [address] [facility] via [facility] at 1345. Prior to arriving here per shernolviaived half-dose lytic therapy (per recommendation by calcine furnace loader here), 75mg of clopidogrel, and 325mg of aspirin; she was also started on a heparin drip. Of note is that her chest pain abated fully shortly before leaving [facility]. OSH labs prior to transfer: Serum [...] with CVA Social History: Patient lives in [place], [place] with her . Current smoker of 30 years, 1ppd. Started drinking alcohol when she was 19, nowadays drinks about 3 drinks weekly, but used to be a much heavier drinker in the past. No illicit/recreational drugs, or Rx/opioid abuse. 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 Vitals: Last value Range last 24 hrs [...] is a lentigo patch on the right confucianist. Neurological: Awake, alert, and oriented x4. Cranial nerves 2-12 are grossly intact bilaterally, except decreased hearing on the left side. Lines: Peripheral IV in left arm Laboratory: No resulted labs here at this time. CBC w/ diff, BMP, Mg, Lipids, A1c, and TSH pending for AM. Microbiology: None Diagnostic Studies: EKG- At [facility] in NSR with ST elevations in inferior and anterolateral leads Post-cork slabs sawyer EKG with NSR and no ST elevations [facility] (12/13/2018): Hemodynamics: Left Heart Pressures Resting: Syst [...] HLD, HTN, hypothyroidism, and tobaccowho presents to [facility] via [facility] as transfer from [facility] for substernal chest pain found to have anterolateral and inferior lead ST elevation. She received half-dose lytic therapy prior to arrival to [facility]. LHC showed no obstructive lesions, however. The story is very convincing for myocardial infarction without prodromal/preceding anginal symptoms, given [facility] Our suspicion is that the lytic therapy en route to [facility] eliminated the coronary arterial lesion that caused this STEMI. Very low index of suspicion for pericarditis given lack of positional change in pain or worsening with breathing; TTE will help assess further though. Patient received 75mg clopidogrel en route and has been loaded with 300mg of clopidrogel post-C. She was loaded with aspirin prior to arriving here, will start aspirin 81mg qd tomorrow. We will also start high-intensity statin, beta- blockade, and BOLIVAR-inhibitor. TTE conducted post-cork slabs sawyer, read pending. Will order repeat EKG for tomorrow. Ordering CBC w/ diff, BMP, Mag, Lipid panel, A1c, and TSH for AM labs. PLAN: Admit to Cardiology S1, Team Pager #[phone] #STEMI s/p half-dose lytic therapy and LHC w/o obstructive findings #Hyperlipidemia -Start tomorrow: aspirin 81mg qd -Start: atorvastatin 80mg qd -Start tomorrow: clopidogrel 75mg qd -Start: lisinopril 2.5mg qd -Start: metoprolol 12.5mg q6h -TTE conducted here post-cork slabs sawyer, read pending -EKG tomorrow -Continuous telemetry #Hypertension -lisinopril per above #Hypothyroidism -Start: levothyroxine 88mcg qd -TSH draw in AM tomorrow #Tobacco use -Nicotine patch, gum, and lozenge PRN #Other: -DVT prophylaxis: enoxaparin -GI prophylaxis: none needed -Diet: [facility] -Code Status: FULL -Dispo: TBD It is a pleasure taking part in the care of this patient. Chuy Feng MD Internal Medicine PGY-1 Cardiology S1, Pager #[phone] 12/13/2018 Associated attestation - Lary Willingham MD [...] per Dr. Feng's note. Lary Willingham MD [facility] Interventional Cardiology Pager [phone] documented in this encounter Miscellaneous Notes * Plan of Care - Aaliyah Alvarado, PT - 12/15/2018 1:03 PM EDT Physical Therapy Evaluation Patient profile: Ms. Estelle Ramirez is a 78-year-old female with a history of HLD, HTN, hypothyroidism, and active tobacco use??who presents to [facility] via [facility] as transfer from [facility] s/p lytic therapyfor chest pain found [...] LOB. Able to ambulate, change directions and pick up worker objects off the ground without LOB. Denied [...] in this evaluation. Time IN / OUT: 7938-1531 Total Evaluation Minutes, Physical Therapy: (P) 20(eval) Aaliyah Alvarado PT, DPT Pager: [phone] Physical Therapy Inpatient Rehabilitation Department * Hospital Course - Norman Granados MD - 12/14/2018 6:45 PM EDT 12/13: New admission. Chest pain starting this morning. Received lytics at OSH. Non-obstructive disease in cork slabs sawyer here. Starting on home meds and all guideline directed medical therapy. * Care Management - Taiwo Caldwell RN - 12/14/2018 2:01 PM EDT Office of Care Management Initial Assessment Taiwo Caldwell RN reviewed record and discussed patient with [...] Prescription Coverage: yes Preferred Pharmacy: [facility] [place], [place] Primary Care Provider: Aislinn HOLLAND Patient/Caregiver [...] of care planning. Taiwo Caldwell RN Pager: [phone] * Plan of Care - Jessica Garza PT - 12/14/2018 12:59 PM EDT PT Note Spoke with bedsides RNJoel. Per RN, pt without acute PT needs at this time. Pt up mobilizing withnursing. Pt will benefit from cardiac rehab upon d/c. If needs arise nurse to page. Jessica Garza, PT Pager [phone] * Consult Note - Bronwyn Andrews RN [...] in an outpatient cardiac rehabilitation program at [facility] was discussed. Patient agrees to a [...] rehab-? if Pt might be a candidate. JACKIE Wilkerson Pager [phone] * Consult Note - Renetta Stoll RN - 12/13/2018 6:16 PM EDT Images from the original note were not included. Infiltration/Extravasation Scale Estelle Ramirez [id number] CV29/CV29-A Infiltration appearance: Infiltration harm % for [...] PM Name of Plastics MD (if consulted) CASH SHORTAGE INVESTIGATOR CARING FOR THIS PATIENT WILL CONTINUE TO MONITOR AND WILL ASSUME CARE, VASCULAR ACCESS WILL NOT FOLLOW THIS EVENT AT THE SIGNING OF THIS NOTE. * Brief Op Note - Neo Mcmanus MD - 12/13/2018 3:26 PM EDT Brief Operative Note Patient Name: Estelle Ramirez : [id number] MR#: [id number] Case Date: 12/13/2018 Interventional Cardiologiesta: * Neo Mcmanus MD - Primary * Sotero Mora MD - Fellow Preoperative diagnosis: STEMI Postoperative diagnosis: STEMI without obstructive disease Preliminary Cardiac Catheterization Procedure Note: Procedure(s) performed: Coronary Angiography, Left Heart Cath Baseline Frailty Assessment: Definitions from [place] Study of Health and Aging Clinical Frailty [...] Full report to follow. NEO MCMANUS MD squirt machine operator Pager [phone] documented in this encounter Plan [...] (Bezet) 502 ms MUSE SYSTEM Calculated P [place] 53 degrees MUSE SYSTEM Calculated R [place] -34 degrees MUSE SYSTEM Calculated T [place] 170 degrees MUSE SYSTEM INTERPRETATION Normal sinus [...] (ABNORMAL) Differential, Automated (12/15/2018 4:30 AM EDT) Neutrophil % 54.8 % [facility] Neutrophil Absolute 4.97 1.70 - 6.10 x10(3)/mc L [facility] Lymph % 28.2 % [facility] Lymphocytes Abs 2.6 0.9 - 3.2 x10(3)/mc L [facility] Monocyte % 14.5 % [facility] Monocyte Abs 1.3(H) 0.3 - 0.9 x10(3)/mc L [facility] Eos % 1.7 % [facility] Eosinophils Abs 0.2 0.0 - 0.4 x10(3)/mc L [facility] Basophil % 0.4 % [facility] Baso Absolute 0.0 0.0 - 0.1 x10(3)/mc L [facility] Immature Gran % 0.40 % [facility] Comment: Immature granulocytes(IG's)percentage and absolute count will include metamyelocytes, myelocytes, and promyelocytes. Blood smears from CBCs yielding IG's will be scanned manually for concordance. If this scan disagrees with the automated IG or if promyelocytes are noted, a manual differential will be performed. Immature Gran Absolute 0.04 0.00 - 0.04 x10(3)/mc L [facility] Blood specimen (specimen) 12/15/2018 4:30 AM EDT 12/15/2018 5:00 AM EDT Narrative Resulting Agency Comment Spec In Lab Norman Granados MD HEMATOLOGY ORDERABLE S [facility] [place] [address] * (ABNORMAL) Hemogram (12/15/2018 4:30 AM EDT) White Blood Cell 9.1 4.0 - 9.5 x10(3)/[facility] Red Blood Cell 4.25 4.00 - 5.21 x10(6)/ L [facility] Hemoglobin 12.7 11.7 - 15.5 gm/dL [facility] Hematocrit 39.4 35.7 - 45.8 % [facility] Mean Cell Volume 92.7 82.6 - 94.4 fL [facility] Mean Cell Hemoglobin 29.9 27.1 - 32.0 pg [facility] Mean Cell Hemoglobin Concentration 32.2 31.7 - 35.0 gm/dL [facility] Platelet 248 145 - 357 x10(3)/[facility] RDW Standard Deviation 49.1(H) 37.0 - 46.0 [facility] RDW coefficient of variation 14.4(H) 11.5 - 14.1 % [facility] Mean Platelet Volume 10.7 7.6 - 12.9 fL [facility] NRBC% auto 0.0 % [facility] NRBC Absolute 0.000 0.000 - 0.000 x10(3)/[facility] Blood specimen (specimen) 12/15/2018 4:30 AM EDT 12/15/2018 5:00 AM EDT Narrative Resulting Agency Comment Spec In Lab Norman Granados MD HEMATOLOGY ORDERABLE S Performing Organization Address [facility]/ZIP Co de Phone Number [facility] [place] [address] * Magnesium (12/15/2018 4:30 AM EDT) Magnesium 0.93 0.69 - 1.07 mmol/L [facility] Blood specimen (specimen) 12/15/2018 4:30 AM EDT 12/15/2018 5:00 AM EDT Narrative Resulting Agency Comment Spec In Lab Neo Guallpa MD CHEMISTRY ORDERABLES Performing Organization Address [facility] Co de Phone Number [facility] [place] [address] * (ABNORMAL) BMP w/fasting Glucose (12/15/2018 4:30 AM EDT) Glucose Fasting 105(H) 65 - 99 mg/dL [facility] Comment: ?Fasting* Glucose Interpretive Criteria [...] of Diabetes Mellitus, Position Statement from the [place] [employer]. ??Diabetes Care, Volume 33, Supplement 1, Apr 2009 Blood Urea Nitrogen 8 8 - 18 mg/dL [facility] Creatinine 0.57(L) 0.70 - 1.20 mg/dL [facility] Sodium 138 135 - 145 mmol/L [facility] Potassium 4.2 3.5 - 5.0 mmol/L [facility] Comment: Please note: ??Patients with WBC >100,000 may have falsely elevated Potassium levels. ??For accurate Potassium quantification in these patients send serum separator tube (gold top) for subsequent determinations. ??Contact the Clinical Chemistry Laboratory if there are any questions. Chloride 102 98 - 107 mmol/L [facility] Carbon Dioxide 28 22 - 31 mmol/L [facility] Anion Gap 8 5 - 15 mmol/L [facility] Calcium 8.7 8.5 - 10.5 mg/dL [facility] Est Glomerular Filtration Rate 89 >=60 mL/min/1. 73 m?? [facility] Comment: The eGFR was calculated using the CKD-EPI equation. As with all creatinine based estimates of kidney function, eGFR values calculated with the CKD-EPI equation are not accurate in patients with acute kidney failure, extremes of body mass or the acutely ill. [email or web address] eGFR 104 >=60 mL/min/1. 73 m?? [facility] Comment: The eGFR was calculated using the CKD-EPI equation. As with all creatinine based estimates of kidney function, eGFR values calculated with the CKD-EPI equation are not accurate in patients with acute kidney failure, extremes of body mass or the acutely ill. [email or web address]://SIPphone/[facility]kf Blood specimen (specimen) 12/15/2018 4:30 AM EDT 12/15/2018 5:00 AM EDT Narrative Resulting Agency Comment Spec In Lab Neo Guallpa MD CHEMISTRY ORDERABLES [facility] [place] [address] * (ABNORMAL) Troponin (12/14/2018 10:00 AM EDT) Troponin-T 2.58(H) 0.00 - 0.00 ng/mL [facility] Comment: The 99th percentile for Troponin T is less than 0.01 ng/mL, any detectable cTnT concentration using this assay should be considered elevated. According to the third universal definition of myocardial infarction the following criteria with a clinical presentation consistent with acute myocardial ischemia meets the diagnosis for a myocardial infarction (AK). Detection of a rise and/or fall of cTnT, with at least one value greater than the 99th percentile (> or = 0.01) and with at least one of the following ?? Symptoms of ischemia ?? New or presumed new significant VQ-rvuipph-B wave (ST-T) changes or new left bundle [...] additional sample may be indicated. Reference: Third [place] Definition of Myocardial Infarction. Journal of the [place] [employer] 2012;60:1581-98 Blood specimen (specimen) 12/14/2018 10:00 AM EDT 12/14/2018 10:19 AM EDT Narrative Resulting Agency Comment Spec In Lab Lary Willingham MD CHEMISTRY ORDERABLES [facility] [place] [address] * EKG 12 Lead (12/14/2018 8:16 AM EDT) Ventricular rate 63 BPM MUSE SYSTEM Atrial Rate 63 BPM MUSE SYSTEM P-R Interval 186 ms MUSE SYSTEM QRS Duration 68 ms MUSE SYSTEM Q-T Interval 450 ms MUSE SYSTEM QTC Calculated (Bezet) 460 ms MUSE SYSTEM Calculated P [place] 69 degrees MUSE SYSTEM Calculated R [place] -30 degrees MUSE SYSTEM Calculated T [place] 125 degrees MUSE SYSTEM INTERPRETATION Normal sinus [...] MD ECG ORDERABLES MUSE SYSTEM * (ABNORMAL) Troponin (12/14/2018 3:25 AM EDT) [facility] Troponin-T 3.81(H) 0.00 - 0.00 ng/mL [facility] Comment: result rechecked- The 99th percentile for Troponin T is less than 0.01 ng/mL, any detectable cTnT concentration using this assay should be considered elevated. According to the third universal definition of myocardial infarction the following criteria with a clinical presentation consistent with acute myocardial ischemia meets the diagnosis for a myocardial infarction (AK). Detection of a rise and/or fall of cTnT, with at least one value greater than the 99th percentile (> or = 0.01) and with at least one of the following ?? Symptoms of ischemia ?? New or presumed new significant EL-mjpbzwm-Q wave (ST-T) changes or new left bundle [...] additional sample may be indicated. Reference: Third [place] Definition of Myocardial Infarction. Journal of the [place] [employer] 2012;60:1581-98 Blood specimen (specimen) Venous Draw / Unknown 12/14/2018 3:25 AM EDT 12/14/2018 3:35 AM EDT Narrative Resulting Agency Comment Spec In Lab Norman Granados MD CHEMISTRY ORDERABLES [facility] [place] [address] * (ABNORMAL) Differential, Automated (12/14/2018 3:25 AM EDT) Pathologist [facility] Neutrophil % 63.6 % [facility] Neutrophil Absolute 6.10 1.70 - 6.10 x10(3)/ L [facility] Lymph % 22.1 % [facility] Lymphocytes Abs 2.1 0.9 - 3.2 x10(3)/[facility] Monocyte % 12.5 % [facility] Monocyte Abs 1.2(H) 0.3 - 0.9 x10(3)/[facility] Eos % 0.9 % [facility] Eosinophils Abs 0.1 0.0 - 0.4 x10(3)/[facility] Basophil % 0.5 % [facility] Baso Absolute 0.0 0.0 - 0.1 x10(3)/[facility] Immature Gran % 0.40 % [facility] Comment: Immature granulocytes(IG's)percentage and absolute count will include metamyelocytes, myelocytes, and promyelocytes. Blood smears from CBCs yielding IG's will be scanned manually for concordance. If this scan disagrees with the automated IG or if promyelocytes are noted, a manual differential will be performed. Immature Gran Absolute 0.04 0.00 - 0.04 x10(3)/[facility] Blood specimen (specimen) 12/14/2018 3:25 AM EDT 12/14/2018 3:35 AM EDT Narrative Resulting Agency Comment Spec In Lab Norman Granados MD HEMATOLOGY ORDERABLE S [facility] [place] [address] * (ABNORMAL) Hemogram (12/14/2018 3:25 AM EDT) White Blood Cell 9.6(H) 4.0 - 9.5 x10(3)/[facility] Red Blood Cell 3.84(L) 4.00 - 5.21 x10(6)/[facility] Hemoglobin 11.6(L) 11.7 - 15.5 gm/dL [facility] Hematocrit 36.0 35.7 - 45.8 % [facility] Mean Cell Volume 93.8 82.6 - 94.4 fL [facility] Mean Cell Hemoglobin 30.2 27.1 - 32.0 pg [facility] Mean Cell Hemoglobin Concentration 32.2 31.7 - 35.0 gm/dL [facility] Platelet 246 145 - 357 x10(3)/mc L [facility] RDW Standard Deviation 50.0(H) 37.0 - 46.0 fL [facility] RDW coefficient of variation 14.6(H) 11.5 - 14.1 % [facility] Mean Platelet Volume 11.0 7.6 - 12.9 fL [facility] NRBC% auto 0.0 % [facility] NRBC Absolute 0.000 0.000 - 0.000 x10(3)/mc L [facility] Blood specimen (specimen) 12/14/2018 3:25 AM EDT 12/14/2018 3:35 AM EDT Narrative Resulting Agency Comment Spec In Lab Norman Granados MD HEMATOLOGY ORDERABLE S Performing Organization Address City/[facility]/ZIP Co de Phone Number [facility] [place] [address] * TSH (12/14/2018 3:25 AM EDT) Thyroid Stimulating Hormone 2.76 0.27 - 4.20 mcIU/mL [facility] Blood specimen (specimen) 12/14/2018 3:25 AM EDT 12/14/2018 3:35 AM EDT Narrative Resulting Agency Comment Spec In Lab Lary Willingham MD CHEMISTRY ORDERABLES [facility] [place] [address] * Magnesium (12/14/2018 3:25 AM EDT) Magnesium 0.74 0.69 - 1.07 mmol/L [facility] Blood specimen (specimen) 12/14/2018 3:25 AM EDT 12/14/2018 3:35 AM EDT Narrative Resulting Agency Comment Spec In Lab Neo Guallpa MD CHEMISTRY ORDERABLES [facility] [place] [address] * (ABNORMAL) BMP w/fasting Glucose (12/14/2018 3:25 AM EDT) Glucose Fasting 110(H) 65 - 99 mg/dL [facility] Comment: ?Fasting* Glucose Interpretive Criteria [...] of Diabetes Mellitus, Position Statement from the [place] [employer]. ??Diabetes Care, Volume 33, Supplement 1, Apr 2009 Blood Urea Nitrogen 6(L) 8 - 18 mg/dL [facility] Creatinine 0.44(L) 0.70 - 1.20 mg/dL [facility] Sodium 136 135 - 145 mmol/L [facility] Potassium 4.0 3.5 - 5.0 mmol/L [facility] Comment: Please note: ??Patients with WBC >100,000 may have falsely elevated Potassium levels. ??For accurate Potassium quantification in these patients send serum separator tube (gold top) for subsequent determinations. ??Contact the Clinical Chemistry Laboratory if there are any questions. Chloride 103 98 - 107 mmol/L [facility] Carbon Dioxide 24 22 - 31 mmol/L [facility] Anion Gap 9 5 - 15 mmol/L [facility] Calcium 8.3(L) 8.5 - 10.5 mg/dL [facility] Est Glomerular Filtration Rate 97 >=60 mL/min/1. 73 m?? [facility] Comment: The eGFR was calculated using the CKD-EPI equation. As with all creatinine based estimates of kidney function, eGFR values calculated with the CKD-EPI equation are not accurate in patients with acute kidney failure, extremes of body mass or the acutely ill. [email or web address] eGFR 113 >=60 mL/min/1. 73 m?? [facility] Comment: The eGFR was calculated using the CKD-EPI equation. As with all creatinine based estimates of kidney function, eGFR values calculated with the CKD-EPI equation are not accurate in patients with acute kidney failure, extremes of body mass or the acutely ill. [email or web address] Blood specimen (specimen) 12/14/2018 3:25 AM EDT 12/14/2018 3:35 AM EDT Narrative Resulting Agency Comment Spec In Lab Neo Guallpa MD CHEMISTRY ORDERABLES [facility] [place] [address] * Lipid Panel (12/14/2018 3:25 AM EDT) Cholesterol, Total 131 mg/dL [facility] Comment: Lower Risk: <200 mg/dL Average Risk: 200-239 mg/dL Higher Risk: >qc=760 mg/dL Triglyceride 148 mg/dL [facility] Comment: Average Risk/Lower Risk: <150 mg/dL Borderline High Risk: 150-199 mg/dL High Risk: 200-499 mg/dL Very High Risk: >xm=581 mg/dL HDL Cholesterol 56 mg/dL [facility] Comment: Males: ?? Higher Risk: <40 mg/dL Females: ?? HIgher Risk: <50 mg/dL LDL Cholesterol 45 mg/dL [facility] Comment: Lowest Risk: <100 mg/dL Lower Risk: 100-129 mg/dL Borderline High Risk: 130-159 mg/dL High Risk: 160-189 mg/dL Very High Risk: >es=238 mg/dL Cholesterol/HDL Ratio 2.3 ratio [facility] Lipid Interpretation See Note [facility] Comment: Lipid management should be guided by a patient? s ASCVD risk, goals and preferences. ACC/AHA Guidelines recommend high intensity statin if clinical ASCVD or LDL greater than or equal to 190 mg/dL. http://appiris.com/RAN-PMU-Mvhznsnzz Adults aged 40-75 with LDL 70-189 mg/dL should have their 10 year ASCVD risk estimated with the ACC/AHA ASCVD risk estimator jewelry http://tools.acc.org/PREXJ-Eobx-Eprsrcsuj/ Statin should be discussed if risk greater [...] In Lab Lary Willingham MD CHEMISTRY ORDERABLES [facility] [place] [address] * Hemoglobin A1c (12/14/2018 3:25 AM EDT) Hemoglobin A1c 5.5 4.3 - 5.6 % [facility] Comment: Reference Range: 4.3 - [...] Mellitus, Diabetes Care 2013; 36: Suppl. 1, T77-87 Estimated Average Glucose See note mg/dL [facility] Comment: Estimated Average Glucose not [...] into estimated average glucose values. ??Diabetes Care 2008:31(8):5423-6604. Blood specimen (specimen) 12/14/2018 3:25 AM EDT 12/14/2018 3:35 AM EDT Narrative Resulting Agency Comment Spec In Lab Lary Willingham MD CHEMISTRY ORDERABLES [facility] [place] [address] * (ABNORMAL) Hepatic Function Panel (12/14/2018 3:25 AM EDT) [facility] Protein, Total 5.7(L) 6.1 - 8.0 gm/dL [facility] Albumin 3.2 3.2 - 5.2 gm/dL [facility] Aspartate Aminotransferase 58(H) 0 - 30 unit/L [facility] Alanine Aminotransferase 13 0 - 30 unit/L [facility] Alkaline Phosphatase 98 35 - 105 unit/L [facility] Bilirubin, Total 0.4 0.2 - 1.3 mg/dL [facility] Bilirubin, Direct 0.1 0.0 - 0.3 mg/dL [facility] Blood specimen (specimen) 12/14/2018 3:25 AM EDT 12/14/2018 3:35 AM EDT Narrative Resulting Agency Comment Spec In Lab Lary Willingham MD CHEMISTRY ORDERABLES Performing Organization Address City/State/[facility] Co de Phone Number [facility] [place] [address] * (ABNORMAL) Troponin (12/13/2018 6:10 PM EDT) [facility] Troponin-T 6.77(H) 0.00 - 0.00 ng/mL [facility] Comment: The 99th percentile for Troponin T is less than 0.01 ng/mL, any detectable cTnT concentration using this assay should be considered elevated. According to the third universal definition of myocardial infarction the following criteria with a clinical presentation consistent with acute myocardial ischemia meets the diagnosis for a myocardial infarction (AK). Detection of a rise and/or fall of cTnT, with at least one value greater than the 99th percentile (> or = 0.01) and with at least one of the following ?? Symptoms of ischemia ?? New or presumed new significant YY-wqslqpv-F wave (ST-T) changes or new left bundle [...] additional sample may be indicated. Reference: Third [place] Definition of Myocardial Infarction. Journal of the [place] College [employer]iology 2012;60:1581-98 Blood specimen (specimen) 12/13/2018 6:10 PM EDT 12/13/2018 6:18 PM EDT Narrative Resulting Agency Comment Spec In Lab Lary Willingham MD CHEMISTRY ORDERABLES Performing Organization Address [facility] Co de Phone Number [facility] [place] [address] * EKG 12 Lead (12/13/2018 5:41 PM EDT) Ventricular rate 71 BPM MUSE SYSTEM Atrial Rate 71 BPM MUSE SYSTEM P-R Interval 182 ms MUSE SYSTEM QRS Duration 70 ms MUSE SYSTEM Q-T Interval 418 ms MUSE SYSTEM QTC Calculated (Bezet) 454 ms MUSE SYSTEM Calculated P [place] 81 degrees MUSE SYSTEM Calculated R [place] -44 degrees MUSE SYSTEM Calculated T [place] 59 degrees MUSE SYSTEM INTERPRETATION Normal sinus rhythm Left axis deviation Low voltage QRS Inferior infarct , age undetermined Cannot rule out Anteroseptal infarct , age undetermined Abnormal ECG No previous ECGs available Confirmed by MD Pereira Daniel ([id number]) on 12/14/2018 5:12:02 PM MUSE SYSTEM 12/13/2018 5:41 PM EDT 12/14/2018 5:12 PM EDT Neo Guallpa MD ECG ORDERABLES Performing Organization Address [facility] Co de Phone Number MUSE SYSTEM * ECHO COMPLETE W CONTRAST (12/13/2018 5:28 PM EDT) EF 49 HEARTLAB SYSTEM Anatomical Region Laterality Modality Other 12/14/2018 Narrative 12/14/2018 8:31 AM EDT Procedure: ?Transthoracic Echocardiogram Patient: ?JAMES ESTELLE ? (Age): 1940(78y) Med Rec#: ? [id number] ?Sex: ?O ? Site Loc: ? [facility] ?Ht / Wt: ??152(cm)/44(kg) Pt. Loc: ?[facility] ?BSA: ?1.37 Study Date: ?? 12/13/2018 ?Pt. Type: Inpatient Tape: ? Referring: Lary Willingham MD Reading: Abdulkadir Klein ([id number]) Drugless Physician: Cody Bowman Diagnosis: *ST elevation (STEMI) myocardial [...] E-wave Vmax ?0.5 ?m/sec ? MV deceleration ijqu961.6 ?msec ? MV A-wave Vmax ?0.8 ?m/sec [...] ? Mid-Inferior ?Hypokinetic ? Mid-Inferoseptal ?Hypokinetic ? [place]-Septal ? Akinetic ? [place]-Anterior ? Akinetic ? [place]-Lateral ?Akinetic ? [place]-Inferior ? Akinetic ? [place]-Tip ?Akinetic ? This report has been electronically signed by: Abdulkadir Klein MD ? 12/14/2018 08:30:36 Images reviewed and interpretation verified [facility] Procedure Note Abdulkadir Klein MD - 12/14/2018 Procedure: Transthoracic Echocardiogram Patient: JAMES MARTINO (Age): 1940(78y) Med Rec#: [id number] Sex: O Site Loc: [facility] Ht / Wt: 152(cm)/44(kg) Pt. Loc: [facility] BSA: 1.37 Study Date: 12/13/2018 Pt. Type: Inpatient Tape: Referring: Lary Willingham MD Reading: Abdulkadir Klein ([id number]) Drugless Physician: Cody Bowman Diagnosis: *ST elevation (STEMI) myocardial [...] MV E-wave Vmax 0.5 m/sec MV deceleration rvqu058.6 msec MV A-wave Vmax 0.8 m/sec MV [...] Hypokinetic Mid-Posterolateral Normal Mid-Inferior Hypokinetic Mid-Inferoseptal Hypokinetic [place]-Septal Akinetic [place]-Anterior Akinetic [place]-Lateral Akinetic [place]-Inferior Akinetic [place]-Tip Akinetic This report has been electronically signed by: Abdulkadir Klein MD 12/14/2018 08:30:36 Images reviewed and interpretation verified [facility] Lary Willingham MD ECHO ORDERABLES * CARDIAC CATHETERIZATION (12/13/2018 3:31 PM EDT) Anatomical Region Laterality Modality Other Narrative 12/13/2018 3:44 PM EDT ?[facility] ? Cardiac Catheterization/Intervention Report ? Patient Name: Estelle Ramirez ? Procedure Date: 12/13/2018 ? A #: [id number] ? Primary Physician: Mcmanus, Neo V ? Case #: [id number] ? File Name: [id number] ? Catheterization Order Number: [id number] ? [facility] ? Final Report [place], [place] ? Patient Name: ? Estelle James ?ID#: ?[id number] ? : ?1940 ? Procedure Date: ? December 13, 2018 ?Case #: ? [id number] ? Room: ? 6 ? Case Physician: ? Neo Mcmanus M.D. ? Start: ?14:34 ?Fellow: ? Sotero Mora [...] procedure was Emergent. The indication for ?the cork slabs sawyer visit is ACS less than or equal [...] Procedure Note Neo Mcmanus MD - 02/11/2019 [facility] Cardiac Catheterization/Intervention Report Patient Name: Estelle Ramirez Procedure Date: 12/13/2018 A #: [id number] Primary Physician: Neo Mcmanus V Case #: [id number] File Name: [id number] Catheterization Order Number: [id number] [facility] FinalReport [place], [place] Patient Name: Estelle Ramirez ID#:[id number] :1940 Procedure Date: December 13, 2018 Case #: [id number] Room: 6 Case Physician: Neo Mcmanus M.D. [...] patient was designated as ASAClass IV. The [facility] clinical frailty scale is 3: Managing Well. Diagnostic Tests: Electrocardiography: EKG was assessed by ECG. Medications Prior to Procedure: Statin. Indications for Diagnostic Cath: The priority of the diagnostic procedure was Emergent. Theindication for the cork slabs sawyer visit is ACS less than or equal [...] Neo Mcmanus M.D. Electronically Signed by: Neo Mcmansu M.D. Report Finalized: 12/13/2018 15:40 Report Last Ammended: 02/11/2019 11:15 Neo Guallpa MD CARDIAC CATH ORDERAB LES documented in this encounter Visit Diagnoses Not on filedocumented in this encounter Admitting Diagnoses Diagnosis STEMI [...] Given 12/13/2018 6:22 PM EDT 80 mg enoxaparin (LOVENOX) injection 30 mg 30 mg, Subcutaneous, NIGHTLY, First dose (after last reorder) on Emilie 12/13/18 at 2100, Until Discontinued, Routine Given 12/14/2018 9:14 PM EDT 30 mg Given 12/13/2018 9:33 PM EDT 30 mg heparin (porcine) injection ONCE PRN, Starting on Emilie 12/13/18 at 1438, Until Emilie 12/13/18 at 1531, Cath (Intra-Procedure), Routine Given 12/13/2018 2:38 PM EDT 3,000 Units iohexol (OMNIPAQUE) 350 mg/mL solution ONCE PRN, Starting on Emilie 12/13/18 at 1529, Until Emilie 12/13/18 at 1531, Cath (Intra-Procedure), Routine Given 12/13/2018 3:29 PM EDT 90 mLs levothyroxine (SYNTHROID) tablet 88 mcg 88 mcg, [...] Given 12/14/2018 8:44 AM EDT 400 mg metoprolol tartrate (LOPRESSOR) tablet 25 mg [...] Discontinued, Verify nicotine 21 mg/24 hr patch nitroGLYcerin 100 mcg/mL intracoronary dilution ONCE PRN, Starting on Mon12/13/18 at 1435, Until Mon12/13/18 at 1531, Cath (Intra-Procedure), Routine Given 12/13/2018 3:08 PM EDT 150 mcg Given 12/13/2018 2:35 PM EDT 150 mcg sodium chloride 0.9 % (flush) flush 5 mL 5 mL, Intravenous, 2 TIMES DAILY, First dose on Mon12/13/18 at 2100, Until Discontinued, Routine Given 12/15/2018 9:03 AM EDT 5 mLs Given 12/14/2018 9:10 PM EDT 5 mLs Given 12/14/2018 8:45 AM EDT 5 mLs verapamil (ISOPTIN) injection ONCE PRN, Starting on Mon12/13/18 at 1435, Until Mon12/13/18 at 1531, Administer over 2 Minutes, Cath (Intra-Procedure) Given 12/13/2018 2:35 PM EDT 2.5 mg documented in this encounter Active and Recently Administered Medications Times are shown in EDT. Scheduled Medication Order 12/13/2018 12/14/2018 12/15/2018 aspirin EC tablet 81 mg 81 mg, Oral, DAILY, First dose on Mon12/14/18 at 0900, Until Discontinued, Routine 0844 (Given - Provider: Joel Weber RN) 09 (Given - Provider: Tarik Pelletier RN) atorvastatin (LIPITOR) tablet 80 mg 80 mg, Oral, EVERY EVENING, First dose on Mon12/13/18 at 1800, Until Discontinued, Routine 1822 (Given - Provider: Mariann Rodriguez RN) 1720 (Given - Provider: Joel Weber RN) 1714 (Given - Provider: Rosemary Guallpa RN) clopidogrel (PLAVIX) tablet 300 mg (COMPLETED) 300 mg, Oral, ONCE, 1 dose, On Mon12/13/18 at 1845, Routine 1847 (Given - Provider: Mariann Rodriguez RN) enoxaparin (LOVENOX) injection 30 mg 30 mg, Subcutaneous, NIGHTLY, First dose (after last reorder) on Mon12/13/18 at 2100, Until Discontinued, Routine 213 (Given - Provider: Carla Lozano, CRISTA) 2113 (Given - Provider: Shania Avitia, CRISTA) levothyroxine (SYNTHROID) tablet 88 mcg 88 mcg, Oral, EVERY MORNING, First dose on Mon12/14/18 at 0600, Until Discontinued, Routine 0640 (Given - Provider: Carla Lozano, CRISTA) 06 (Given - Provider: Shania Avitia, CRISTA) lisinopril (PRINIVIL;ZESTRIL) tablet 2.5 mg 2.5 mg, Oral, DAILY, First dose on Mon12/14/18 at 0900, Until Discontinued, Routine 0844 (Given - Provider: Joel Weber RN) 0903 (Given - Provider: Tarik Pelletier, CRISTA) magnesium oxide (MAG-OX) tablet 400 mg 400 mg, Oral, 2 TIMES DAILY, First dose on Mon12/14/18 at 0900, Until Discontinued, Routine 0844 (Given - Provider: Joel Weber RN)2109 (Given - Provider: Shania Avitia RN) 0903 (Given - Provider: Tarik Pelletier, CRISTA) [...] Joel Weber RN)1720 (Given - Provider: Joel Weber RN)2309 (Given - Provider: Shania Avitia RN) 0606 (Given - Provider: Shania Avitia RN)1229 [...] RN) 0901 (Patch Applied - Provider: Tarik Pelletier, CRISTA) nicotine (NICODERM [...] Discontinued, Verify nicotine 21 mg/24 hr patch 09 (Patch (dose and location) verified - Provider: Joel Weber RN)2099 (Patch (dose and location) verified - Provider: Shania Avitia RN) 0900 (Hold - Provider: Tarik Pelletier RN - Reason: See comment - Comment: new patch applied) sodium chloride 0.9 % (flush) flush 5 mL 5 mL, Intravenous, 2 TIMES DAILY, First dose on Mon12/13/18 at 2100, Until Discontinued, Routine 2132 (Given - Provider: Carla Lozano RN) 0845 (Given - Provider: Joel Weber, CRISTA)211 (Given - Provider: Shania Avitia, CRISTA) 0903 (Given - Provider: Tarik Pelletier, CRISTA) Continuous Medication Order 12/13/2018 12/14/2018 12/15/2018 sodium chloride 0.9% infusion () 100 mL/hr, Intravenous, CONTINUOUS, Starting on Emilie 12/13/18 at 1615, Until Emilie 12/13/18 at 2014, Recovery (Recovery-Hospital Unit) 1615 (New Bag - Provider: Yenifer Grijalva, CRISTA)1735 (Paused - Provider: Mariann Rodriguez RN)1753 (Restarted - Provider: Carla Lozano RN - Comment: restarted when arrived to [facility])212 (Stopped - Provider: Carla Lozano, [...] (Intra-Procedure), Routine 1438 (Given - Provider: Jayce Arnold RN) iohexol (OMNIPAQUE) 350 mg/mL solution (CANCELED) ONCE [...] Cath (Intra-Procedure) 1435 (Given - Provider: Sotero Mora) Linked Groups Order Group 1: nicotine (NICODERM CQ) 21 mg/24 hr patch 21 mgJump to med 21 mg (1 patch), Transdermal, DAILY, First dose on Mon12/13/18 at 1800, Until Discontinued, Routine And nicotine [...] patch documented in this encounter Care Teams Cashier Or Checker Stock Clerk Relationship Specialty Start Date End Date Aislinn William APRN PCP - General Family Medicine 12/13/18 documented as of this encounter
--- OUTSIDE RECORDS SUMMARY | 2024-05-03 15:41 | XMS_ITS | Encounter Summary ---
Author Organization [place] [address] Care Team Providers Care Airport Attendant Name Role Phone Aislinn William APRN Primary Care Provider + Encounter Details Date Type Department Care Team (Late st Contact Info) Description 12/13/2018 External Results [place] [address] Social History Tobacco Use Types Packs/Day Years Used Date Smoking Tobacco: Never Assessed Sex and Gender Information Value Date Recorded Sex Assigned at Not on file Gender Identity Not on file Sexual Orientation Not on file documented as of this encounter Plan of Treatment Not on file documented as of this encounter Procedures Procedure Name Priority Date/Time Associated Diagnosis Comments ECG SCAN Routine 12/13/2018 ECG SCAN Routine 12/13/2018 documented in this encounter Results * Scan Doc: ECG (12/13/2018) Historical Provider MD MEDIA MGR SCAN EX T ORDR/RSLT * Scan Doc: ECG (12/13/2018) Historical Provider MD MEDIA MGR SCAN EX T ORDR/RSLT documented in this encounter Visit Diagnoses Not on filedocumented in this encounter Care Teams Airport Attendant Relationship Specialty Start Date End Date Aislinn William APRN PCP - General Family Medicine 12/13/18 documented as of this encounter
--- OUTSIDE RECORDS SUMMARY | 2024-05-03 15:41 | XMS_ITS | Encounter Summary ---
Author Organization [facility] [place] [address] Care Team Providers Care Director It Name Role Phone BobAislinn cervantes Kelton BUCKLEY Primary Care Provider + Encounter Details Date Type Department Care Team (Late st Contact Info) Description 12/28/2018 Notes Only Cardiology at [address] [phone] Norris Sifuentes Social History Tobacco Use Types Packs/Day Years Used Date Smoking Tobacco: Former Sex and Gender Information Value Date Recorded Sex Assigned at Not on file Gender Identity Not on file Sexual Orientation Not on file documented as of this encounter Progress Notes * Norris Sifuentes - 12/28/2018 1:34 PM EDT Safe STEMI for Seniors A prospective, Multi-center, Unblinded, Randomized trial in Primary PCI Subjects, 65 or Older to assess Safety and Efficacy of Radial Access, Medtronic Resolute Family of Stents, Terumo Hemostasis Device and Complete versus Infarct Related Vessel Revascularization. Icd 9 Coder Lary Willingham M.D. Pager # [phone] I called and spoke with Estelle today regarding her participation in the SAFE STEMI trial. Estelle doesnot want to have to return to [place] for her one month follow-up visit as it is a hardship for herto come this far. She has an appointment in [place], which is closer to her home. Estelle did agreeto stay in the study and let us gather information from her visit in [place]. She also agreed (again) to have Mcdonald contact her for the 1 year follow-up call. documented in this encounter Plan of Treatment Not on file documented as of this encounter Visit Diagnoses Not on filedocumented in this encounter Care Teams Director It Relationship Specialty Start Date End Date Aislinn William APRN PCP - General Family Medicine 12/13/18 documented as of this encounter
--- OUTSIDE RECORDS SUMMARY | 2024-05-03 15:41 | XMS_ITS | Encounter Summary ---
Author Organization [facility] Address [facility] [place] [address] Care Team Providers Care Clinical Administrative Coordinator Name Role Phone BobAislinn cervantes Kelton BUCKLEY Primary Care Provider + Reason for Visit * Reason Comments Establish Care follow up from STEMI admission Encounter Details Date Type Department Care Team (Late st Contact Info) Description 01/15/2019 4:00 PM EDT Office Visit Cardiology at [address] [place] [address] Jair Pereira MD [facility] [place] [address] ST elevation myocardial infarction (STEMI), unspecified artery; Right carotid bruit; Cardiomyopathy, ischemic Social History Tobacco Use Types Packs/Day Years [...] Pulse 67 01/15/2019 3:42 PM EDT Temperature - - Respiratory Rate 14 01/15/2019 3:42 PM EDT Oxygen Saturation - - Inhaled Oxygen Concentration - - Weight 44 kg (97 lb) 01/15/2019 3:42 PM EDT Height - - Body Mass Index 18.94 12/13/2018 2:17 PM EDT documented in this encounter Progress Notes * Jair Pereira MD - 01/15/2019 4:00 PM EDT Images from the original note were not included. at [facility], Cardiology [address] [place], [place] [address] CARDIOLOGY OUTPATIENT NEW PATIENT NOTE PRIMARY CARE PROVIDER: Aislinn William APRN PROBLEM LIST: Patient Active Problem List Diagnosis ??? Cardiomyopathy, ischemic 12/2018 (anterolateral stemi of unclear etiology) EF 49%. The mid anteroseptal, apical septal, apical anterior, apical lateral, and apical inferior wall segments are akinetic (score 3). The mid anterior, mid anterolateral, mid inferior, and mid inferoseptal wall segments are hypokinetic (score 2). ??? Right carotid bruit ??? STEMI (ST elevation myocardial infarction) 12/13/2018: typical presentation, with diffuse GRAHAM Received half dose lytics at [facility] Cath: no obstructive disease. No clear culprit ??? Hyperlipidemia ??? Hypertension ??? Hypothyroidism ??? History of tobacco use MEDICATIONS: Current Outpatient Medications Medication Sig Dispense Refill ??? aspirin 81 mg Tablet, Delayed Release (E.C.) Take 1 tablet by mouth daily. 30 tablet 3 ??? atorvastatin (LIPITOR) 80 mg Tablet Take 1 tablet by mouth every evening. 90 tablet 3 ??? lisinopril (PRINIVIL;ZESTRIL) 2.5 mg Tablet Take 1 tablet by mouth daily. 90 tablet 3 ??? acetaminophen (TYLENOL) 325 mg Tablet Take 2 tablets by mouth every 4 hours as needed. 30 tablet 1 ??? metoprolol succinate (TOPROL-XL) 100 mg Tablet Sustained Release 24 hr Take 1 tablet by mouth daily. 30 tablet 3 ??? LEVOTHYROXINE SODIUM (SYNTHROID ORAL) (Patient taking differently: Take 88 mcg by mouth every morning.) ??? estrogens, conjugated, (PREMARIN) vaginal cream Taper/Titrate, VagTaper/Titrate, Vag. Take 0.625MG/1G Once daily for 7 Days.Take 0.3125MG/0.5G twice a week for 3 Weeks. ??? buPROPion (WELLBUTRIN SR) 100 mg tablet sustained-release 12 hr Take 1 tablet by mouth daily. Prescribed by HOLLAND Dempsey 2 ??? magnesium oxide (MAG-OX) 400 mg (241.3 mg magnesium) Tablet Take 1 tablet by mouth 2 times daily. (Patient not taking: Reported on 01/15/2019) 30 tablet 12 ??? nicotine polacrilex (COMMIT) [address] 1 lozenge inside cheek every hour as needed forSmoking cessation. (Patient not taking: Reported on 01/15/2019) 100 tablet 3 ??? nitroGLYcerin (NITROSTAT) 0.4 mg Tablet, Sublingual Place 1 tablet under the tongue every 5 minutes as needed for Chest pain. (Patient not taking: Reported on 01/15/2019) 90 tablet 12 ??? nicotine (NICODERM CQ) 14 mg/[address] 1 patch onto the skin daily. (Patient not taking: Reported on 01/15/2019) 28 patch 3 No current facility-administered medications for this visit. Subjective: Patient ID: Estelle Ramirez is a 78 y.o. female. HPI: 78 F presents on index cardiovascular clinic interface to followup STEMI Per H&P dated 12/13/2018: from [facility] for non-radiating chest pain found to have anterolateral and inferior lead ST elevation.She had been working around the house this morning (baking, dishes, etc) when she acutely developedpain across her chest. She describes the pain as a sharp, lingering pain that lasted for about 2 hours. The pain was not progressive; it started at about a 9/[address] until it resolved. The pain did not radiate anywhere. There were no associated symptoms. The pain was not positionallydependent or worsened by breathing. She has never had any sort of pain or symptom like this before.She denies any recent development of dyspnea or orthopnea; she denies any recent URI symptoms. After having the pain for about 2 hours her took her to [facility]. At [facility], EKG showed ST elevations in the inferior and anterolateral leads, with troponin elevated at 0.61. On cath, she was found to have no culprit lesions and without significant CAD. She was discharged on ASA, high dose statin, beta blockade. Since then, she has had no issues. She hasn't been very active since then, but remains without exertional chest pain, dyspnea, presyncope. Denies LH, syncope, palpitations, orthopnea, pnd, weight gain, edema. ROS: 11 point ros either negative or per HPI Family history: No family history on file. Social history: Social History Tobacco Use ??? Smoking status: Former Smoker Substance Use Topics ??? Alcohol use: Not on file ??? Drug use: Not on file Objective: Most Recent Vitals: 01/15/19 1542 BP: 114/57 Pulse: 67 Resp: 14 Gen: pleasant female in NAD Eyes: Non-injected, no scleral icterus HEENT: atraumatic, MMM Cor: rrr, s1/s2 of nl character and amplitude, no m/r/g. Estimated RAP not elevated. Right carotid with bruit. Pulm: CTAB. Normal diaphragmatic movement without use of accessory muscles. Decrease amplitude of breath sounds Ab: soft, nt, no hernias Ext: no c/c/e. Dp/pt ++ Neuro: without focal deficit Skin: WWP, no rashes nor ulcers Psych: normal affect and insight EKG: nsr with anterolateral TWI (serial changes of anterolateral infarct) TTE 12/14/2018 1. The left ventricular chamber size is [...] 5. A trivial pericardial effusion is visualized. Assessment and Plan: STEMI (ST elevation myocardial infarction) I don't think I have a clear understanding of the rationale behind the patient's evident STEMI withtypical presentation. I dont think it is stress CDM as she had coronary distribution HK on the echocardiogram. A paradoxical embolus would fit the presentation. If no intra-cardiac shunt identified, would consider rhythm monitoring - TTE (attention: LV global and regional function, agitated saline study to evaluate for PFO) - Continue asa, lipitor 80 - patient has stopped smoking Cardiomyopathy, ischemic - Diuresis: not needed - Cardioprotection: toprol 100, lisinopril 2.5 - Devices: none indicated Right carotid bruit Carotid duplex rtc 4 months Jair Pereira MD documented in this encounter Miscellaneous Notes * Assessment & Plan Note - Jair Pereira MD - 01/15/2019 4:46 PM EDT Associated Problem(s): Right carotid bruit Carotid duplex * Assessment & Plan Note - Jair Pereira MD - 01/15/2019 4:46 PM EDT Associated Problem(s): Cardiomyopathy, ischemic - Diuresis: not needed - Cardioprotection: toprol 100, lisinopril 2.5 - Devices: none indicated * Assessment & Plan Note - Jair Pereira MD - 01/15/2019 4:42 PM EDT Associated Problem(s): STEMI (ST elevation myocardial infarction) I don't think I have a clear understanding of the rationale behind the patient's evident STEMI withtypical presentation. I dont think it is stress CDM as she had coronary distribution HK on the echocardiogram. A paradoxical embolus would fit the presentation. If no intra-cardiac shunt identified, would consider rhythm monitoring - TTE (attention: LV global and regional function, agitated saline study to evaluate for PFO) - Continue asa, lipitor 80 - patient has stopped smoking documented in this encounter Plan of Treatment Not on file documented as of this encounter Procedures Procedure Name Priority Date/Time Associated Diagnosis Comments EKG 12-LEAD Routine 01/15/2019 4:03 PM EDT documented in this encounter Results * EKG 12 Lead (01/15/2019 4:03 PM EDT) Ventricular rate 64 BPM MUSE SYSTEM Atrial Rate 64 BPM MUSE SYSTEM P-R Interval 174 ms MUSE SYSTEM QRS Duration 82 ms MUSE SYSTEM Q-T Interval 428 ms MUSE SYSTEM QTC Calculated (Bezet) 441 ms MUSE SYSTEM Calculated P [place] 66 degrees MUSE SYSTEM Calculated R [place] -10 degrees MUSE SYSTEM Calculated T [place] 148 degrees MUSE SYSTEM INTERPRETATION Normal sinus rhythm Low voltage QRS Inferior infarct (cited on or before 13-DEC-2018 ) Cannot rule out Anterior infarct (cited on or before 13-DEC-2018 ) T wave abnormality , consider lateral ischemia Abnormal ECG When compared with ECG of 15-DEC-2018 11:11, Serial changes of Anterior infarct Present Confirmed by MD Randall, Jair ([id number]) on 01/17/2019 11:59:48 AM MUSE SYSTEM 01/15/2019 4:03 PM EDT 01/17/2019 11:59 AM EDT Unknown ECG ORDERABLES MUSE SYSTEM documented in this encounter Visit Diagnoses Diagnosis ST elevation myocardial infarction (STEMI), unspecified artery Right carotid bruit Other symptoms involving cardiovascular system Cardiomyopathy, ischemic Other specified forms of chronic ischemic heart disease documented in this encounter Care Teams Clinical Administrative Coordinator Relationship Specialty Start Date End Date Aislinn William APRN PCP - General Family Medicine 12/13/18 documented as of this encounter
--- OUTSIDE RECORDS SUMMARY | 2024-05-03 15:41 | XMS_ITS | Encounter Summary ---
Author Organization [facility] Address [address] [place] [address] Care Team Providers Care Binitrotoluene Operator Name Role Phone Unavailable Primary Care Provider Unavailabl e Encounter Details Date Type Department Care Team (Late st Contact Info) Description 02/01/2005 Results Only [facility] [address] [place] [address] Edgar Vasquez MD [address] [facility] [id number] [phone] Social History Tobacco Use Types Packs/Day Years [...] Date/Time Associated Diagnosis Comments SURGICAL PATHOLOGY Routine 02/01/2005 0:00 EDT documented in this encounter Results * SURGICAL PATHOLOGY (02/01/2005 0:00 EDT) Pathology Report: SURGICAL PATHOLOGY REPORT Reports generated via electronic interface contain original data; however they are lacking the format of the original report. Caution should be taken when reading/interpreti ng unformatted reports. Name: ? SALENA AREVALO ? Accession #: ? [id number] ? : ? 1940 (Age: 64) ??F ? Collect Date: ? 02/01/2005 ? Location: ? [facility] ? Receive Date: ? 02/02/2005 ? Provider: EDGAR VASQUEZ MD Copy to: LETICIA MCKAY ? Final Pathologic Diagnosis: ? Endometrium, biopsy: 1. ?Detached strips of inactive endometrial glands. 2. ?Abundant mucus and scant fragments of benign endocervical tissue. Document reviewed and electronically signed by: PPEE CHEN MD Report ??Date: 02/03/2005 16:27 By the signature above, the attending physician certifies that he/she has personally conducted a gross and/or microscopic examination of the described specimens and rendered or confirmed the above diagnosis. Specimen(s) Received: ? Endometrial biopsy Clinical History: ? Vag discharge Gross Description: ? Received in formalin labelled James and endometrium is 1 cc of blood tinged mucus admixed with scant fragments of red-brown tissue. ??The specimen is submitted entirely in one cassette. ??(Carson Eric)/[facility] End of Report THUAN CHRISTENSEN 02/01/2005 02/02/2005 9:3 3 EDT us Edgar Vasquez MD PATHOLOGY ORDERABLES Final Resu lt THUAN CHRISTENSEN [address] [place] [address] documented in this encounter Visit Diagnoses Not on filedocumented in this encounter
[2024-05-03 19:48] LABS: ALT 19 U/L (14-59); AST 19 U/L (15-37); Albumin 3.6 g/dL (3.4-5.0); Alkaline Phosphatase 84 U/L (46-116); Anion Gap 3.3 mmol/L (3-11); BUN 17 mg/dL (7-18); Bilirubin, Total 0.35 mg/dL (0.2-1.0); CO2 32.7 mmol/L (21.0-32.0); CREATININE 0.7 mg/dL (0.55-1.02); Calcium 9.3 mg/dL (8.5-10.1); Chloride 105 mmol/L (98-107); Glucose 91 mg/dL (74-106); Potassium 4.6 mmol/L (3.5-5.1); Sodium 141 mmol/L (136-145); TSH (W/Ref FT4) 3.96 uIU/mL (0.36-3.74); Total Protein 7.2 g/dL (6.4-8.2)
[2024-05-03 20:11] LABS: FREE T4 1.25 ng/dL (0.76-1.46)
== END 2024-05-03 15:35 | disposition home or self-care (01) ==
LOC: NCHCN 15:34
PROVIDERS: PCP Physician Assistant; Visit Provider Physician Assistant
DX: E03.9 Hypothyroidism, unspecified (principal); I25.5 Ischemic cardiomyopathy
CPT/HCPCS: 80053; 84439; 84443

== ENCOUNTER 2024-11-15 15:06 | Outpatient (CLI) | payer MEDICARE, SELFPAY ==
[2024-11-15 13:36] LABS: Abs Immature Grans 0.04 10^3/uL (0.0-0.06); HCT 42.4 % (36.0-46.0); HGB 14.3 g/dL (11.2-15.7); Immature Grans % 0.5 %; MCH 31.3 pg (27.0-33.0); MCHC 33.7 % (32.0-36.0); MCV 93 fL (80-95); MPV 10.5 fL (8.0-11.0); Platelet Count 250 10^3/uL (130-400); RBC 4.57 10^6/uL (3.93-5.22); RDW 14.1 % (11.7-14.6); RDW-SD 48.1 fL; WBC 8.79 10^3/uL (4.4-10.8)
[2024-11-15 14:01] LABS: ALT 17 U/L (14-59); AST 17 U/L (15-37); Albumin 3.6 g/dL (3.4-5.0); Alkaline Phosphatase 57 U/L (46-116); Anion Gap 9.0 mmol/L (3-11); BUN 13 mg/dL (7-18); Bilirubin, Total 0.4 mg/dL (0.2-1.0); CO2 28.0 mmol/L (21.0-32.0); Calcium 8.9 mg/dL (8.5-10.1); Calculated LDL 122 mg/dL (<100); Chloride 101 mmol/L (98-107); Cholesterol 240 mg/dL (<200); Estimated GFR 89.01 (mL/min/1.73m2); Glucose 103 mg/dL (74-106); HDL Cholesterol 96 mg/dL (>or=50); Potassium 4.0 mmol/L (3.5-5.1); Sodium 138 mmol/L (136-145); TSH (W/Ref FT4) 30.46 uIU/mL (0.36-3.74); Total Protein 6.9 g/dL (6.4-8.2); Triglyceride 112 mg/dL (<150)
== END 2024-11-15 15:07 | disposition home or self-care (01) ==
LOC: LBO 15:07
PROVIDERS: PCP Physician Assistant; Visit Provider Physician Assistant
DX: E03.9 Hypothyroidism, unspecified (principal); Z01.818 Encounter for other preprocedural examination; E78.5 Hyperlipidemia, unspecified
CPT/HCPCS: 36415; 80053; 80061; 84439; 84443; 85025

== ENCOUNTER 2024-11-22 06:10 | Day surgery (SDC) | payer MEDICARE, SELFPAY ==
--- NOTE | 2024-11-22 06:12 | W.ANESPRE ---
General Info Date of Service Date Performed: 11/22/24 Height: 5 ft Weight: 40.823 kg Body Mass Index (BMI): 17.6 Surgical Procedure: Operation Date: 11/22/24 07:40 Proposed Procedure Side Surgeon p Cataract Extraction with IOL Implant Right Edilberto Coffman MD Meds Allergies and Home Medications Allergies Allergy/AdvReac Type Severity Reaction Status Date / Time No Known Allergies Allergy Verified 11/22/24 06:27 Home Medication ?Medication ?Instructions ?Recorded polyethylene glycol 3350 17 gram 17 gm PO for colonoscopy #1 g 05/20/16 oral powder packet (Miralax) atorvastatin 40 mg tablet 40 mg PO DAILY 05/03/21 levothyroxine 112 mcg capsule 112 mcg PO DAILY 05/03/21 lisinopril 2.5 mg tablet 2.5 mg PO DAILY 05/03/21 Current Visit Medications: Current Medications Generic Name Dose Route Start Last Admin Trade Name Freq PRN Reason Stop Dose Admin Acetaminophen 1,000 mg 11/22/24 06:00 Acetaminophen 500 Mg Tab PO 12/22/24 05:59 Q4H PRN PRN Balanced Salt Solution 500 ml 11/22/24 06:00 Balanced Salt Soln.-Plus 500 Ml Bag OP 12/22/24 05:59 DIRECTED NELLY Miscellaneous Medication 0 ml 11/22/24 06:00 Prednisolone 1%, Moxifloxacin 0.5%, Bromfenac 0.09% 5.6ml Btl OD 12/22/24 05:59 DIRECTED NELLY Miscellaneous Medication 0 ml 11/22/24 06:00 Tropicam./Phenyleph. (1/2.5%) 5 Ml Btl OD 12/22/24 05:59 DIRECTED NELLY Tetracaine HCl 0 ml 11/22/24 06:00 Tetracaine 0.5% 4 Ml Btl OD 12/22/24 05:59 DIRECTED NELLY PFSH Active Problems Active Problems: Problem Status Onset Code Posterior subcapsular age-related cataract, right eye Acute H25.041 Cortical age-related cataract, right eye Acute H25.011 Nuclear age-related cataract, right eye Acute H25.11 Hypothyroidism Acute HTN (hypertension) with goal to be determined Acute I10 Hyperlipidemia, unspecified Acute E78.5 STEMI (ST elevation myocardial infarction) Acute I21.3 Ischemic cardiomyopathy Acute I25.5 Smoker Acute F17.200 Medical History Medical History smoking cessation Constipation Abdominal bloating Uterine prolaps Cystocele HTN HLP Surgical History Surgical History Rectocele, Paravaginal repair Colonoscopy - IV Sedation (05/27/16) Colonoscopy (05/04/10) Tobacco Smoking/Tobacco Use Status: Current-Occasional Tobacco Type: cigarettes Smoking packs per day: 1 Smoking cigarettes per day: 20.0 Years smoked: 43 Smoking pack-years: 43.00 Alcohol Alcohol Intake: current Alcohol intake frequency: a few times a month Substance Use Substance use: Never Vital Signs and Lab Results Vital Signs Most Recent Vital Signs in EMR: Temp Pulse Resp BP Pulse Ox 36.3 C L 70 16 136/64 97 11/22/24 06:15 11/22/24 06:15 11/22/24 06:15 11/22/24 06:15 11/22/24 06:15 Lab Results Complete Blood Count: WBC, (4.4-10.8) 8.79 10^3/uL 11/15/24, 13:30 RBC, (3.93-5.22) 4.57 10^6/uL 11/15/24, 13:30 Hgb, (11.2-15.7) 14.3 g/dL 11/15/24, 13:30 Hct, (36.0-46.0) 42.4 % 11/15/24, 13:30 Plt Count, (130-400) 250 10^3/uL 11/15/24, 13:30 Complete Metabolic Panel: Sodium, (136-145) 138 mmol/L 11/15/24, 13:30 Potassium, (3.5-5.1) 4.0 mmol/L 11/15/24, 13:30 Chloride, (98-107) 101 mmol/L 11/15/24, 13:30 Carbon Dioxide, (21.0-32.0) 28.0 mmol/L 11/15/24, 13:30 BUN, (7-18) 13 mg/dL 11/15/24, 13:30 Creatinine, (0.55-1.02) 0.6 mg/dL 08/08/25, 13:30 Est GFR (CKD-EPI 2020), (mL/min/1.73m2) 89.01 11/15/24, 13:30 Calcium, (8.5-10.1) 8.9 mg/dL 11/15/24, 13:30 Albumin, (3.4-5.0) 3.6 g/dL 11/15/24, 13:30 Glucose, (74-106) 103 mg/dL 11/15/24, 13:30 Liver Function Panel: ALT, (14-59) 17 U/L 11/15/24, 13:30 AST, (15-37) 17 U/L 11/15/24, 13:30 Thyroid Panel: TSH, (0.36-3.74) 30.46 uIU/mL H 11/15/24, 13:30 Anesthesia Assessment and Plan Anesthesia History Personal History: No History of Anesthesia Complications Family History: No Family History of Anesthesia Complications Exercise Tolerance Exercise Tolerance: Metabolic Equivalents<4 Cardiac & Pulmonary Exam Cardiac Exam: Normal S1/S2 Heart Sounds Pulmonary Exam: Clear Bilateral Breath Sounds Implantable Cardiac Device Does patient have a Pacemaker or an ICD?: No Airway Exam Known Difficult Airway: No Mallampati Class: 3 Mouth Opening: Narrow (< 3cm) Thyromental Distance: Less than 3 cm Neck Range of Motion: Limited ROM Neck Circumference: Normal Teeth Condition: Generalized Poor Dentition ASA Classification ASA Score: ASA 3 Emergency Case?: No NPO Status NPO Status: NPO Clears >2 hours, Solids >8 hours Anesthesia Plan Resuscitation Status: Full Code Anesthesia Technique: MAC Anesthesia Airway Planned: Natural Airway Monitors Used: Standard Monitors Preoperative Comments:: 84 yo female for cataract removal. Very hard of hearing. No MKO. Sig PMHx: HTN (lisinopril), STEMI ( a few years ago, does not use NTG, does not get chest pain with exertion), ischemic cardiomyopathy, hypothyroid (levothyroxine), smoker, occ EtOh. Carotid US: no sig stenosis.
[2024-11-22 06:15] VITALS: BP 136/64; PULSE 70; RESP 16; TEMP 36.3; O2SAT 97
[2024-11-22] MEDS: Tropicam./Phenyleph. (1/2.5%) 5 ML BTL ×3 (06:23→06:36)
[2024-11-22 06:52] VITALS: BMI 17.6
[2024-11-22] MEDS: Povidone-Iodine Ophth 30 ML BTL (07:25)
[2024-11-22] MEDS: Tetracaine 0.5% 4 ML BTL (07:25)
[2024-11-22] MEDS: Lidocaine 1% Pres-Free 5 ML VIAL (07:33)
[2024-11-22] MEDS: Duovisc Viscoelastic System EACH 1 EACH ×2 (07:33→08:00)
[2024-11-22] MEDS: Phenylephrine/Lidocaine (15/10) MG/ML 1 ML VIAL (07:33)
[2024-11-22] MEDS: Trypan Blue 0.06% 0.5 ML SYR (07:34)
[2024-11-22] MEDS: Balanced Salt Soln.-PLUS 500 ML BAG OP ×2 (07:35→08:10)
[2024-11-22] MEDS: Prednisolone 1%, Moxifloxacin 0.5%, Bromfenac 0.09% 5.6ML BTL 5.6 ML (08:09)
[2024-11-22] MEDS: Moxifloxacin-PF 1 MG/ML VIAL (08:09)
[2024-11-22 08:40] VITALS: BP 139/61; PULSE 64; RESP 18; TEMP 36.5; O2SAT 95
--- NOTE | 2024-11-22 08:41 | W.PM.DSUDISC ---
Date of service: 11/22/24 Discharge Plan Disposition Patient Disposition: Home Discharge Details Attending Provider: Edilberto Coffman Primary Care Provider: Ellen Coronel Home Meds and New Rx's Prescriptions: No Action polyethylene glycol 3350 [Miralax] 17 GM powder in packet 17 gm PO for colonoscopy Qty: 1 atorvastatin 40 mg tablet 40 mg PO DAILY lisinopril 2.5 mg tablet 2.5 mg PO DAILY levothyroxine 112 mcg capsule 112 mcg PO DAILY Discharge Instructions Stand Alone Forms: DSU Post-Op Cataract, Chetan Cochran (DSU) Discharge Orders Discharge Orders: Discharge Order (Routine); Ordered 11/22/24 Ordered By: Edilberto Coffman DS: Diagnosis Discharge Diagnosis (1) Posterior subcapsular age-related cataract, right eye: Status: Resolved (2) Cortical age-related cataract, right eye: Status: Resolved (3) Nuclear age-related cataract, right eye: Status: Resolved
--- NOTE | 2024-11-22 08:42 | ROE_ITS ---
Operative Note Operative Note PRE-OP DIAGNOSIS: Mature, advanced, nuclear/cortical/posterior subcapsular cataract, right eye POST-OP DIAGNOSIS: same PROCEDURE: Cataract extraction using phacoemulsification with intraocular lens implant, right eye Insertion of capsule tension ring, right eye SURGEON: Edilberto Coffman ANESTHESIA TYPE: Local By Surgeon and MAC Refer to Anesthesia Record ESTIMATED BLOOD LOSS: 0 PATHOLOGY: none sent COMPLICATIONS: None Patient was transported to: same day Patient's condition: stable Implants: Dez Clareon CCA0T0 Morcher Type 15 capsule tension ring Indications: Progressive decreased vision due to cataract, right eye Procedure Description: CATARACT SURGERY OPERATIVE REPORT PREOPERATIVE DIAGNOSIS: Mature, brunescent, nuclear/cortical/posterior subcapsular cataract, right eye POSTOPERATIVE DIAGNOSIS: Same OPERATION: Cataract extraction using phacoemulsification with posterior chamber intraocular lens implant, right eye. Insertion of capsule tension ring, right eye IOL: IOL Director Electronics/Model: Dez Clareon [id number] IOL Power: + 25.0 diopters IOL Serial Number: [id number] Optic Diameter: 6.0mm Haptic/Overall Diameter: 13.0mm PHACO INFO: Dez rankururion Vision System with OZil and Active Fluidics Cumulative Dispersed Energy (CDE): 73.81 seconds SURGEON: Edilberto Coffman MD, KASSIE ANESTHESIA: Monitored Anesthesia Care (MAC), with local sub-tenon's anesthetic infiltration COMPLICATIONS: None SPECIMENS: None INDICATIONS FOR PROCEDURE: The patient is an 84-year-old lady with history of poor vision in her right eye for many years. She has noted to have a mature white cataract with a dense brunescent nucleus underlying. The option of cataract surgery was offered to the patient and she wished to proceed. See office notes for detailed information. PROCEDURE: The correct surgical eye was identified and marked as the right eye and the pupil was dilated in the preoperative area using mydriatics and cycloplegics. The dilated pupil size was 5.0 mm. The patient elected to proceed without oral sedation. The patient was brought to the operating room where cardiopulmonary monitoring was instituted and surgical time-out was performed, confirming the correct operative eye and IOL power. Topical anesthesia was administered and ophthalmic povidone-iodine 5% was instilled into the conjunctival fornices. The sejal-ocular area was prepped with Betadine 10% solution and draped in the usual sterile fashion for intraocular surgery, including an aperture drape. A Tegaderm transparent film dressing was cut in half and used to cover the lashes and lid margins. Care was taken to sequester the lashes and lid margins under the Tegaderm dressing. A lid speculum was placed between the lids of the operative eye and the Dez LuxOR Revalia operating microscope was maneuvered into position. Fabiola scissors were then used to make a conjunctival buttonhole approximately 6mm posterior to the limbus in the inferonasal quadrant. Blunt dissection was carried out to expose bare sclera, and a blunt-tipped sub-tenon?s anesthesia cannula was introduced and passed posteriorly along the globe where non- preserved plain lidocaine was injected into posterior sub-Tenon?s space. A sideport knife was used to make a paracentesis port. VisionBlue was injected into the anterior chamber and allowed to sit for 30 seconds. Intraocular phenylephrine/lidocaine was injected into the anterior chamber. The anterior chamber was then filled with dispersive viscoelastic. A keratome knife was used to construct a two--plane clear corneal tunnel extending 2.0mm into clear cornea. A flap was raised on the anterior capsule centrally, resulting in a gush of liquefied cortical material into the anterior chamber. Irrigation/aspiration was used to aspirate the liquefied cortical material from the anterior chamber as well as to massage the capsule to express any further liquefied cortex. The anterior chamber was then filled with dispersive viscoelastic. Capsulorhexis forceps were used to complete a continuous curvilinear capsulorhexis of 4.5 mm with the intention of enlarging later. The capsule was noted to be very thin, but with fibrotic bands inferiorly, resulting in an irregular capsular tear. Moderate to severe diffuse zonular laxity was noted. Irrigation/aspiration was used to remove all the liquefied cortex from in front of and behind the lens, resulting in a dense brunescent nucleus remaining, which was highly mobile within the capsular bag. The lens nucleus was then disassembled and removed within the capsular bag and iris plane using phacoemulsification. A deep central groove was sculpted into the lens nucleus, which was then rotated 180 degrees and the groove continued. Attempts to crack the lens into 2 halves were unsuccessful, so additional dispersive viscoelastic was used to protect the corneal endothelium and the central groove was lengthened and deepened, several times. Nucleus splitters were then used to initiate a crack in the dense nucleus. 2 instruments were then used to fully separate the 2 halves. Each nuclear half was then subtyped into multiple smaller fragments under dispersive viscoelastic protection, and carefully removed at the iris plane. The pupil constricted to 3 mm during phacoemulsification. Residual cortical material was removed using the I/A handpiece. There was very little cortical material remaining. The iris margin had to be retracted in order to confirm removal of all the cortical material. The capsular bag was then inflated and the anterior chamber deepened with cohesive viscoelastic. A Morcher Type 15 capsular tension ring was then carefully injected into the capsular bag. The lens implant described above was inserted into the capsular bag using the Dez Autonome Injector. A Kuglen hook was used to dial the IOL into position. Additional cohesive viscoelastic was then injected, and microscissors were used to attempt to cut the capsular margin inferiorly to enlarge the capsulorrhexis. However the capsule failed to cut, just distorted. We elected not to make further attempts to enlarge the capsulorrhexis in case of causing a radial tear, now that the capsule tension ring was in place.. Yag laser anterior capsule relaxing incisions will be perfromed if necessary . Residual viscoelastic was then removed first from posterior to the IOL, then from the anterior chamber using the I/A handpiece. The lens implant was noted to center nicely within the capsular bag. The incisions were stromally hydrated, and the anterior chamber was reformed using BSS. Then 0.5cc of moxifloxacin 1.0mg/ml were injected into the capsular bag and anterior chamber. The incisions were checked with a Weck spear and found to be secure. Several drops of ophthalmic povidone-iodine 5% were then applied to the eye followed by two drops of combination steroid/NSAID/antibiotic solution. The drapes were removed and a clear plastic protective eye shield was placed over the eye. The patient was then returned to Same Day Surgery in stable condition. Date of Procedure: 11/22/24
--- NOTE | 2024-11-22 08:45 | W.ANESPOSTOP ---
Postoperative Evaluation Date, Time and Location Date Performed: 11/22/24 Time Performed: 08:45 Patient Location: Day Surgery Unit Vital Signs Most Recent Imported Vital Signs: Most Recent Vital Signs Temp Pulse Resp BP Pulse Ox 36.5 C 64 18 139/61 95 11/22/24 08:40 11/22/24 08:40 11/22/24 08:40 11/22/24 08:40 11/22/24 08:40 Pain Score Most Recent Pain Score: Most Recent Pain Score Pain Level 0 11/22/24 08:40 Assessment Mental Status: Awake (Alert & Oriented to Patient Baseline) Airway and Respiratory Function: Patent airway with normal (patient baseline) respiratory exam Cardiovascular Function: Hemodynamically Stable Hydration Status: Adequately Hydrated Nausea & Vomiting: No Nausea or Vomiting Pain: Pt. Denies Any Pain Peripheral Nerve Block: Patient did not receive a nerve block
== END 2024-11-22 09:03 | disposition home or self-care (01) ==
LOC: SUR 06:11
PROVIDERS: PCP Physician Assistant; Visit Provider Ophthalmology
PROC: (CPT 66984; principal; 2024-11-22 07:30)
DX: H25.11 Age-related nuclear cataract, right eye (principal); H25.041 Posterior subcapsular polar age-related cataract, right eye; H25.011 Cortical age-related cataract, right eye
CPT/HCPCS: 66984; 00123; V2632; J2003